=== PATIENT | female | born 1965 | race Caucasian/White ===

== ENCOUNTER 2020-01-18 05:47 | Day surgery (SDC) | payer OTHER ==
[~2020-01-18 05:47] MED LIST: DIPRIVAN 200 MG/20 ML IV ONE; Ketamine HCl 50 MG/ML ONE
[2020-01-18] MEDS ORDERED: Lactated Ringers 1,000 ML IV SCH (06:30)
[2020-01-18 08:49] VITALS: O2SAT 100
[2020-01-18 08:55] VITALS: BP 143/93; PULSE 84
--- NOTE | 2020-01-18 15:32 | OP ---
SURGERY DATE/TIME: 01/18/2020 0732 PREOPERATIVE DIAGNOSIS: Screening exam. POSTOPERATIVE DIAGNOSES: 1) Normal colon although inadequate prep in the right hemicolon. 2) Sigmoid diverticulosis. PROCEDURE: Colonoscopy. SURGEON: Dr. Tarango. ANESTHESIA: MAC. Medications given by anesthesia department. HISTORY: The patient is a 54 year old white female presenting now for screening colonoscopy. She reports her father had colon cancer. The patient was appraised of the risks of the procedure including the risk of perforation, phlebitis, untoward reaction to medication, bleeding and missed lesions. The patient verbalized her understanding and desired to have the procedure performed. DESCRIPTION OF PROCEDURE: The patient was given the medications by the anesthesia department. She had continuous pulse oximetry, ECG monitoring, intermittent blood pressure monitoring and tidal CO2 monitoring during the examination. She was placed in the left lateral decubitus position. A digital rectal examination was performed and revealed normal anal sphincter tone and no masses. The flexible Olympus pediatric colonoscope was used to intubate the rectum. A view of the colon was developed sequentially to the cecum. Initially the colon appeared to be fairly well prepped until we got to the proximal transverse colon where there was noted to be solid stool. By the time I reached the cecum the stool was completely occluding our view of the cecum although the ascending colon appeared to be without any lesions. Upon insertion and withdrawal, including a retroflex view in the rectum was noted a few scattered sigmoid diverticula. Otherwise no mucosal lesions were encountered. The scope was removed from the patient who tolerated the procedure well and was sent back to OP recovery in good condition. The prep was noted to be inadequate in the right side of the colon although fairly good in the left side of the colon and through most of the transverse colon.
== END 2020-01-18 08:45 | disposition home or self-care (01) ==
LOC: SDC 05:47
PROVIDERS: ATTEND Family Medicine
DX: Z12.11 Encounter for screening for malignant neoplasm of colon (principal); Z80.0 Family history of malignant neoplasm of digestive organs; K57.30 Diverticulosis of large intestine without perforation or abscess without bleeding
CPT/HCPCS: J2704

== ENCOUNTER 2020-03-23 12:04 | Emergency (ER) | payer OTHER ==
--- NOTE | 2020-03-23 12:06 | ERPHSYRPT ---
- History of Present Illness Time Seen by Provider: 03/23/20 12:06 Historian: patient Exam Limitations: clinical condition Physician History: This patient is a 54-year-old white female who is a poor historian and was brought into the emergency department by family members. She was having complaints of chest pain and confusion. She is somewhat confused. Patient states that she has not been eating or drinking well for a week. She has been having vomiting. Patient has a history of chronic angina and takes nitroglycerin on a as needed basis. Patient has history of hypertension anxiety and gastroesophageal reflux disease. Timing/Duration: today Activities at Onset: none Location: substernal, central Chest Pain Radiation: no radiation Severity of Pain-Max: mild Severity of Pain-Current: mild Associated Symptoms: nausea, vomiting, weakness Prior Chest Pain/Cardiac Workup: no prior chest pain, stress test Nitro Today/Relief: 0.4 mg x 1, provided at home Aspirin Treatment Today: no aspirin today Allergies/Adverse Reactions: tramadol Adverse Reaction (Verified 01/18/20 06:31) Vomiting Home Medications: Gabapentin 300 mg PO HS 01/08/20 [History] Ibuprofen 600 mg PO TID 01/08/20 [History] Lisinopril 20 mg [Zestril 20 MG] 20 mg PO BID 01/08/20 [History] Nitroglycerin 0.4 mg Tablet [Nitrostat 0.4 MG Tablet] 0.4 mg SL UD 01/08/20 [History] Omeprazole 20 mg PO DAILY 01/08/20 [History] Quetiapine Fumarate 50 mg PO BID 01/08/20 [History] Quetiapine Fumarate 400 mg PO HS 01/08/20 [History] Travel Risk - International Travel Have you traveled outside of the country in past 3 weeks: No - Coronavirus Screening Are you exhibiting any of the following symptoms?: No Close contact with a COVID-19 positive Pt in past 14-21 Days: No - Review of Systems Constitutional: Weakness Eyes: No Symptoms Ears, Nose, & Throat: No Symptoms Respiratory: No Symptoms Cardiac: Chest Pain Abdominal/Gastrointestinal: Nausea, Vomiting, No Abdominal Pain Genitourinary Symptoms: No Symptoms Musculoskeletal: Arthralgias, Myalgias Skin: No Symptoms Neurological: Lethargy, Other (Confusion) Psychological: Anxiety Endocrine: No Symptoms Hematologic/Lymphatic: No Symptoms Immunological/Allergic: No Symptoms All Other Systems: Reviewed and Negative - Past Medical History Pertinent Past Medical History: Yes Neurological History: No Pertinent History ENT History: No Pertinent History Cardiac History: High Cholesterol, Other Respiratory History: No Pertinent History Endocrine Medical History: No Pertinent History Musculoskeletal History: No Pertinent History GI Medical History: GERD History: No Pertinent History Psycho-Social History: Anxiety Female Reproductive Disorders: No Pertinent History Other Medical History: C/O CHEST PAINS STATES THAT SHE USES NITROGYLERCIN X 1 THAT WAS HELPFUL. PT HAS HAD STRESS TEST IN NOVEMBER - Past Surgical History Past Surgical History: Yes Neuro Surgical History: No Pertinent History Cardiac: No Pertinent History Respiratory: No Pertinent History Gastrointestinal: No Pertinent History Genitourinary: No Pertinent History Musculoskeletal: Other Female Surgical History: Tubal Ligation Other Surgical History: HEEL SPUR - Social History Smoking Status: Never smoker Exposure to second hand smoke: Yes Drug Use: none - Nursing Vital Signs Nursing Vital Signs: Initial Vital Signs Temperature 99.0 F 03/23/20 12:22 Pulse Rate 120 H 03/23/20 12:22 Respiratory Rate 27 H 03/23/20 12:22 Blood Pressure 68/40 03/23/20 12:22 O2 Sat by Pulse Oximetry 92 L 03/23/20 12:22 Pain Scale Pain Intensity 2 - Physical Exam General Appearance: lethargy, obese Eye Exam: PERRL/EOMI, eyes nml inspection Ears, Nose, Throat Exam: normal ENT inspection, moist mucous membranes Neck Exam: normal inspection, non-tender, supple, full range of motion Respiratory Exam: normal breath sounds, lungs clear, airway intact, No chest tenderness, No respiratory distress Cardiovascular Exam: tachycardia Gastrointestinal/Abdomen Exam: soft, normal bowel sounds, No tenderness Pelvic Exam: not done Rectal Exam: not done Back Exam: normal inspection, normal range of motion, No CVA tenderness, No vertebral tenderness Extremity Exam: normal inspection, normal range of motion, pelvis stable Neurologic Exam: disoriented, confusion, intoxicated appearance Skin Exam: normal color, warm, dry Lymphatic Exam: No adenopathy SpO2 Interpretation: normal O2 Delivery: Room Air - Course Nursing assessment & vital signs reviewed: Yes EKG Interpreted by Me: RATE ([id number]), Sinus Tach, NORMAL AXIS, NORMAL INTERVALS, NORMAL QRS, Other (No acute ischemic changes. No comparison EKG.) Ordered Tests: Active Orders 24 hr Category Date Time Status Crinkling Machine Operator STAT Care 03/23/20 12:24 Active Clean Catch Urine Specimen STAT Care 03/23/20 12:23 Active EKG-ER Only STAT Care 03/23/20 12:23 Active IV Insertion STAT Care 03/23/20 12:23 Active Pulse Oximetry (ED) STAT Care 03/23/20 12:23 Active CHEST 1 VIEW (PORTABLE) Stat Exams 03/23/20 16:09 Completed HEAD WITHOUT CONTRAST [CT] Stat Exams 03/23/20 12:25 Completed ACETAMINOPHEN Stat Lab 03/23/20 12:30 Completed CBC W DIFF Stat Lab 03/23/20 12:30 Completed CMP Stat Lab 03/23/20 12:30 Completed D-DIMER QUANTITATIVE Stat Lab 03/23/20 12:30 Completed ETHYL ALCOHOL Stat Lab 03/23/20 12:30 Completed Manual Differential NC Stat Lab 03/23/20 12:30 Completed NT PRO BNP Stat Lab 03/23/20 12:30 Completed SALICYLATE Stat Lab 03/23/20 12:30 Completed TROPONIN Q3H Lab 03/23/20 12:30 Completed TROPONIN Q3H Lab 03/23/20 16:00 Completed TROPONIN Q3H Lab 03/23/20 18:30 Ordered TROPONIN Q3H Lab 03/23/20 21:30 Ordered TROPONIN Q3H Lab 03/24/20 00:30 Ordered UA W/RFX UR CULTURE Stat Lab 03/23/20 16:40 Ordered Urine Triage Profile Stat Lab 03/23/20 16:40 Ordered Medication Summary Discontinued Medications Generic Name Dose Route Start Last Admin Trade Name Freq PRN Reason Stop Dose Admin Sodium Chloride Confirm 03/23/20 12:18 Sodium Chloride 0.9% 1000 Ml Administered 03/23/20 12:19 Dose 1,000 mls @ ud .ROUTE .STK-MED ONE Sodium Chloride 1,000 mls @ 999 mls/hr 03/23/20 12:23 03/23/20 13:55 Sodium Chloride 0.9% 1000 Ml IV 03/23/20 13:23 Infused .Q1H1M STA Infusion Sodium Chloride 1,000 mls @ 999 mls/hr 03/23/20 14:10 03/23/20 16:11 Sodium Chloride 0.9% 1000 Ml IV 03/23/20 15:10 Infused .Q1H1M STA Infusion Sodium Chloride Confirm 03/23/20 14:11 Sodium Chloride 0.9% 1000 Ml Administered 03/23/20 14:12 Dose 1,000 mls @ ud .ROUTE .STK-MED ONE Sodium Chloride 1,000 mls @ 999 mls/hr 03/23/20 15:27 03/23/20 16:42 Sodium Chloride 0.9% 1000 Ml IV 03/23/20 16:27 Infused .Q1H1M STA Infusion Sodium Chloride Confirm 03/23/20 15:30 Sodium Chloride 0.9% 1000 Ml Administered 03/23/20 15:31 Dose 1,000 mls @ ud .ROUTE .STK-MED ONE Lab/Rad Data: Laboratory Result Diagrams 03/23/20 12:30 03/23/20 12:30 Laboratory Results 03/23/20 03/23/20 03/23/20 Range/Units 16:00 12:30 12:30 WBC (4.0-10.5) K/mm3 RBC (4.1-5.4) M/mm3 Hgb (12.0-16.0) gm/dl Hct (35-47) % MCV (78-100) fl MCH (26-32) pg MCHC (32-36) g/dl RDW (11.5-14.0) % Plt Count (150-450) K/mm3 MPV (7.5-11.0) fl Segmented Neutrophils (36.0-66.0) % Band Neutrophils (0.0-2.0) % Lymphocytes (Manual) (24-44) % Monocytes (Manual) (0.0-12.0) % Platelet Estimate (NORMAL) RBC Morphology D-Dimer 2876 H* (215-500) ng/mL Sodium (137-145) mmol/L Potassium (3.5-5.1) mmol/L Chloride (98-107) mmol/L Carbon Dioxide (22-30) mmol/L Anion Gap (5-15) MEQ/L BUN (7-17) mg/dL Creatinine (0.52-1.04) mg/dL Estimated GFR ML/MIN Glucose (74-106) mg/dL Calcium (8.4-10.2) mg/dL Total Bilirubin (0.2-1.3) mg/dL AST (14-36) U/L ALT (0-35) U/L Alkaline Phosphatase (38-126) U/L Troponin I < 0.012 < 0.012 (0.000-0.034) ng/mL NT-Pro-B Natriuret Pep (0-900) pg/mL Serum Total Protein (6.3-8.2) g/dL Albumin (3.5-5.0) g/dL Salicylates (2-20) mg/dL Acetaminophen (10-30) ug/ml Ethyl Alcohol (0-10) mg/dL 03/23/20 03/23/20 Range/Units 12:30 12:30 WBC 6.5 (4.0-10.5) K/mm3 RBC 7.68 H* (4.1-5.4) M/mm3 Hgb 21.1 H (12.0-16.0) gm/dl Hct 61.7 H (35-47) % MCV 80.3 (78-100) fl MCH 27.5 (26-32) pg MCHC 34.2 (32-36) g/dl RDW 18.4 H (11.5-14.0) % Plt Count 215 (150-450) K/mm3 MPV 9.3 (7.5-11.0) fl Segmented Neutrophils 82 H (36.0-66.0) % Band Neutrophils 10 H (0.0-2.0) % Lymphocytes (Manual) 5 L (24-44) % Monocytes (Manual) 3 (0.0-12.0) % Platelet Estimate NORMAL (NORMAL) RBC Morphology NORMAL D-Dimer (215-500) ng/mL Sodium 132 L (137-145) mmol/L Potassium 3.2 L (3.5-5.1) mmol/L Chloride 96 L (98-107) mmol/L Carbon Dioxide 16 L* (22-30) mmol/L Anion Gap 22.9 H (5-15) MEQ/L BUN 89 H (7-17) mg/dL Creatinine 6.85 H (0.52-1.04) mg/dL Estimated GFR 6.7 ML/MIN Glucose 232 H (74-106) mg/dL Calcium 8.1 L (8.4-10.2) mg/dL Total Bilirubin 0.50 (0.2-1.3) mg/dL AST 20 (14-36) U/L ALT 20 (0-35) U/L Alkaline Phosphatase 161 H (38-126) U/L Troponin I (0.000-0.034) ng/mL NT-Pro-B Natriuret Pep 1020 H (0-900) pg/mL Serum Total Protein 7.7 (6.3-8.2) g/dL Albumin 3.4 L (3.5-5.0) g/dL Salicylates < 1.0 L (2-20) mg/dL Acetaminophen < 10 L (10-30) ug/ml Ethyl Alcohol < 10 (0-10) mg/dL - Progress Progress: improved, re-examined Air Movement: good Progress Note: 03/23/20 14:06 Patient is now up walking on her own more conversant and less confused. 03/23/20 15:[address] Carrington at [facility] emergency department. I reviewed the patient history, condition, EKG findings, x-ray results and laboratory results. They do not have intensive care unit beds at this time. They are going to double check that. I think we are going to go ahead and continue hydrating this patient and repeat vital signs and possible repeat labs. If the patient's mean arterial blood pressure improves he feels that we can transfer the patient to a monitored non-ICU bed. Blood Culture(s) Obtained: Yes - Departure Departure Disposition: Transfer Clinical Impression: Acute renal failure, Hypotension, Chest pain, Shortness of breath, Elevated troponin, Elevated d-dimer Condition: Fair Critical Care Time: Yes Critical Care Time(excluding separately billable procedures): Critical 30-74 mins Referrals: GERONIMO MARTINEZ [Primary Care Provider] -
[2020-03-23] MEDS ORDERED: Sodium Chloride 0.9% 1000 ML 1,000 ML ONE ×3 (12:18→15:30)
[2020-03-23] MEDS ORDERED: Sodium Chloride 0.9% 1000 ML 1,000 ML IV STA ×3 (12:23→15:27)
[2020-03-23 13:17] LABS: ALBUMIN 3.4 g/dL (3.5-5.0); ALKALINE PHOSPHATASE 161 U/L (38-126); ANION GAP 22.9 MEQ/L (5-15); BLOOD UREA NITROGEN 89 mg/dL (7-17); CHLORIDE 96 mmol/L (98-107); Calcium 8.1 mg/dL (8.4-10.2); Creatinine 1 6.85 mg/dL (0.52-1.04); EST GLOMERULAR FILTRATION RATE 6.7 ML/MIN; Glucose 232 mg/dL (74-106); NT PRO BNP 1020 pg/mL (0-900); Potassium 3.2 mmol/L (3.5-5.1); SGOT/AST 20 U/L (14-36); SGPT/ALT 20 U/L (0-35); SODIUM 132 mmol/L (137-145); Total Protein 7.7 g/dL (6.3-8.2)
[2020-03-23 13:18] LABS: Hematocrit 61.7 % (35-47); Hemoglobin 21.1 gm/dl (12.0-16.0); Mean Cell Volume 80.3 fl (78-100); Mean Corpuscular Hemoglobin 27.5 pg (26-32); Mean Corpuscular Hgb Concent. 34.2 g/dl (32-36); Mean Platelet Volume 9.3 fl (7.5-11.0); Platelet Count 215 K/mm3 (150-450); Red Cell Distribution Width 18.4 % (11.5-14.0); White Blood Count 6.5 K/mm3 (4.0-10.5)
[2020-03-23 13:27] LABS: Red Blood Count 7.68 M/mm3 (4.1-5.4)
[2020-03-23 13:29] LABS: ACETAMINOPHEN < 10 ug/ml (10-30); Carbon Dioxide 16 mmol/L (22-30); ETHYL ALCOHOL < 10 mg/dL (0-10); SALICYLATE < 1.0 mg/dL (2-20)
--- NOTE | 2020-03-23 13:40 | XRAY ---
Indication: Confusion. Multiple contiguous axial images obtained through the head without contrast. Comparison: None Normal appearing brain parenchyma, ventricles, and bony calvarium. Visualized paranasal sinuses and mastoid air cells are clear. Impression: Normal CT head without contrast exam.
[2020-03-23 14:21] VITALS: PULSE 122
[2020-03-23 15:31] LABS: BAND 10 % (0.0-2.0); Lymphocytes 5 % (24-44); Monocyte 3 % (0.0-12.0); Neutrophils 82 % (36.0-66.0); Total Cells Counted 100
[2020-03-23 15:32] LABS: Platelet Estimate NORMAL (NORMAL)
--- NOTE | 2020-03-23 17:04 | XRAY ---
Indication: Chest pain, cough, short of breath. Comparison: None Portable chest demonstrates diffuse left lung airspace disease without large effusion. Remaining heart and right lung unremarkable. Bony thorax intact with mild levoscoliosis centered at T3.
[2020-03-23 17:07] VITALS: BP 85/58; O2SAT 94
[2020-03-23 18:44] LABS: Appearance CLOUDY (CLEAR); Bacteria RARE /HPF (NEGATIVE); Bilirubin SMALL (NEGATIVE); Blood LARGE Ery/ul (0-5); Epithelial Cells RARE /HPF (FEW); Glucose NEGATIVE (NEGATIVE); Ketones NEGATIVE (NEGATIVE); Leukocyte Esterase TRACE (NEGATIVE); Mucus SLIGHT /HPF (NEGATIVE); Nitrite NEGATIVE (NEGATIVE); Protein,Urine Dip 100 (Negative); RBC 26-50 /HPF (0-2); Urobilinogen 4 mg/dL (0-1)
[2020-03-23 19:13] LABS: Amphetamine,Urine NEGATIVE (NEGATIVE); Barbiturate,Urine NEGATIVE (NEGATIVE); Benzodiazepine,Urine NEGATIVE (NEGATIVE); Cocaine,Urine NEGATIVE (NEGATIVE)
[2020-03-23 19:14] LABS: Methadone,Urine NEGATIVE (NEGATIVE); Opiate,Urine NEGATIVE (NEGATIVE); PCP,Urine NEGATIVE (NEGATIVE); THC,Urine NEGATIVE (NEGATIVE)
== END 2020-03-23 18:38 | disposition short-term general hospital (02) ==
LOC: ED 12:04
DX: N17.9 Acute kidney failure, unspecified (principal); I95.9 Hypotension, unspecified; R07.9 Chest pain, unspecified; R06.02 Shortness of breath; R74.8 Abnormal levels of other serum enzymes; R79.89 Other specified abnormal findings of blood chemistry
CPT/HCPCS: 36000; 36415; 51702; 70450; 71045; 80053; 80307; 81001; 83880; 84484; 85025; 85379; 87086; 93005; 93041; 94760; 96360; 96361; 99285; 99291; G0480

== ENCOUNTER 2020-07-07 19:04 | Emergency (ER) | payer OTHER ==
[2020-07-07] MEDS ORDERED: TORAdol 30 mg Injection ONE (19:22)
[2020-07-07] MEDS: TORAdol 30 mg Injection IV ONE (19:23)
[2020-07-07 19:30] VITALS: O2SAT 97
--- NOTE | 2020-07-07 20:02 | ERPHSYRPT ---
- History of Present Illness Time Seen by Provider: 07/07/20 19:20 Source: patient Exam Limitations: no limitations Patient Subjective Stated Complaint: pt states "I rolled my ankle at work today." Triage Nursing Assessment: pt ambulated into the er; pt is axo x3; c/o ankle/ foot injury; states 10/10 pain left ankle; left foot swollen; left mule tender to the touch; positive pulses to left pedal; good cap refill to LLE; hypertensive; tachycardic Physician History: Patient is a 54-year-old female presents to our ED with complaints of pain to her left lateral ankle and foot. Patient states she was at work earlier today. She inverted her left ankle. Patient has been ambulating on her involved ankle however the pain is significant. Patient rates pain 10 out of 10 especially upon weightbearing. No other injuries reported. Pain described as an ache that is localized. No radiation. Patient denies knee hip back pain. No associated numbness tingling or weakness. Patient voices no other complaints or concerns at this time. Method of Injury: twisted Occurred: this afternoon Quality: constant Severity of Pain-Max: moderate Severity of Pain-Current: mild Lower Extremities Pain: foot: left, ankle: left Modifying Factors: Improves With: other (Modifying factors include pain with weightbearing) Associated Symptoms: none Allergies/Adverse Reactions: tramadol Adverse Reaction (Verified 07/07/20 19:13) Vomiting Home Medications: Gabapentin 300 mg PO HS 01/08/20 [History] Ibuprofen 600 mg PO TID 01/08/20 [History] Lisinopril 20 mg [Zestril 20 MG] 20 mg PO BID 01/08/20 [History] Nitroglycerin 0.4 mg Tablet [Nitrostat 0.4 MG Tablet] 0.4 mg SL UD 01/08/20 [History] Omeprazole 20 mg PO DAILY 01/08/20 [History] Quetiapine Fumarate 50 mg PO BID 01/08/20 [History] Quetiapine Fumarate 400 mg PO HS 01/08/20 [History] Hx Tetanus, Diphtheria Vaccination/Date Given: Yes Hx Influenza Vaccination/Date Given: Yes Hx Pneumococcal Vaccination/Date Given: No Travel Risk - International Travel Have you traveled outside of the country in past 3 weeks: No - Coronavirus Screening Are you exhibiting any of the following symptoms?: No Close contact with a COVID-19 positive Pt in past 14-21 Days: No - Review of Systems Constitutional: No Symptoms, No Fever, No Chills Eyes: No Symptoms Ears, Nose, & Throat: No Symptoms Respiratory: No Symptoms, No Cough, No Dyspnea Cardiac: No Symptoms, No Chest Pain, No Edema, No Syncope Abdominal/Gastrointestinal: No Symptoms, No Abdominal Pain, No Nausea, No Vomiting, No Diarrhea Genitourinary Symptoms: No Symptoms, No Dysuria Musculoskeletal: No Symptoms, No Back Pain, No Neck Pain Skin: No Symptoms, No Rash Neurological: No Symptoms, No Dizziness, No Focal Weakness, No Sensory Changes Psychological: No Symptoms Endocrine: No Symptoms Hematologic/Lymphatic: No Symptoms Immunological/Allergic: No Symptoms All Other Systems: Reviewed and Negative - Past Medical History Pertinent Past Medical History: Yes Neurological History: No Pertinent History ENT History: No Pertinent History Cardiac History: High Cholesterol, Other Respiratory History: COPD Endocrine Medical History: No Pertinent History Musculoskeletal History: No Pertinent History GI Medical History: GERD History: No Pertinent History Psycho-Social History: Anxiety, Depression Female Reproductive Disorders: No Pertinent History Other Medical History: C/O CHEST PAINS STATES THAT SHE USES NITROGYLERCIN X 1 THAT WAS HELPFUL. PT HAS HAD STRESS TEST IN NOVEMBER - Past Surgical History Past Surgical History: Yes Neuro Surgical History: No Pertinent History Cardiac: No Pertinent History Respiratory: No Pertinent History Gastrointestinal: No Pertinent History Genitourinary: No Pertinent History Musculoskeletal: Other Female Surgical History: Tubal Ligation Other Surgical History: HEEL SPUR - Social History Smoking Status: Never smoker Exposure to second hand smoke: Yes Drug Use: none Patient Lives Alone: Yes - Female History Hx Now: No - Nursing Vital Signs Nursing Vital Signs: Initial Vital Signs Temperature 98.3 F 07/07/20 19:13 Pulse Rate 103 H 07/07/20 19:13 Respiratory Rate 24 07/07/20 19:13 Blood Pressure 156/104 07/07/20 19:13 O2 Sat by Pulse Oximetry 97 07/07/20 19:13 Pain Scale Pain Intensity 4 - Physical Exam General Appearance: no apparent distress, alert, other (Patient sitting up in bed. She is conversant well-appearing and in no acute distress.) Eyes, Ears, Nose, Throat Exam: moist mucous membranes Neck Exam: non-tender, supple Cardiovascular/Respiratory Exam: chest non-tender, normal breath sounds, regular rate/rhythm, no respiratory distress Gastrointestinal/Abdominal Exam: non-tender, guarding Back Exam: normal inspection, No vertebral tenderness Hips Exam: bilateral: non-tender, normal inspection, normal range of motion, no evidence of injury Legs Exam: bilateral leg: non-tender, normal inspection, normal range of motion, no evidence of injury Knees Exam: bilateral knee: non-tender, normal inspection, normal range of motion, no evidence of injury Ankle Exam: right ankle: non-tender, normal inspection, normal range of motion, no evidence of injury, other (Guarded dorsiflexion plantarflexion left ankle. Overlying soft tissue intact.), left ankle: pain, soft tissue tenderness, swelling Foot Exam: right foot: non-tender, normal inspection, normal range of motion, no evidence of injury, left foot: pain, soft tissue tenderness, swelling, other (Tenderness to palpation at lateral aspect of left foot. Most of the tenderness is located just over the cuboid bone.) Neuro/Tendon Exam: normal sensation, normal motor functions Mental Status Exam: alert, oriented x 3, cooperative Skin Exam: normal color, warm, dry, No laceration SpO2 Interpretation: normal SpO2: 97 O2 Delivery: Room Air - Course Nursing assessment & vital signs reviewed: Yes - Radiology Exams Foot X-ray Interpretation: Teleradiologist Report (Paracentesis. Tiny lateral ankle foreign bodies and small heel spur. Otherwise negative.) Ankle X-ray Interpretation: Teleradiologist Report (No comps tiny lateral ankle foreign bodies and small heel spur otherwise negative.) Ordered Tests: Active Orders 24 hr Category Date Time Status ANKLE (3 VIEWS) Stat Exams 07/07/20 19:39 Taken FOOT (MINIMUM 3 VIEWS) Stat Exams 07/07/20 19:39 Taken Medication Summary Discontinued Medications Generic Name Dose Route Start Last Admin Trade Name Freq PRN Reason Stop Dose Admin Ketorolac Tromethamine 30 mg 07/07/20 19:13 07/07/20 19:23 Toradol 30 Mg Injection IV 07/07/20 19:14 30 mg STAT ONE Administration Ketorolac Tromethamine Confirm 07/07/20 19:22 Toradol 30 Mg Injection Administered 07/07/20 19:23 Dose 30 mg .ROUTE .[employer]-MED ONE - Progress Progress: improved Progress Note: No x-ray negative for fracture dislocation. Small foreign bodies observed. Heel spur observed. No fracture. Patient given bilateral axillary crutches. Patient agrees to follow-up with her primary care doctor within 48 hours for re evaluation. 07/07/20 20:43 Counseled pt/family regarding: diagnosis, need for follow-up, rad results - Departure Departure Disposition: Home Clinical Impression: Ankle sprain, Foreign body in foot, Heel spur Condition: Stable Critical Care Time: No Referrals: GERONIMO MARTINEZ [Primary Care Provider] - Additional Instructions: Discharge/Care Plan [email or web address] was seen on 07/07/20 in the Emergency Room. The patient was counseled regarding Diagnosis,Lab results, Imaging studies, need for follow up and when to return to the Emergency Room. Prescriptions given: Discharge Note I have spoken with the patient and/or caregivers. I have explained the patient's condition, diagnosis and treatment plan based on the information available to me at this time. I have answered the patient's and/or caregiver's questions and addressed any concerns. The patient and/or caregivers have as good understanding of the patient's diagnosis, condition and treatment plan as can be expected at this point. The vital signs have been stable. The patient's condition is stable and appropriate for discharge from the emergency department. The patient will pursue further outpatient evaluation with the primary care physician or other designated or consulting physician as outlined in the discharge instructions. The patient and/or caregivers are agreeable to this plan of care and follow-up instructions have been explained in detail. The patient and/or caregivers have received these instruction. The patient/and or caregivers are aware that any significant change in condition or worsening of symptoms should prompt an immediate return to this or the closest emergency department or call 911.
[2020-07-07 20:52] VITALS: BP 149/99; PULSE 92
--- NOTE | 2020-07-08 08:38 | XRAY ---
Indication: Pain following tripping injury. Comparison: None 3 nonweightbearing views left foot demonstrates multiple tiny lateral ankle soft tissue foreign bodies and small plantar heel spur. No other bony, articular, or soft tissue abnormalities.
--- NOTE | 2020-07-08 08:43 | XRAY ---
Indication: Pain following tripping injury. Comparison: None 3 view left ankle demonstrates multiple tiny lateral soft tissue foreign bodies and small plantar heel spur. No other bony, articular, or soft tissue abnormalities.
== END 2020-07-07 20:57 | disposition home or self-care (01) ==
LOC: ED 19:04
DX: S93.402A Sprain of unspecified ligament of left ankle, initial encounter (principal); X50.9XXA Other and unspecified overexertion or strenuous movements or postures, initial encounter; Y93.89 Activity, other specified; Y92.89 Other specified places as the place of occurrence of the external cause; Y99.0 Civilian activity done for income or pay; M25.572 Pain in left ankle and joints of left foot
CPT/HCPCS: 73610; 73630; 96374; 99284; J1885

== ENCOUNTER 2022-01-24 12:07 | Day surgery (SDC) | payer OTHER ==
[2022-01-24] MEDS ORDERED: Lactated Ringers 1,000 ML IV ONE (12:08)
[2022-01-24] MEDS ORDERED: LIDOCAINE HCL 2% 100 MG/5 ML IJ ONE (12:08)
[2022-01-24] MEDS ORDERED: DIPRIVAN 200 MG/20 ML IV ONE (14:25)
--- NOTE | 2022-01-24 16:59 | XRAY ---
Indication: Bilateral L4-S1 MBB. Intraoperative fluoroscopy provided for 22 seconds. 2 digital spot images submitted for interpretation demonstrates posterior needle tips projecting over the expected left and right L4-S1 nerve roots. Correlate with intraoperative findings/report.
--- NOTE | 2022-01-24 17:04 | XRAY ---
22 seconds of fluoroscopy was used in surgery for a bilateral L4-S1 MBB.
== END 2022-01-24 14:52 | disposition home or self-care (01) ==
LOC: SDC-PAIN 12:07
PROVIDERS: ATTEND Psychiatry & Neurology Pain Medicine
DX: M47.816 Spondylosis without myelopathy or radiculopathy, lumbar region (principal); Z79.899 Other long term (current) drug therapy
CPT/HCPCS: 64493; 64494; 72020; 77002; J2704

== ENCOUNTER 2022-02-21 11:42 | Day surgery (SDC) | payer OTHER ==
[2022-02-21] MEDS ORDERED: BUPIVACAINE 0.5% VIAL IJ ONE (11:43)
[2022-02-21] MEDS ORDERED: DIPRIVAN 200 MG/20 ML IV ONE (14:03)
--- NOTE | 2022-02-21 16:31 | XRAY ---
Indication: Bilateral L4-S1 MBB. Intraoperative fluoroscopy provided for 14 seconds. Single digital spot image submitted for interpretation demonstrates posterior needle tips projecting over the expected left and right L4-S1 nerve roots. Correlate with intraoperative findings/report.
[2022-02-21] MEDS ORDERED: Lactated Ringers 1,000 ML IV ONE (16:37)
--- NOTE | 2022-02-21 16:43 | XRAY ---
14 seconds of fluoroscopy was used in surgery for a bilateral L4-S1 MBB.
== END 2022-02-21 14:31 | disposition home or self-care (01) ==
LOC: SDC-PAIN 11:42
PROVIDERS: ATTEND Psychiatry & Neurology Pain Medicine
DX: M47.816 Spondylosis without myelopathy or radiculopathy, lumbar region (principal); Z79.899 Other long term (current) drug therapy
CPT/HCPCS: 64493; 64494; 72020; 77002; J2704

== ENCOUNTER 2022-03-29 13:35 | Day surgery (SDC) | payer OTHER ==
[2022-03-29] MEDS ORDERED: LIDOCAINE HCL 1% 50 MG/5 ML VL PF IJ ONE (13:36)
[2022-03-29] MEDS ORDERED: Depo-Medrol 40 MG/ML IM ONE (13:36)
[2022-03-29] MEDS ORDERED: BUPIVACAINE 0.5% VIAL IJ ONE (13:36)
[2022-03-29] MEDS ORDERED: Pepcid 20 MG VIAL IV ONE (14:04)
[2022-03-29] MEDS ORDERED: Reglan 10 MG/2 ML ONE (14:05)
[2022-03-29] MEDS ORDERED: Versed 2 MG/2 ML Injection ONE (14:05)
[2022-03-29] MEDS ORDERED: DIPRIVAN 200 MG/20 ML IV ONE ×2 (15:43→15:53)
--- NOTE | 2022-03-29 16:33 | XRAY ---
Indication: Right L4-S1 RFA. Intraoperative fluoroscopy provided for 40 seconds. 5 digital spot image submitted for interpretation demonstrates posterior needle tips projecting over the expected right L4-S1 nerve roots. Correlate with intraoperative findings/report.
--- NOTE | 2022-03-29 20:36 | XRAY ---
40 seconds fluoroscopy time in surgery for right L4-S1 RFA.
== END 2022-03-29 16:25 | disposition home or self-care (01) ==
LOC: SDC-PAIN 13:35
PROVIDERS: ATTEND Psychiatry & Neurology Pain Medicine
DX: M47.816 Spondylosis without myelopathy or radiculopathy, lumbar region (principal); Z79.899 Other long term (current) drug therapy
CPT/HCPCS: 64635; 64636; 72100; 77002; J1030; J2001; J2250; J2704

== ENCOUNTER 2022-04-25 12:35 | Day surgery (SDC) | payer OTHER ==
[2022-04-25] MEDS ORDERED: Depo-Medrol 40 MG/ML IM ONE (12:36)
[2022-04-25] MEDS ORDERED: BUPIVACAINE 0.5% VIAL IJ ONE (12:36)
[2022-04-25] MEDS ORDERED: LIDOCAINE HCL 1% 50 MG/5 ML VL PF IJ ONE (12:36)
[2022-04-25] MEDS ORDERED: DIPRIVAN 200 MG/20 ML IV ONE ×2 (15:55→16:09)
[2022-04-25] MEDS ORDERED: Lactated Ringers 1,000 ML IV ONE (17:32)
--- NOTE | 2022-04-25 19:24 | XRAY ---
Indication: Left L4-S1 RFA. Intraoperative fluoroscopy provided for 34 seconds. 3 digital spot image submitted for interpretation demonstrates posterior needle tips projecting over the expected left L4-S1 nerve roots. Correlate with intraoperative findings/report.
--- NOTE | 2022-04-26 08:32 | XRAY ---
34 seconds of fluoroscopy was used in surgery for a left L4-S1 RFA.
== END 2022-04-25 16:40 | disposition home or self-care (01) ==
LOC: SDC-PAIN 12:35
PROVIDERS: ATTEND Psychiatry & Neurology Pain Medicine
DX: M47.816 Spondylosis without myelopathy or radiculopathy, lumbar region (principal)
CPT/HCPCS: 64635; 64636; 72100; 77002; J1030; J2001; J2704

== ENCOUNTER 2022-09-28 17:27 | Emergency (ER) | payer OTHER ==
--- NOTE | 2022-09-28 17:41 | ERPHSYRPT ---
- History of Present Illness Time Seen by Provider: 09/28/22 17:41 Historian: patient Exam Limitations: no limitations Patient Subjective Stated Complaint: pt here for epigastric pain for 3 days now with nausea and vomiting after eating, Triage Nursing Assessment: pt alert, resp easy, skin w/d/p, no edema noted, moves all ext well Physician History: This is an obese, 56-year-old white female patient of Dr. Martinez who presents with 3-day history of epigastric and lower substernal central nonradiating chest pain. She states she cannot describe the type of pain and is it just "hurts like hell" intermittently. It has recurred in the last 3 days intermittently after eating. There is associated nausea and vomiting after eating as well. Patient has a depressed affect losing her 4 years ago and her mother w feleciain the last several months. Patient has a history gastroesophageal reflux disease, hyperlipidemia, hypertension, COPD and anxiety/depression. Patient has had a mild cough. She is not particularly short of breath per her report. She has not had diarrhea Timing/Duration: day(s) (3) Activities at Onset: none Quality: other (Unable to describe) Location: substernal (Low), epigastric Chest Pain Radiation: no radiation Severity of Pain-Max: mild Severity of Pain-Current: mild Modifying Factors: Improves With: eating (Worsens and brings on the discomfort) Associated Symptoms: nausea, vomiting, abdominal pain (Epigastric), cough, No shortness of breath Prior Chest Pain/Cardiac Workup: no prior chest pain, no prior cardiac workup Nitro Today/Relief: no nitro taken today Aspirin Treatment Today: 81 mg x 4, provided by ED Allergies/Adverse Reactions: tramadol Adverse Reaction (Verified 09/28/22 17:29) Vomiting Home Medications: Ibuprofen 600 mg PO TID 01/08/20 [History] Nitroglycerin 0.4 mg Tablet [Nitrostat 0.4 MG Tablet] 0.4 mg SL UD 01/08/20 [History] Omeprazole 20 mg PO DAILY 01/08/20 [History] Albuterol Sulfate [Albuterol Sulfate Hfa] 18 gm IH QID 09/28/22 [History] Alendronate Sodium 10 mg PO DAILY 09/28/22 [History] Calcium/D3/Mag Oxide/C/K2/Min [Boneup 3 Per Day Capsule] 1 each PO DAILY 09/28/22 [History] Famotidine 40 mg PO DAILY 09/28/22 [History] Fluticasone/Umeclidin/Vilanter [Trelegy Ellipta 200-62.5-25] 1 puff DAILY 09/28/22 [History] Lisinopril/Hydrochlorothiazide [Lisinopril-Hctz 20-25 mg Tab] 1 ea DAILY 09/28/22 [History] Metoprolol Succinate 50 mg [Toprol Xl 50 MG] 50 mg PO BID 09/28/22 [H istory] Simvastatin 10 mg [Zocor 10MG] 10 mg PO DAILY 09/28/22 [History] Hx Tetanus, Diphtheria Vaccination/Date Given: No Hx Influenza Vaccination/Date Given: No Hx Pneumococcal Vaccination/Date Given: No Immunizations Up to Date: Yes Travel Risk - International Travel Have you traveled outside of the country in past 3 weeks: No - Coronavirus Screening Are you exhibiting any of the following symptoms?: No Close contact with a COVID-19 positive Pt in past 14-21 Days: No - Vaccine Status Have you recieved a Covid-19 vaccination: Yes 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 - Review of Systems Constitutional: No Symptoms Eyes: No Symptoms Ears, Nose, & Throat: No Symptoms Respiratory: No Symptoms Cardiac: Chest Pain (Lower substernal central) Abdominal/Gastrointestinal: Abdominal Pain (Epigastric), Nausea, Vomiting, Appetite Changes, No Diarrhea, No Constipation Genitourinary Symptoms: No Symptoms Musculoskeletal: No Symptoms Skin: No Symptoms Neurological: No Symptoms Psychological: No Symptoms Endocrine: No Symptoms Hematologic/Lymphatic: No Symptoms Immunological/Allergic: No Symptoms All Other Systems: Reviewed and Negative - Past Medical History Pertinent Past Medical History: Yes Neurological History: No Pertinent History ENT History: No Pertinent History Cardiac History: High Cholesterol, Other Respiratory History: COPD Endocrine Medical History: No Pertinent History Musculoskeletal History: No Pertinent History GI Medical History: GERD History: No Pertinent History Psycho-Social History: Anxiety, Depression Female Reproductive Disorders: No Pertinent History Other Medical History: C/O CHEST PAINS STATES THAT SHE USES NITROGYLERCIN X 1 THAT WAS HELPFUL. PT HAS HAD STRESS TEST IN NOVEMBER - Past Surgical History Past Surgical History: Yes Neuro Surgical History: No Pertinent History Cardiac: No Pertinent History Respiratory: No Pertinent History Gastrointestinal: No Pertinent History Genitourinary: No Pertinent History Musculoskeletal: Other Female Surgical History: Tubal Ligation Other Surgical History: HEEL SPUR - Social History Smoking Status: Never smoker Exposure to second hand smoke: No Drug Use: none Patient Lives Alone: No - Nursing Vital Signs Nursing Vital Signs: Initial Vital Signs Pulse Rate 87 09/28/22 17:29 Respiratory Rate 13 09/28/22 17:29 Blood Pressure 159/93 09/28/22 17:29 O2 Sat by Pulse Oximetry 95 09/28/22 17:29 Pain Scale Pain Intensity 10 - Physical Exam General Appearance: no apparent distress, alert, anxiety, obese Eye Exam: PERRL/EOMI, eyes nml inspection Ears, Nose, Throat Exam: normal ENT inspection, moist mucous membranes (edentulous) Neck Exam: normal inspection, non-tender, supple, full range of motion Respiratory Exam: normal breath sounds, lungs clear, airway intact, No chest tenderness, No respiratory distress Cardiovascular Exam: regular rate/rhythm, normal heart sounds, normal peripheral pulses Gastrointestinal/Abdomen Exam: soft, normal bowel sounds, tenderness (Mild epigastric tenderness to palpation), No guarding, No rebound Pelvic Exam: not done Rectal Exam: not done Back Exam: normal inspection, normal range of motion, No CVA tenderness, No vertebral tenderness Extremity Exam: normal inspection, normal range of motion, pelvis stable Neurologic Exam: alert, oriented x 3, cooperative, floorperson II-XII nml as tested, normal mood/affect, nml cerebellar function, nml station & gait, sensation nml Skin Exam: normal color, warm, dry Lymphatic Exam: No adenopathy SpO2 Interpretation: normal O2 Delivery: Room Air - Course Nursing assessment & vital signs reviewed: Yes EKG Interpreted by Me: RATE (95), Sinus Rhythm, NORMAL AXIS, NORMAL INTERVALS, NORMAL QRS, NORMAL ST-T, Other (No acute ischemic changes on today's twelve-lead EKG.) Ordered Tests: Active Orders 24 hr Category Date Time Status Cop Breaker STAT Care 09/28/22 17:44 Active EKG-ER Only STAT Care 09/28/22 17:42 Active IV Insertion STAT Care 09/28/22 17:42 Active Pulse Oximetry (ED) STAT Care 09/28/22 17:42 Active CHEST 1 VIEW (PORTABLE) Stat Exams 09/28/22 17:43 Taken AMYLASE Stat Lab 09/28/22 17:50 Completed CBC W DIFF Stat Lab 09/28/22 18:30 Completed CMP Stat Lab 09/28/22 17:50 Completed LIPASE Stat Lab 09/28/22 17:50 Completed TROPONIN Q4H Lab 09/28/22 17:50 Completed TROPONIN Q4H Lab 09/28/22 21:45 Ordered TROPONIN Q4H Lab 09/29/22 01:45 Ordered Medication Summary Discontinued Medications Generic Name Dose Route Start Last Admin Trade Name Freq PRN Reason Stop Dose Admin Al Hydrox/Mg Hydrox/Simethicone Confirm 09/28/22 19:33 Mag Hydrox/Al Hydrox/Simeth 30 Ml Udcup Administered 09/28/22 19:34 Dose 30 ml .ROUTE .STK-MED ONE Aspirin 324 mg 09/28/22 17:42 09/28/22 17:51 Aspirin 81 Mg Tab.Chew PO 09/28/22 17:43 324 mg STAT ONE Administration Aspirin Confirm 09/28/22 17:49 Aspirin 81 Mg Tab.Chew Administered 09/28/22 17:50 Dose 324 mg .ROUTE .STK-MED ONE Sodium Chloride 1,000 mls @ 999 mls/hr 09/28/22 17:42 09/28/22 18:56 Sodium Chloride 0.9% 1000 Ml IV 09/28/22 18:42 Infused .Q1H1M STA Infusion Sodium Chloride Confirm 09/28/22 17:49 Sodium Chloride 0.9% 1000 Ml Administered 09/28/22 17:50 Dose 1,000 mls @ ud .ROUTE .STK-MED ONE Lidocaine HCl Confirm 09/28/22 19:33 Lidocaine Hcl 2% Viscous 15 Ml Udcup Administered 09/28/22 19:34 Dose 15 ml .ROUTE .STK-MED ONE Magnesium Hydroxide 45 ml 09/28/22 19:28 09/28/22 19:34 Mag Hydrx/Alum Hyd/Simeth/Lido 45 Ml Bottle PO 09/28/22 19:29 45 ml STAT ONE Administration Ondansetron HCl 4 mg 09/28/22 17:42 09/28/22 17:51 Ondansetron Hcl 4 Mg/2 Ml Vial IV 09/28/22 17:43 4 mg STAT ONE Administration Ondansetron HCl Confirm 09/28/22 17:49 Ondansetron Hcl 4 Mg/2 Ml Vial Administered 09/28/22 17:50 Dose 4 mg .ROUTE .[facility] ONE Lab/Rad Data: Laboratory Result Diagrams 09/28/22 18:30 09/28/22 17:50 Laboratory Results 09/28/22 09/28/22 09/28/22 Range/Units 18:30 17:50 17:50 WBC 5.4 (4.0-10.5) x10^3/uL RBC 3.67 L (4.1-5.4) x10^6/uL Hgb 10.6 L (12.0-16.0) g/dL Hct 34.4 L (35-47) % MCV 93.7 (78-100) fL MCH 28.9 (26-32) pg MCHC 30.8 L (32-36) g/dL RDW 14.3 H (11.5-14.0) % Plt Count 280 (150-450) x10^3/uL MPV 10.5 (7.5-11.0) fL Gran % 63.6 (36.0-66.0) % Immature Gran % (Auto) 0.4 (0.00-0.4) % Nucleat RBC Rel Count 0.0 (0.00-0.1) % Eos # (Auto) 0.07 (0-0.5) x10^3/uL Immature Gran # (Auto) 0.02 (0.00-0.03) x10^3u/L Absolute Lymphs (auto) 1.46 (1.0-4.6) x10^3/uL Absolute Monos (auto) 0.36 (0.0-1.3) x10^3/uL Absolute Nucleated RBC 0.00 (0.00-0.01) x10^3u/L Lymphocytes % 27.1 (24.0-44.0) % Monocytes % 6.7 (0.0-12.0) % Eosinophils % 1.3 (0.00-5.0) % Basophils % 0.9 (0.0-0.4) % Absolute Granulocytes 3.43 (1.4-6.9) x10^3/uL Basophils # 0.05 (0-0.4) x10^3/uL Sodium (137-145) mmol/L Potassium (3.5-5.1) mmol/L Chloride (98-107) mmol/L Carbon Dioxide (22-30) mmol/L Anion Gap (5-15) MEQ/L BUN (7-17) mg/dL Creatinine (0.52-1.04) mg/dL Estimated GFR ML/MIN Glucose (74-106) mg/dL Calcium (8.4-10.2) mg/dL Total Bilirubin (0.2-1.3) mg/dL AST (14-36) U/L ALT (0-35) U/L Alkaline Phosphatase (38-126) U/L Troponin I < 0.012 (0.000-0.034) ng/mL Serum Total Protein (6.3-8.2) g/dL Albumin (3.5-5.0) g/dL Amylase 53 (30-110) U/L Lipase 89 (23-300) U/L 09/28/22 Range/Units 17:50 WBC (4.0-10.5) x10^3/uL RBC (4.1-5.4) x10^6/uL Hgb (12.0-16.0) g/dL Hct (35-47) % MCV (78-100) fL MCH (26-32) pg MCHC (32-36) g/dL RDW (11.5-14.0) % Plt Count (150-450) x10^3/uL MPV (7.5-11.0) fL Gran % (36.0-66.0) % Immature Gran % (Auto) (0.00-0.4) % Nucleat RBC Rel Count (0.00-0.1) % Eos # (Auto) (0-0.5) x10^3/uL Immature Gran # (Auto) (0.00-0.03) x10^3u/L Absolute Lymphs (auto) (1.0-4.6) x10^3/uL Absolute Monos (auto) (0.0-1.3) x10^3/uL Absolute Nucleated RBC (0.00-0.01) x10^3u/L Lymphocytes % (24.0-44.0) % Monocytes % (0.0-12.0) % Eosinophils % (0.00-5.0) % Basophils % (0.0-0.4) % Absolute Granulocytes (1.4-6.9) x10^3/uL Basophils # (0-0.4) x10^3/uL Sodium 142 (137-145) mmol/L Potassium 4.1 (3.5-5.1) mmol/L Chloride 108 H (98-107) mmol/L Carbon Dioxide 26 (22-30) mmol/L Anion Gap 12.7 (5-15) MEQ/L BUN 20 H (7-17) mg/dL Creatinine 0.98 (0.52-1.04) mg/dL Estimated GFR > 60.0 ML/MIN Glucose 120 H (74-106) mg/dL Calcium 9.0 (8.4-10.2) mg/dL Total Bilirubin 0.20 (0.2-1.3) mg/dL AST 30 (14-36) U/L ALT 20 (0-35) U/L Alkaline Phosphatase 122 (38-126) U/L Troponin I (0.000-0.034) ng/mL Serum Total Protein 7.0 (6.3-8.2) g/dL Albumin 4.0 (3.5-5.0) g/dL Amylase (30-110) U/L Lipase (23-300) U/L - Progress Progress: re-examined Air Movement: good Progress Note: 09/28/22 19:30 Chest x-ray was interpreted by me. ? Left lower lung lobe infiltrate versus technique. I do not appreciate fluid being present. This patient's medical issue is 1 of moderate complexity. The level of complexity and the work-up performed is based on review of the patient's past medical history, review of the patient's medication list, [facility], history of present illness and findings on physical examination. I reviewed the results of this patient's work-up including CBC, CMP, EKG, chest x-ray, amylase and lipase and urinalysis. Patient history suggests possibly a gallbladder issue. She does not appear to have an acute myocardial infarction. Patient has a history of a cough. There are possible findings of a left lower lung infiltrate. We will provide her Rocephin 1 g intravenously in the emergency department followed by [facility] as an outpatient. Patient is to avoid fatty greasy spicy foods. She is to follow-up with her primary care provider for further evaluation and management. Blood Culture(s) Obtained: No Antibiotics given: Yes Counseled pt/family regarding: lab results, diagnosis, need for follow-up, rad results Medical Desision Making - Diagnostic Testing Diagnostic test were ordered, analyzed, and reviewed by me: Yes Radiological Interpretation: Interpreted by me - Risk of complications The pt has a mod risk of morbidity or mortality based on: Need for prescription drug management - Departure Departure Disposition: Home Clinical Impression: Left pulmonary infiltrate on CXR, Vomiting Condition: Stable Critical Care Time: No Referrals: GERONIMO MARTINEZ MD [Primary Care Provider] - Follow up/PCP as directed Additional Instructions: Avoid fatty greasy spicy foods. Start drinking clear liquids such as soup, Gat orade, Jell-O. Advance your diet slowly. Follow-up with your prescribing provider on 10/01/2022 to be evaluated in the next 1 to 3 days. Take your medication as prescribed. Prescriptions: Ondansetron ODT 4 MG [Zofran Odt 4 mg] 4 mg PO Q6H PRN PRN #10 tablet PRN Reason: Vomiting Cefdinir 300 mg PO BID #14 cap
[2022-09-28] MEDS ORDERED: Sodium Chloride 0.9% 1000 ML 1,000 ML IV STA (17:42)
[2022-09-28] MEDS ORDERED: BABY ASPIRIN 81 MG CHEW PO ONE (17:42)
[2022-09-28] MEDS ORDERED: Zofran 4 MG/2 ML VIAL IV ONE (17:42)
[2022-09-28] MEDS ORDERED: Sodium Chloride 0.9% 1000 ML 1,000 ML ONE (17:49)
[2022-09-28] MEDS ORDERED: BABY ASPIRIN 81 MG CHEW ONE (17:49)
[2022-09-28] MEDS ORDERED: Zofran 4 MG/2 ML VIAL ONE (17:49)
[2022-09-28 18:12] LABS: AMYLASE 53 U/L (30-110); LIPASE 89 U/L (23-300)
[2022-09-28 18:24] LABS: ALKALINE PHOSPHATASE 122 U/L (38-126); ANION GAP 12.7 MEQ/L (5-15); BLOOD UREA NITROGEN 20 mg/dL (7-17); CHLORIDE 108 mmol/L (98-107); Carbon Dioxide 26 mmol/L (22-30); Creatinine 1 0.98 mg/dL (0.52-1.04); EST GLOMERULAR FILTRATION RATE > 60.0 ML/MIN; Glucose 120 mg/dL (74-106); Potassium 4.1 mmol/L (3.5-5.1); SGOT/AST 30 U/L (14-36); SGPT/ALT 20 U/L (0-35); SODIUM 142 mmol/L (137-145)
[2022-09-28 19:11] VITALS: O2SAT 96
[2022-09-28] MEDS ORDERED: GI COCKTAIL 45 ML (Maalox/Lidocaine) PO ONE (19:28)
[2022-09-28] MEDS ORDERED: XYLOCAINE VISCOUS 2% 15 ML CUP ONE (19:33)
[2022-09-28] MEDS ORDERED: MAALOX ES 30 ML UNIT DOSE ONE (19:33)
[2022-09-28 19:34] LABS: Absolute Neutrophil Ct (ANC) 3.43 x10^3/uL (1.4-6.9); BASOPHIL % 0.9 % (0.0-0.4); Basophil (Absolute #) 0.05 x10^3/uL (0-0.4); Eosinophil % 1.3 % (0.00-5.0); Eosinophil (Absolute #) 0.07 x10^3/uL (0-0.5); Hematocrit 34.4 % (35-47); Hemoglobin 10.6 g/dL (12.0-16.0); IMMATURE GRAN # 0.02 x10^3u/L (0.00-0.03); IMMATURE GRAN % 0.4 % (0.00-0.4); Lymphocyte (Absolute #) 1.46 x10^3/uL (1.0-4.6); Lymphocytes % 27.1 % (24.0-44.0); Mean Cell Volume 93.7 fL (78-100); Mean Corpuscular Hemoglobin 28.9 pg (26-32); Mean Corpuscular Hgb Concent. 30.8 g/dL (32-36); Mean Platelet Volume 10.5 fL (7.5-11.0); Monocyte (Absolute #) 0.36 x10^3/uL (0.0-1.3); Monocytes % 6.7 % (0.0-12.0); Neutrophil % 63.6 % (36.0-66.0); Platelet Count 280 x10^3/uL (150-450); Red Blood Count 3.67 x10^6/uL (4.1-5.4); Red Cell Distribution Width 14.3 % (11.5-14.0); White Blood Count 5.4 x10^3/uL (4.0-10.5)
[2022-09-28 20:27] VITALS: BP 163/93; PULSE 72
--- NOTE | 2022-09-28 22:44 | XRAY ---
Indication: Chest pain and short of breath. Comparison: June 02, 2020 Portable apical lordotic chest demonstrates clearing left lung airspace disease with now scattered subsegmental atelectasis/scarring. No focal infiltrate, consolidation, or large effusion. Heart not enlarged. Bony thorax intact again with osteopenia, mild degenerative changes, and scoliosis. Impression: Nonacute chest with chronic features.
== END 2022-09-28 20:27 | disposition home or self-care (01) ==
LOC: ED 17:27
DX: R91.8 Other nonspecific abnormal finding of lung field (principal); R11.2 Nausea with vomiting, unspecified; R07.9 Chest pain, unspecified; R10.13 Epigastric pain; E78.5 Hyperlipidemia, unspecified; I10 Essential (primary) hypertension; Z79.899 Other long term (current) drug therapy
CPT/HCPCS: 36415; 71045; 80053; 82150; 83690; 84484; 85025; 93005; 93041; 94760; 96360; 96374; 99284; J2405; A9270-GY

== ENCOUNTER 2022-10-03 11:50 | Day surgery (SDC) | payer OTHER ==
[2022-10-03] MEDS ORDERED: Depo-Medrol 40 MG/ML IM ONE (11:51)
[2022-10-03] MEDS ORDERED: BUPIVACAINE 0.5% VIAL IJ ONE (11:51)
[2022-10-03] MEDS ORDERED: DIPRIVAN 200 MG/20 ML IV ONE (14:01)
[2022-10-03] MEDS ORDERED: Lactated Ringers 1,000 ML IV ONE (14:45)
--- NOTE | 2022-10-03 16:41 | XRAY ---
Indication: Right shoulder injection. Intraoperative fluoroscopy provided for 11 seconds. Single digital spot image submitted for interpretation demonstrates needle tip projecting over the right glenohumeral joint superiorly. Small amount of contrast injected for needle tip placement. Correlate with intraoperative findings/report.
--- NOTE | 2022-10-04 09:02 | XRAY ---
11 seconds of fluoroscopy was used in surgery for a right intra-articular shoulder injection.
== END 2022-10-03 14:35 | disposition home or self-care (01) ==
LOC: SDC-PAIN 11:50
PROVIDERS: ATTEND Psychiatry & Neurology Pain Medicine
DX: M19.011 Primary osteoarthritis, right shoulder (principal); Z79.899 Other long term (current) drug therapy
CPT/HCPCS: 20610; 73030; 77002; J1030; J2704; Q9966

== ENCOUNTER 2022-12-05 15:13 | Emergency (ER) | payer OTHER ==
[2022-12-05 15:29] VITALS: RESP 18; TEMP 97.2
[2022-12-05] MEDS ORDERED: BABY ASPIRIN 81 MG CHEW PO ONE (15:43)
[2022-12-05] MEDS ORDERED: BABY ASPIRIN 81 MG CHEW ONE (15:48)
[2022-12-05 16:05] LABS: Absolute Neutrophil Ct (ANC) 2.78 x10^3/uL (1.4-6.9); BASOPHIL % 0.8 % (0.0-0.4); Basophil (Absolute #) 0.04 x10^3/uL (0-0.4); Eosinophil % 1.8 % (0.00-5.0); Eosinophil (Absolute #) 0.09 x10^3/uL (0-0.5); Hematocrit 35.8 % (35-47); IMMATURE GRAN # 0.02 x10^3u/L (0.00-0.03); IMMATURE GRAN % 0.4 % (0.00-0.4); Lymphocyte (Absolute #) 1.63 x10^3/uL (1.0-4.6); Lymphocytes % 33.3 % (24.0-44.0); Mean Cell Volume 94.5 fL (78-100); Mean Corpuscular Hgb Concent. 30.7 g/dL (32-36); Mean Platelet Volume 9.8 fL (7.5-11.0); Monocyte (Absolute #) 0.34 x10^3/uL (0.0-1.3); Monocytes % 6.9 % (0.0-12.0); Neutrophil % 56.8 % (36.0-66.0); Platelet Count 284 x10^3/uL (150-450); Red Blood Count 3.79 x10^6/uL (4.1-5.4); White Blood Count 4.9 x10^3/uL (4.0-10.5)
--- NOTE | 2022-12-05 16:21 | XRAY ---
Indication: Pneumonia. Comparison: September 28, 2022 Portable chest demonstrates stable lingula infiltrate versus atelectasis. Remaining heart and right lung unremarkable. Bony thorax intact again with osteopenia, degenerative changes, scoliosis, and old right 4 rib fracture.
[2022-12-05 16:23] LABS: BILIRUBIN,TOTAL 0.3 mg/dL (0.2-1.3); Creatinine 1 1.74 mg/dL (0.52-1.04); EST GLOMERULAR FILTRATION RATE 32.1 ML/MIN; Potassium 4.2 mmol/L (3.5-5.1); Total Protein 6.9 g/dL (6.3-8.2)
--- NOTE | 2022-12-05 16:41 | ERPHSYRPT ---
- History of Present Illness Time Seen by Provider: 12/05/22 15:23 Source: patient Exam Limitations: no limitations Patient Subjective Stated Complaint: pt here for pain from shoulder to hip off and on since starting new meds, she also states she is having tremors at times in right arm.sees liang mckinnon and had injection a month ago in right shoulder Triage Nursing Assessment: pt alert, walked in, resp easy, skin w/d/p. abd soft, has equal social insurance adviser,no arm drift or leg drift Physician History: Patient is here with right shoulder pain to her right hip. No falls no trauma. Patient states that it feels like she has some pain radiating into her right arm. Patient recently had shots in her right shoulder in September. Patient had a head CT last week for similar symptoms by her PCP. No other falls or recent traumas. Patient states that she has no fever, chills, chest pain. No other active headache, neurological symptoms.. Allergies/Adverse Reactions: tramadol Adverse Reaction (Verified 12/05/22 15:23) Vomiting Home Medications: Ibuprofen 600 mg PO TID 01/08/20 [History] Nitroglycerin 0.4 mg Tablet [Nitrostat 0.4 MG Tablet] 0.4 mg SL UD 01/08/20 [History] Omeprazole 20 mg PO DAILY 01/08/20 [History] Albuterol Sulfate [Albuterol Sulfate Hfa] 18 gm IH QID 09/28/22 [History] Alendronate Sodium 10 mg PO DAILY 09/28/22 [History] Calcium/D3/Mag Oxide/C/K2/Min [Boneup 3 Per Day Capsule] 1 each PO DAILY 09/28/22 [History] Famotidine 40 mg PO DAILY 09/28/22 [History] Fluticasone/Umeclidin/Vilanter [Trelegy Ellipta 200-62.5-25] 1 puff DAILY 09/28/22 [History] Lisinopril/Hydrochlorothiazide [Lisinopril-Hctz 20-25 mg Tab] 1 ea DAILY 09/28/22 [History] Metoprolol Succinate 50 mg [Toprol Xl 50 MG] 50 mg PO BID 09/28/22 [History] Simvastatin 10 mg [Zocor 10MG] 10 mg PO DAILY 09/28/22 [History] Quetiapine Fumarate 100 mg [Seroquel 100 MG] 100 mg PO DAILY 12/05/22 [History] Hx Tetanus, Diphtheria Vaccination/Date Given: No Hx Influenza Vaccination/Date Given: No Hx Pneumococcal Vaccination/Date Given: No Immunizations Up to Date: Yes Travel Risk - International Travel Have you traveled outside of the country in past 3 weeks: No - Coronavirus Screening Are you exhibiting any of the following symptoms?: No Close contact with a COVID-19 positive Pt in past 14-21 Days: No - Vaccine Status Have you recieved a Covid-19 vaccination: Yes Ear Mold Laboratory Technician: Unknown - Vaccination Dates Date of 2cond Vaccination (if applicable): 2020 Dates if Unknown: ? - Review of Systems Constitutional: No Fever, No Chills Eyes: No Symptoms Ears, Nose, & Throat: No Symptoms Respiratory: No Cough, No Dyspnea Cardiac: No Chest Pain, No Edema, No Syncope Abdominal/Gastrointestinal: No Abdominal Pain, No Nausea, No Vomiting, No Diarrhea Genitourinary Symptoms: No Dysuria Musculoskeletal: Other (Right shoulder pain), No Back Pain, No Neck Pain Skin: No Rash Neurological: No Dizziness, No Focal Weakness, No Sensory Changes Psychological: No Symptoms Endocrine: No Symptoms All Other Systems: Reviewed and Negative - Past Medical History Pertinent Past Medical History: Yes Neurological History: No Pertinent History ENT History: No Pertinent History Cardiac History: High Cholesterol, Other Respiratory History: COPD Endocrine Medical History: No Pertinent History Musculoskeletal History: No Pertinent History GI Medical History: GERD History: No Pertinent History Psycho-Social History: Anxiety, Depression Female Reproductive Disorders: No Pertinent History Other Medical History: C/O CHEST PAINS STATES THAT SHE USES NITROGYLERCIN X 1 AT WAS HELPFUL. PT HAS HAD STRESS TEST IN NOVEMBER - Past Surgical History Past Surgical History: Yes Neuro Surgical History: No Pertinent History Cardiac: No Pertinent History Respiratory: No Pertinent History Gastrointestinal: No Pertinent History Genitourinary: No Pertinent History Musculoskeletal: Other Female Surgical History: Tubal Ligation Other Surgical History: HEEL SPUR - Social History Smoking Status: Never smoker Exposure to second hand smoke: Yes Drug Use: none Patient Lives Alone: No - Nursing Vital Signs Nursing Vital Signs: Initial Vital Signs Blood Pressure 108/83 12/05/22 15:23 O2 Sat by Pulse Oximetry 95 12/05/22 15:23 Pain Scale Pain Intensity [Right 7 Generalized] Pain Intensity 5 - Physical Exam SpO2: 94 Comments: 12/05/22 16:45 Physical Exam Vitals signs and nursing note reviewed. Constitutional: Appearance: Patient is well-developed. HENT: Head: Normocephalic and atraumatic. Eyes: Conjunctiva/sclera: Conjunctivae normal. Neck: Trachea: No tracheal deviation. Cardiovascular: Rate and Rhythm: Normal rate. Pulmonary: Effort: Pulmonary effort is normal. No respiratory distress. Abdominal: Palpations: Abdomen is soft. Musculoskeletal: General: No right shoulder tenderness on exam. no obvious deformity, sensation intact, 2+ capillary refill, 2 point tactile discrimination intact. 5 out of 5 strength. Full range of motion without pain. Compartments are soft, nontender. Overlying skin shows no tenting, bruising, ecchymosis. Skin: General: Skin is warm and dry. Neurological: Mental Status: Patient is alert and oriented to person, place, and time, behavior normal. Motor: There is no pronator drift of out-stretched arms. Muscle bulk and tone are normal. Strength is full bilaterally. Reflexes: Reflexes are 2+ and symmetric at the biceps, triceps, knees, and ankles. Plantar responses are flexor. Sensory: Light touch sense are intact in bilateral upper and lower extremities. There is no sign of neglect. Coordination: Rapid alternating movements are intact. There is no dysmetria on [id number] and [id number]. There are no abnormal or extraneous movements. Romberg is absent. Gait/Stance: Posture is normal. Gait is steady with normal steps, base, arm swing, and turning. Heel and toe walking are normal. Tandem gait is normal. - Course Nursing assessment & vital signs reviewed: Yes EKG Interpreted by Me: Sinus Rhythm (EKG shows sinus rhythm no ST changes no inverted T waves no other signs of ischemia) Ordered Tests: Active Orders 24 hr Category Date Time Status EKG-ER Only STAT Care 12/05/22 15:43 Active IV Insertion STAT Care 12/05/22 15:43 Active CHEST 1 VIEW (PORTABLE) Stat Exams 12/05/22 15:43 Completed CBC W DIFF Stat Lab 12/05/22 16:04 Completed CK-Creatinine Phosphokinase Stat Lab 12/05/22 16:04 Completed CMP Stat Lab 12/05/22 16:04 Completed TROPONIN Q4H Lab 12/05/22 16:04 Completed TROPONIN Q4H Lab 12/05/22 19:45 Ordered TROPONIN Q4H Lab 12/05/22 23:45 Ordered Medication Summary Discontinued Medications Generic Name Dose Route Start Last Admin Trade Name Freq PRN Reason Stop Dose Admin Aspirin 324 mg 12/05/22 15:43 12/05/22 15:48 Aspirin 81 Mg Tab.Chew PO 12/05/22 15:44 324 mg STAT ONE Administration Aspirin Confirm 12/05/22 15:48 Aspirin 81 Mg Tab.Chew Administered 12/05/22 15:49 Dose 324 mg .ROUTE .[employer]-MED ONE Lab/Rad Data: Laboratory Result Diagrams 12/05/22 16:04 12/05/22 16:04 Laboratory Results 12/05/22 12/05/22 12/05/22 Range/Units 16:04 16:04 16:04 WBC 4.9 (4.0-10.5) x10^3/uL RBC 3.79 L (4.1-5.4) x10^6/uL Hgb 11.0 L (12.0-16.0) g/dL Hct 35.8 (35-47) % MCV 94.5 (78-100) fL MCH 29.0 (26-32) pg MCHC 30.7 L (32-36) g/dL RDW 13.0 (11.5-14.0) % Plt Count 284 (150-450) x10^3/uL MPV 9.8 (7.5-11.0) fL Gran % 56.8 (36.0-66.0) % Immature Gran % (Auto) 0.4 (0.00-0.4) % Nucleat RBC Rel Count 0.0 (0.00-0.1) % Eos # (Auto) 0.09 (0-0.5) x10^3/uL Immature Gran # (Auto) 0.02 (0.00-0.03) x10^3u/L Absolute Lymphs (auto) 1.63 (1.0-4.6) x10^3/uL Absolute Monos (auto) 0.34 (0.0-1.3) x10^3/uL Absolute Nucleated RBC 0.00 (0.00-0.01) x10^3u/L Lymphocytes % 33.3 (24.0-44.0) % Monocytes % 6.9 (0.0-12.0) % Eosinophils % 1.8 (0.00-5.0) % Basophils % 0.8 (0.0-0.4) % Absolute Granulocytes 2.78 (1.4-6.9) x10^3/uL Basophils # 0.04 (0-0.4) x10^3/uL Sodium 140 (137-145) mmol/L Potassium 4.2 (3.5-5.1) mmol/L Chloride 104 (98-107) mmol/L Carbon Dioxide 28 (22-30) mmol/L Anion Gap 12.0 (5-15) MEQ/L BUN 30 H (7-17) mg/dL Creatinine 1.74 H (0.52-1.04) mg/dL Estimated GFR 32.1 ML/MIN Glucose 93 (74-106) mg/dL Calcium 9.0 (8.4-10.2) mg/dL Total Bilirubin 0.30 (0.2-1.3) mg/dL AST 34 (14-36) U/L ALT 18 (0-35) U/L Alkaline Phosphatase 68 (38-126) U/L Creatine Kinase 651 H (30-135) U/L Troponin I < 0.012 (0.000-0.034) ng/mL Serum Total Protein 6.9 (6.3-8.2) g/dL Albumin 4.0 (3.5-5.0) g/dL - Progress Progress: improved Progress Note: 12/05/22 16:40 Differential diagnosis includes: PNA, STEMI, NSTEMI, other infection, musculoskeletal pain, pneumothorax - We'll obtain basic labs, fluids, EKG, troponin, chest x-ray - EKG shows no ST changes - my read - O2 saturations consistently greater than 95%. - CXR shows no pneumonia, pneumothorax - my read Reevaluation: Patient does have an JUAN. Her CK is also elevated. I do suspect patient is slightly dehydrated. Certainly could be causing some of her symptoms. Her shoulder pain appears to be more chronic, possible radiculopathy. This is why she received previous injections. Full normal neurological exam. My recommendation is patient stay for continued IV fluids, check a UA on her make sure she has no other signs of infection. Patient states that she currently is borrowing somebody's car and needs to go home. Therefore, she does not want to stay for this continued work-up. I will not sign patient out AGAINST MEDICAL ADVICE. I did explain to her I would highly recommend she get fluids, have repeat creatinine, continued close monitoring. She states that she will follow- up with her PCP and return here sooner for any new or changing symptoms. You need to have your kidney function rechecked in the next 24 to 48 hours. You may do that here at the emergency department or with your PCP. Until that time he should continue to aggressively drink fluids. It would also be beneficial to check your urine for infection. You may return here at any point time for the rest of this work-up. Otherwise, follow-up with your regular PCP. Call 911 at any point time for new or changing symptoms, to return here should you not have a ride. Counseled pt/family regarding: lab results, diagnosis, need for follow-up, rad results - Departure Departure Disposition: Home Clinical Impression: JAUN (acute kidney injury), Dehydration, Right shoulder pain Condition: Stable Critical Care Time: No Referrals: GERONIMO MARTINEZ MD [Primary Care Provider] - Follow up/PCP as directed Instructions: Chronic Pain (DC) Additional Instructions: You need to have your kidney function rechecked in the next 24 to 48 hours. You may do that here at the emergency department or with your PCP. Until that time he should continue to aggressively drink fluids. It would also be beneficial to check your urine for infection. You may return here at any point time for the rest of this work-up. Otherwise, follow-up with your regular PCP. Call 911 at any point time for new or changing symptoms, to return here should you not have a ride.
[2022-12-05 16:51] VITALS: BP 115/77; PULSE 90
[2022-12-05 16:55] VITALS: O2SAT 94
== END 2022-12-05 16:57 | disposition home or self-care (01) ==
LOC: ED 15:13
DX: M25.511 Pain in right shoulder (principal); N17.9 Acute kidney failure, unspecified; E86.0 Dehydration; M25.551 Pain in right hip; E78.5 Hyperlipidemia, unspecified; Z79.899 Other long term (current) drug therapy
CPT/HCPCS: 36415; 71045; 80053; 82550; 84484; 85025; 93005; 99283; A9270-GY

== ENCOUNTER 2023-01-28 14:49 | Emergency (ER) | payer OTHER ==
[2023-01-28 15:15] VITALS: PULSE 73; RESP 16; TEMP 96.9
[2023-01-28] MEDS ORDERED: TORAdol 30 mg Injection IM ONE (15:19)
--- NOTE | 2023-01-28 15:51 | ERPHSYRPT ---
- History of Present Illness Time Seen by Provider: 01/28/23 15:01 Source: patient Exam Limitations: no limitations Patient Subjective Stated Complaint: C/O pain in her right shoulder. Patient states she fell approx 3 weeks ago and injured her neck and shoulder. She had an MRI of her neck done at that time but did not have any imaging of her shoulder completed. She states the pain in her shoulder continues to increase since that time. Triage Nursing Assessment: Patient ambulated back to ER. She is alert and oriented. No SOB. Skin tone normal. Radial pulse present to right wrist. Patient c/o pain shooting into right upper arm when bending at her right elbow. Did not have patient range her right shoulder for fear of exacerbating an injury. Physician History: 57-year-old female presented to the ER with chief complaint of right shoulder pain for the last 3 to 4 weeks after she fell and hit the side table while getting off of her couch. Patient reports taking [id number] pain medication with no significant relief, reports moderate to severe sharp pain making it difficult to have any movements of the shoulder. No numbness or tingling in the right upper extremity. She did have MRI of the neck done and was negative. Denies any chest pain palpitations or shortness of breath. On exam patient has limited range of motion at right shoulder in all direction. Distal neurovascular intact. Believe patient has adhesive capsulitis versus rotator cuff injury. Given Toradol for symptomatic relief. X-rays are obtained which are negative for acute fracture dislocation. Placed in sling and recommended outpatient orthopedic follow-up. Allergies/Adverse Reactions: paroxetine [From Paxil] Adverse Reaction (Verified 01/28/23 15:03) tramadol Adverse Reaction (Verified 01/28/23 15:03) Vomiting Home Medications: Ibuprofen 600 mg PO TID 01/08/20 [History] Nitroglycerin 0.4 mg Tablet [Nitrostat 0.4 MG Tablet] 0.4 mg SL UD 01/08/20 [History] Omeprazole 20 mg PO DAILY 01/08/20 [History] Albuterol Sulfate [Albuterol Sulfate Hfa] 18 gm IH QID 09/28/22 [History] Alendronate Sodium 10 mg PO DAILY 09/28/22 [History] Calcium/D3/Mag Oxide/C/K2/Min [Boneup 3 Per Day Capsule] 1 each PO DAILY 09/28/22 [History] Famotidine 40 mg PO DAILY 09/28/22 [History] Fluticasone/Umeclidin/Vilanter [Trelegy Ellipta 200-62.5-25] 1 puff DAILY 09/28/22 [History] Lisinopril/Hydrochlorothiazide [Lisinopril-Hctz 20-25 mg Tab] 1 ea DAILY 09/28/22 [History] Metoprolol Succinate 50 mg [Toprol Xl 50 MG] 50 mg PO BID 09/28/22 [History] Simvastatin 10 mg [Zocor 10MG] 10 mg PO DAILY 09/28/22 [History] Quetiapine Fumarate 100 mg [Seroquel 100 MG] 100 mg PO DAILY 12/05/22 [History] Hx Tetanus, Diphtheria Vaccination/Date Given: Yes Hx Influenza Vaccination/Date Given: No Hx Pneumococcal Vaccination/Date Given: No Immunizations Up to Date: Yes Travel Risk - International Travel Have you traveled outside of the country in past 3 weeks: No - Coronavirus Screening Are you exhibiting any of the following symptoms?: No Close contact with a COVID-19 positive Pt in past 14-21 Days: No - Vaccine Status Have you recieved a Covid-19 vaccination: Yes Thread Winder: Unknown - Vaccination Dates Date of 2cond Vaccination (if applicable): 2020 Dates if Unknown: ? - Review of Systems Constitutional: No Symptoms Ears, Nose, & Throat: No Symptoms Respiratory: No Symptoms Cardiac: No Symptoms Abdominal/Gastrointestinal: No Symptoms Musculoskeletal: Joint Pain Skin: No Symptoms Neurological: No Symptoms Endocrine: No Symptoms Hematologic/Lymphatic: No Symptoms - Past Medical History Pertinent Past Medical History: Yes Neurological History: Other ENT History: No Pertinent History Cardiac History: High Cholesterol, Hypertension Respiratory History: COPD Endocrine Medical History: No Pertinent History Musculoskeletal History: Fractures, Osteoarthritis GI Medical History: GERD History: No Pertinent History Psycho-Social History: Anxiety, Depression Female Reproductive Disorders: No Pertinent History Other Medical History: RADIATING PAIN INTO THE RIGHT WRIST. - Past Surgical History Past Surgical History: Yes Neuro Surgical History: No Pertinent History Cardiac: No Pertinent History Respiratory: No Pertinent History Gastrointestinal: No Pertinent History Genitourinary: No Pertinent History Musculoskeletal: Other Female Surgical History: Tubal Ligation Other Surgical History: HEEL SPUR, back ablasion - Social History Smoking Status: Never smoker Exposure to second hand smoke: Yes Drug Use: none Patient Lives Alone: No - Nursing Vital Signs Nursing Vital Signs: Initial Vital Signs Temperature 96.9 F 01/28/23 14:49 Pulse Rate 73 01/28/23 14:49 Respiratory Rate 16 01/28/23 14:49 Blood Pressure 98/75 01/28/23 14:49 O2 Sat by Pulse Oximetry 100 01/28/23 14:49 Pain Scale Pain Intensity 8 - Physical Exam General Appearance: no apparent distress, alert Eyes, Ears, Nose, Throat Exam: normal ENT inspection Neck Exam: normal inspection, non-tender, supple, full range of motion Cardiovascular/Respiratory Exam: chest non-tender, normal breath sounds, regular rate/rhythm Abdominal Exam: non-tender, soft Shoulder Exam: normal inspection, bone tenderness, limited ROM, pain, soft tissue tenderness (Right shoulder) Elbow/Forearm Exam: normal inspection, non-tender, no evidence of injury, normal ROM Neuro/Tendon Exam: normal sensation Mental Status Exam: alert, oriented x 3 Skin Exam: normal color SpO2 Interpretation: normal SpO2: 100 O2 Delivery: Room Air Ordered Tests: Active Orders 24 hr Category Date Time Status SHOULDER Stat Exams 01/28/23 15:15 Completed Medication Summary Discontinued Medications Generic Name Dose Route Start Last Admin Trade Name Los PRN Reason Stop Dose Admin Ketorolac Tromethamine 30 mg 01/28/23 15:19 01/28/23 15:58 Ketorolac Tromethamine 30 Mg/Ml Inj IM 01/28/23 15:20 30 mg STAT ONE Administration Ketorolac Tromethamine Confirm 01/28/23 15:53 Ketorolac Tromethamine 30 Mg/Ml Inj Administered 01/28/23 15:54 Dose 30 mg .ROUTE .STK-MED ONE - Progress Progress: improved, pain not gone completely, re-examined Progress Note: 01/28/23 17:28 57-year-old female presented to the ER with chief complaint of right shoulder pain for the last 3 to 4 weeks after she fell and hit the side table while getting off of her couch. Patient reports taking qhsv-wyz-[id number] pain medication with no significant relief, reports moderate to severe sharp pain making it difficult to have any movements of the shoulder. No numbness or tingling in the right upper extremity. She did have MRI of the neck done and was negative. Denies any chest pain palpitations or shortness of breath. On exam patient has limited range of motion at right shoulder in all direction. Distal neurovascular intact. Believe patient has adhesive capsulitis versus rotator cuff injury. Given Toradol for symptomatic relief. X-rays are obtained which are negative for acute fracture dislocation. Placed in sling and recommended outpatient orthopedic follow-up. Counseled pt/family regarding: diagnosis, need for follow-up, rad results Medical Desision Making - Diagnostic Testing Diagnostic test were ordered, analyzed, and reviewed by me: Yes Radiological Interpretation: Reviewed by me - Departure Departure Disposition: Home Clinical Impression: Acute shoulder pain due to trauma Condition: Stable Critical Care Time: No Referrals: GERONIMO MARTINEZ MD [Primary Care Provider] - Follow up with PCP 1 day ORTHO - LAM CYR NP [NON-STAFF PHY W/O PRIVILEGES] - Follow up/PCP as directed (Tomorrow for reevaluation) Instructions: Shoulder Sprain (DC) Additional Instructions: Take Tylenol/ibuprofen as needed for pain. Follow-up with primary care/orthoped ics for reevaluation. Avoid exertional activities. Return to ER for any worsening.
[2023-01-28] MEDS ORDERED: TORAdol 30 mg Injection ONE (15:53)
--- NOTE | 2023-01-28 16:52 | XRAY ---
Indication: Pain following fall 3 weeks ago. Comparison: September 03, 2022 3 view right shoulder unchanged again demonstrating osteopenia, mild AC degenerative changes, mild multilevel thoracic degenerative spondylosis, scoliosis, and old right 4 rib fracture. No new/acute findings.
[2023-01-28 17:09] VITALS: BP 117/80
[2023-01-28 17:27] VITALS: O2SAT 100
== END 2023-01-28 17:42 | disposition home or self-care (01) ==
LOC: ED 14:49
DX: S49.91XA Unspecified injury of right shoulder and upper arm, initial encounter (principal); W08.XXXA Fall from other furniture, initial encounter; E78.5 Hyperlipidemia, unspecified; I10 Essential (primary) hypertension; Z79.899 Other long term (current) drug therapy
CPT/HCPCS: 73030; 96372; 99283; J1885

== ENCOUNTER 2023-02-06 15:01 | Day surgery (SDC) | payer OTHER ==
[2023-02-06] MEDS ORDERED: LIDOCAINE HCL 1% 50 MG/5 ML VL PF IJ ONE (15:02)
[2023-02-06] MEDS ORDERED: Decadron 4 MG INJ IV ONE (15:02)
[2023-02-06] MEDS ORDERED: Sodium Chloride 0.9(Preservative Free) 10 ML IJ ONE (15:02)
[2023-02-06] MEDS ORDERED: Lactated Ringers 1,000 ML IV ONE (18:09)
--- NOTE | 2023-02-07 08:38 | XRAY ---
Indication: Cervical JUAN CARLOS. Intraoperative fluoroscopy provided for 24 seconds. 2 digital spot image submitted for interpretation demonstrates posterior needle tip projecting posterior to cervical thoracic junction. Small amount of contrast injected for needle tip placement. Correlate with intraoperative findings/report.
--- NOTE | 2023-02-07 11:31 | XRAY ---
24 seconds of fluoroscopy was used in surgery for a cervical JUAN CARLOS.
== END 2023-02-06 18:30 | disposition home or self-care (01) ==
LOC: SDC-PAIN 15:01
PROVIDERS: ATTEND Psychiatry & Neurology Pain Medicine
DX: M54.12 Radiculopathy, cervical region (principal)
CPT/HCPCS: 62321; 72040; 77003; J1100; J2001; Q9966

== ENCOUNTER 2023-04-17 10:18 | Day surgery (SDC) | payer MEDICAID, OTHER ==
[2023-04-17] MEDS ORDERED: LIDOCAINE HCL 2% 100 MG/5 ML IJ ONE (10:19)
[2023-04-17] MEDS ORDERED: DIPRIVAN 200 MG/20 ML IV ONE (13:17)
[2023-04-17] MEDS ORDERED: Lactated Ringers 1,000 ML IV SCH (13:30)
--- NOTE | 2023-04-17 15:06 | XRAY ---
Indication: Right C3-C5 MBB. Intraoperative fluoroscopy provided for 29 seconds. 2 digital spot images submitted for interpretation demonstrates posterior needle tips projecting over the expected right C3-C5 nerve roots. Correlate with intraoperative findings/report.
[2023-04-17] MEDS ORDERED: Lactated Ringers 2,000 ML IV ONE (16:49)
--- NOTE | 2023-04-17 16:57 | XRAY ---
29 seconds of fluoroscopy was used in surgery for a C3-C5 MBB.
== END 2023-04-17 13:45 | disposition home or self-care (01) ==
LOC: SDC-PAIN 10:18
PROVIDERS: ATTEND Psychiatry & Neurology Pain Medicine
DX: M47.812 Spondylosis without myelopathy or radiculopathy, cervical region (principal)
CPT/HCPCS: 64490; 64491; 72040; 77002; J2704

== ENCOUNTER 2023-05-08 13:27 | Day surgery (SDC) | payer OTHER ==
[2023-05-08] MEDS ORDERED: BUPIVACAINE 0.5% VIAL IJ ONE (13:28)
[2023-05-08] MEDS ORDERED: DIPRIVAN 200 MG/20 ML IV ONE (16:52)
[2023-05-08] MEDS ORDERED: Lactated Ringers 1,000 ML IV ONE (17:07)
--- NOTE | 2023-05-08 20:18 | XRAY ---
Indication: Right C3-C5 MBB Intraoperative fluoroscopy provided for 36 seconds. 4 digital spot image submitted for interpretation demonstrates posterior needle tips projecting over the expected right C3-C5 nerve roots. Correlate with intraoperative findings/report.
--- NOTE | 2023-05-09 09:37 | XRAY ---
36 seconds of fluoroscopy was used in surgery for a right C3-C5 MBB.
== END 2023-05-08 17:25 | disposition home or self-care (01) ==
LOC: SDC-PAIN 13:27
PROVIDERS: ATTEND Psychiatry & Neurology Pain Medicine
DX: M47.812 Spondylosis without myelopathy or radiculopathy, cervical region (principal)
CPT/HCPCS: 64490; 64491; 72040; 77002; J2704

== ENCOUNTER 2023-05-09 09:45 | Observation (INO) | payer OTHER ==
[2023-05-09] MEDS ORDERED: Sodium Chloride 0.9% 1000 ML 1,000 ML ONE (09:56)
[2023-05-09] MEDS ORDERED: Sodium Chloride 0.9% 1000 ML 1,000 ML IV STA (10:02)
--- NOTE | 2023-05-09 10:02 | ERPHSYRPT ---
- History of Present Illness Time Seen by Provider: 05/09/23 09:54 Source: patient Exam Limitations: no limitations Physician History: The patient has had multiple ER visits. The patient is a 57-year-old who presents to the emergency room with complaints of hypotension from the doctor's office. She had a syncopal episode last night. This was not witnessed. The pa kelly denies any pain. She has chronic neck pain. She did get a injection yesterday at the pain clinic. This was done at the hospital. The patient denies any nausea vomiting or diarrhea. Denies any chest pain or abdominal pain. The patient was in the doctor's office. They found her to be hypo tensive. She does states she gets lightheaded Witnessed: unwitnessed Charcter of event(s): collapsed, felt faint Allergies/Adverse Reactions: paroxetine [From Paxil] Adverse Reaction (Verified 05/09/23 09:50) tramadol Adverse Reaction (Verified 05/09/23 09:50) Vomiting Home Medications: Nitroglycerin 0.4 mg Tablet [Nitrostat 0.4 MG Tablet] 0.4 mg SL UD 01/08/20 [History] Omeprazole 20 mg PO DAILY 01/08/20 [History] Albuterol Sulfate [Albuterol Sulfate Hfa] 18 gm IH QID 09/28/22 [History] Alendronate Sodium 10 mg PO DAILY 09/28/22 [History] Calcium/D3/Mag Oxide/C/K2/Min [Boneup 3 Per Day Capsule] 1 each PO DAILY 09/28/22 [History] Famotidine 40 mg PO DAILY 09/28/22 [History] Fluticasone/Umeclidin/Vilanter [Trelegy Ellipta 200-62.5-25] 1 puff DAILY 09/28/22 [History] Lisinopril/Hydrochlorothiazide [Lisinopril-Hctz 20-25 mg Tab] 1 ea DAILY 09/28/22 [History] Metoprolol Succinate 50 mg [Toprol Xl 50 MG] 50 mg PO BID 09/28/22 [History] Simvastatin 10 mg [Zocor 10MG] 10 mg PO DAILY 09/28/22 [History] Quetiapine Fumarate 100 mg [Seroquel 100 MG] 100 mg PO DAILY 12/05/22 [History] Hx Tetanus, Diphtheria Vaccination/Date Given: Yes Hx Influenza Vaccination/Date Given: No Hx Pneumococcal Vaccination/Date Given: No Travel Risk - Vaccine Status Have you recieved a Covid-19 vaccination: Yes Finish Filer: Unknown - Vaccination Dates Date of 2cond Vaccination (if applicable): 2020 Dates if Unknown: ? - Past Medical History Pertinent Past Medical History: Yes Neurological History: Other ENT History: No Pertinent History Cardiac History: High Cholesterol, Hypertension Respiratory History: COPD Endocrine Medical History: No Pertinent History Musculoskeletal History: Fractures, Osteoarthritis GI Medical History: GERD History: No Pertinent History Psycho-Social History: Anxiety, Depression Female Reproductive Disorders: No Pertinent History Other Medical History: RADIATING PAIN INTO THE RIGHT WRIST. - Past Surgical History Past Surgical History: Yes Neuro Surgical History: No Pertinent History Cardiac: No Pertinent History Respiratory: No Pertinent History Gastrointestinal: No Pertinent History Genitourinary: No Pertinent History Musculoskeletal: Other Female Surgical History: Tubal Ligation Other Surgical History: HEEL SPUR, back ablasion - Social History Smoking Status: Never smoker Exposure to second hand smoke: Yes Drug Use: none Patient Lives Alone: No - Review of Systems Constitutional: No Fever, No Chills Eyes: No Symptoms Ears, Nose, & Throat: No Symptoms Respiratory: No Cough, No Dyspnea Cardiac: No Chest Pain, No Edema, No Syncope Abdominal/Gastrointestinal: No Abdominal Pain, No Nausea, No Vomiting, No Diarrhea Genitourinary Symptoms: No Dysuria Musculoskeletal: No Back Pain, No Neck Pain Skin: No Rash Neurological: No Dizziness, No Focal Weakness, No Sensory Changes Psychological: No Symptoms Endocrine: No Symptoms All Other Systems: Reviewed and Negative Physical Exam - Nursing Vital Signs Nursing Vital Signs: Initial Vital Signs Temperature 97.3 F 05/09/23 09:54 Pulse Rate 118 H 05/09/23 09:54 Respiratory Rate 18 05/09/23 09:54 Blood Pressure 79/57 05/09/23 09:54 O2 Sat by Pulse Oximetry 98 05/09/23 09:54 Pain Scale Pain Intensity 3 - Anson Coma Scale Best Eye Response (Boni): (4) open spontaneously Best Verbal Response (Boni): (5) oriented Best Motor Response (Boni): (6) obeys commands Boni Total: 15 - Physical Exam General Appearance: no apparent distress, alert Eye Exam: bilateral eye: PERRL, EOMI Ears, Nose, Throat Exam: normal ENT inspection, pharynx normal, moist mucous membranes Neck Exam: normal inspection, non-tender, supple, full range of motion Respiratory: normal breath sounds, lungs clear, No chest tenderness, No respirat ory distress Cardiovascular: regular rate/rhythm, capillary refill <2 sec, No murmur, No pulse deficit Gastrointestinal: soft, No tenderness, No distention, No mass Back Exam: normal inspection, normal range of motion, No CVA tenderness, No vertebral tenderness Extremity Exam: normal inspection, normal range of motion, pelvis stable, No tenderness Mental Status: alert, oriented x 3, 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 Exam: normal speech, PERRL, No facial droop Coordination/Gait: normal finger to nose Motor/Sensory: no motor deficit, no sensory deficit, no pronator drift Skin Exam: normal color, warm, dry, No rash - Course Nursing assessment & vital signs reviewed: Yes EKG Interpreted by Me: Sinus Tach Ordered Tests: Active Orders 24 hr Category Date Time Status Prefabricator STAT Care 05/09/23 10:03 Active EKG-ER Only STAT Care 05/09/23 10:02 Active IV Insertion STAT Care 05/09/23 10:02 Active CERVICAL SPINE WO CONTRAST [CT] Stat Exams 05/09/23 10:08 Completed CHEST 1 VIEW (PORTABLE) Stat Exams 05/09/23 10:03 Completed HEAD WITHOUT CONTRAST [CT] Stat Exams 05/09/23 10:08 Completed CBC W DIFF Stat Lab 05/09/23 10:02 Completed CMP Stat Lab 05/09/23 10:00 Completed TROPONIN Q4H Lab 05/09/23 10:00 Completed TROPONIN Q4H Lab 05/09/23 14:15 Ordered TROPONIN Q4H Lab 05/09/23 18:15 Ordered Transfer Order Routine Transfer 05/09/23 Ordered Medication Summary Generic Name Dose Route Start Last Admin Trade Name Freq PRN Reason Stop Dose Admin Sodium Chloride 1,000 mls @ 999 mls/hr 05/09/23 11:30 05/09/23 11:30 Sodium Chloride 0.9% 1000 Ml IV 06/08/23 11:29 999 mls/hr .Q1H1M JANEEN Administration Discontinued Medications Generic Name Dose Route Start Last Admin Trade Name Freq PRN Reason Stop Dose Admin Sodium Chloride Confirm 05/09/23 09:56 Sodium Chloride 0.9% 1000 Ml Administered 05/09/23 09:57 Dose 1,000 mls @ ud .ROUTE .STK-MED ONE Sodium Chloride 1,000 mls @ 999 mls/hr 05/09/23 10:02 05/09/23 11:27 Sodium Chloride 0.9% 1000 Ml IV 05/09/23 11:02 Infused .Q1H1M STA Infusion Lab/Rad Data: Laboratory Result Diagrams 05/09/23 10:02 05/09/23 10:00 Laboratory Results 05/09/23 05/09/23 05/09/23 Range/Units 10:02 10:00 10:00 WBC 10.1 (4.0-10.5) x10^3/uL RBC 3.50 L (4.1-5.4) x10^6/uL Hgb 10.0 L (12.0-16.0) g/dL Hct 32.3 L (35-47) % MCV 92.3 (78-100) fL MCH 28.6 (26-32) pg MCHC 31.0 L (32-36) g/dL RDW 13.2 (11.5-14.0) % Plt Count 334 (150-450) x10^3/uL MPV 9.8 (7.5-11.0) fL Gran % 84.1 H (36.0-66.0) % Immature Gran % (Auto) 0.3 (0.00-0.4) % Nucleat RBC Rel Count 0.0 (0.00-0.1) % Eos # (Auto) 0.01 (0-0.5) x10^3/uL Immature Gran # (Auto) 0.03 (0.00-0.03) x10^3u/L Absolute Lymphs (auto) 0.88 L (1.0-4.6) x10^3/uL Absolute Monos (auto) 0.66 (0.0-1.3) x10^3/uL Absolute Nucleated RBC 0.00 (0.00-0.01) x10^3u/L Lymphocytes % 8.7 L (24.0-44.0) % Monocytes % 6.5 (0.0-12.0) % Eosinophils % 0.1 (0.00-5.0) % Basophils % 0.3 (0.0-0.4) % Absolute Granulocytes 8.52 H (1.4-6.9) x10^3/uL Basophils # 0.03 (0-0.4) x10^3/uL Sodium 136 L (137-145) mmol/L Potassium 4.0 (3.5-5.1) mmol/L Chloride 107 (98-107) mmol/L Carbon Dioxide 20 L (22-30) mmol/L Anion Gap 13.3 (5-15) MEQ/L BUN 48 H (7-17) mg/dL Creatinine 3.28 H (0.52-1.04) mg/dL Estimated GFR 15.8 ML/MIN Glucose 152 H (74-106) mg/dL Calcium 9.1 (8.4-10.2) mg/dL Total Bilirubin 0.40 (0.2-1.3) mg/dL AST 21 (14-36) U/L ALT 15 (0-35) U/L Alkaline Phosphatase 113 (38-126) U/L Troponin I < 0.012 (0.000-0.034) ng/mL Serum Total Protein 6.8 (6.3-8.2) g/dL Albumin 3.9 (3.5-5.0) g/dL Procedures: [id number] CT/HEAD WITHOUT CONTRAST Indication: Pain following fall one day earlier. Multiple contiguous axial images obtained through the head without contrast. Comparison: November 27, 2022 Normal appearing brain parenchyma, ventricles, and bony calvarium. Visualized paranasal sinuses and mastoid air cells are clear. Impression: Continued normal CT head without contrast exam. Reported by: FRACISCO ALANIS DO Signed by: FRACISCO ALANIS DO Procedures: [id number] CT/CERVICAL SPINE WO CONTRAST Indication: Pain following fall one day earlier. Multiple contiguous axial images obtained through the cervical spine. Sagittal and coronal reformatted images obtained. Comparison: June 20, 2022 Axial images again negative for acute fracture, suspicious bony lesions, or spinal canal stenosis.. There remains mild/moderate C4-C7 degenerative endplate spurring, moderate atlantoaxial degenerative arthropathy, and moderate multilevel bilateral degenerative facet hypertrophy. Sagittal and coronal reformatted images again demonstrate lordotic reversal, positional versus paraspinal spasm. Stable 2 mm C4 anterolisthesis on C5. Stable C5-C7 disc space narrowing. No new compression fracture, subluxation, or jumped facet. Normal appearing craniocervical junction. Stable moderate right TMJ degenerative changes. Visualized noncontrasted soft tissues again demonstrates left apical pleural parenchymal fibrosis/scarring. Impression: 1. Continued negative acute fracture. 2. Again chronic findings including cervical lordotic reversal, multilevel degenerative spondylosis, grade 1 C4 listhesis, right TMJ degenerative changes, and left lung pleural parenchymal fibrosis/scarring. Reported by: FRACISCO ALANIS DO Signed by: FRACISCO ALANIS DO Signed date/time: 05/09/23 1039 Signed date/time: 05/09/23 1035 Copies to: GERONIMO MARTINEZ CHAD Procedures: [id number] RAD/CHEST 1 VIEW (PORTABLE) Indication: Pain following fall. Comparison: December 05, 2022 Portable chest again demonstrates left lung base infiltrate versus atelectasis and left upper lung fibrosis/scarring. Remaining heart and right lung unremarkable. Bony thorax intact again with osteopenia, degenerative changes, scoliosis, and old right 4 rib fracture. Reported by: FRACISCO ALANIS DO Signed by: FRACISCO ALANIS DO Signed date/time: 05/09/23 1041 Copies to: GERONIMO MARTINEZ CHAD - Progress Progress: improved Progress Note: 05/09/23 10:01 The patient presents with syncope. The patient is hypotensive. The patient denies any obvious signs of volume loss or bleeding. No history of GI bleeding. No history of diarrhea or vomiting. The patient denies any chest pain. The patient had a syncopal episode with a fall last night. The patient will be scanned head and C-spine. The patient will get basic blood work and EKG EKG was obtained showed Sinus tachycardia rate of 119 otherwise normal rhythm [place] no acute ST wave changes 05/09/23 12:28 The patient was found to have acute renal injury/failure. Creatinine at 3.28. She has had worse creatinines before but she is also had normal creatinines most recently. The patient at this point will be admitted. Her blood pressure after a second liter of fluid is for systolics greater than 100. The patient was convinced to be admitted observation. Once again she had syncope. Her CTs were unremarkable of her head and C-spine. No evidence of acute coronary syndrome. She her tachycardia is resolving. Her troponin is normal. Medical Desision Making - External Record(s) Reviewed Records reviewed as a part of evaluation & management: Inpatient - Discussion of managment Care discussed with:: hospitalist Reviewed:: Test results, Need for additional workup Agreed on:: Treatment plan, place in obs Will see patient: in hospital - Departure Departure Disposition: Observation Clinical Impression: Acute renal failure, JUAN (acute kidney injury), Dehydration, Hypotension Condition: Fair Critical Care Time: No Referrals: GERONIMO MARTINEZ MD [Primary Care Provider] - Follow up/PCP as directed
[2023-05-09 10:22] LABS: Absolute Neutrophil Ct (ANC) 8.52 x10^3/uL (1.4-6.9); BASOPHIL % 0.3 % (0.0-0.4); Basophil (Absolute #) 0.03 x10^3/uL (0-0.4); Eosinophil % 0.1 % (0.00-5.0); Eosinophil (Absolute #) 0.01 x10^3/uL (0-0.5); Hematocrit 32.3 % (35-47); IMMATURE GRAN # 0.03 x10^3u/L (0.00-0.03); IMMATURE GRAN % 0.3 % (0.00-0.4); Lymphocyte (Absolute #) 0.88 x10^3/uL (1.0-4.6); Lymphocytes % 8.7 % (24.0-44.0); Mean Cell Volume 92.3 fL (78-100); Mean Corpuscular Hemoglobin 28.6 pg (26-32); Mean Platelet Volume 9.8 fL (7.5-11.0); Monocyte (Absolute #) 0.66 x10^3/uL (0.0-1.3); Monocytes % 6.5 % (0.0-12.0); Neutrophil % 84.1 % (36.0-66.0); Platelet Count 334 x10^3/uL (150-450); Red Cell Distribution Width 13.2 % (11.5-14.0); White Blood Count 10.1 x10^3/uL (4.0-10.5)
[2023-05-09 10:35] LABS: ALBUMIN 3.9 g/dL (3.5-5.0); ANION GAP 13.3 MEQ/L (5-15); BILIRUBIN,TOTAL 0.4 mg/dL (0.2-1.3); Calcium 9.1 mg/dL (8.4-10.2); Creatinine 1 3.28 mg/dL (0.52-1.04); EST GLOMERULAR FILTRATION RATE 15.8 ML/MIN; Total Protein 6.8 g/dL (6.3-8.2)
--- NOTE | 2023-05-09 10:35 | XRAY ---
Indication: Pain following fall one day earlier. Multiple contiguous axial images obtained through the head without contrast. Comparison: November 27, 2022 Normal appearing brain parenchyma, ventricles, and bony calvarium. Visualized paranasal sinuses and mastoid air cells are clear. Impression: Continued normal CT head without contrast exam.
--- NOTE | 2023-05-09 10:39 | XRAY ---
Indication: Pain following fall one day earlier. Multiple contiguous axial images obtained through the cervical spine. Sagittal and coronal reformatted images obtained. Comparison: June 20, 2022 Axial images again negative for acute fracture, suspicious bony lesions, or spinal canal stenosis.. There remains mild/moderate C4-C7 degenerative endplate spurring, moderate atlantoaxial degenerative arthropathy, and moderate multilevel bilateral degenerative facet hypertrophy. Sagittal and coronal reformatted images again demonstrate lordotic reversal, positional versus paraspinal spasm. Stable 2 mm C4 anterolisthesis on C5. Stable C5-C7 disc space narrowing. No new compression fracture, subluxation, or jumped facet. Normal appearing craniocervical junction. Stable moderate right TMJ degenerative changes. Visualized noncontrasted soft tissues again demonstrates left apical pleural parenchymal fibrosis/scarring. Impression: 1. Continued negative acute fracture. 2. Again chronic findings including cervical lordotic reversal, multilevel degenerative spondylosis, grade 1 C4 listhesis, right TMJ degenerative changes, and left lung pleural parenchymal fibrosis/scarring.
--- NOTE | 2023-05-09 10:41 | XRAY ---
Indication: Pain following fall. Comparison: December 05, 2022 Portable chest again demonstrates left lung base infiltrate versus atelectasis and left upper lung fibrosis/scarring. Remaining heart and right lung unremarkable. Bony thorax intact again with osteopenia, degenerative changes, scoliosis, and old right 4 rib fracture.
[2023-05-09] MEDS: Sodium Chloride 0.9% 1000 ML 1,000 ML IV SCH ×4 (11:30→14:10)
[2023-05-09] MEDS ORDERED: Zofran 4 MG/2 ML VIAL IV PRN (12:37)
[2023-05-09] MEDS ORDERED: TYLENOL 325 MG PO PRN (12:37)
--- NOTE | 2023-05-09 12:37 | PCM.HP ---
History of Present Illness - Chief Complaint Chief Complaint: acute renal injury, syncope, dehydration Date: 05/09/23 History of Present Illness: Saturday is a 57 year old female with a pmhx of HLD, HTN, GERD, anxiety, chronic neck pain (OP pain managment/injection yesterday)and OA who presented to ED 05/09/23 under the advisement of her PCP for hypotension. Patient states she had a syncopal episode last evening (unwitnessed). States she was going to the bathroom and felt dizzy and passed out, recovered within five minutes. She reports having multiple episodes similar to this. In ED patient was afebrile, tachycardic, and hypotensive with BP at 79/57. CT head with no acute findings. CT spine with no acute findings. CXR demonstrates left lung base infiltrate versus atelectasis and left upper lung fibrosis/scarring. EKG with ST HR [address] elevations/deviatons. Lab findings remarkable for hgb at 10, mild hyponatremia at 136, JUAN with creat at 3.28 (baseline around 1.1-1.7), BUN 48. Patient given 1L fluid bolus. - Review of Systems Constitutional: No Symptoms Eyes: No Symptoms Ears, Nose, & Throat: No Symptoms Respiratory: No Symptoms Cardiac: No Symptoms Abdominal/Gastrointestinal: No Symptoms Genitourinary Symptoms: No Symptoms Musculoskeletal: No Symptoms Skin: No Symptoms Neurological: Dizziness Psychological: No Symptoms Endocrine: No Symptoms Hematologic/Lymphatic: No Symptoms Immunological/Allergic: No Symptoms Medications & Allergies Home Medications: Home Medication List Omeprazole 20 mg PO DAILY 01/08/20 [History Confirmed 05/09/23] Albuterol Sulfate [Albuterol Sulfate Hfa] 18 gm IH QID 09/28/22 [History Confirmed 05/09/23] Alendronate Sodium 10 mg PO WEEKLY 09/28/22 [History Confirmed 05/09/23] Calcium/D3/Mag Oxide/C/K2/Min [Boneup 3 Per Day Capsule] 1 each PO DAILY 09/28/22 [History Confirmed 05/09/23] Famotidine 40 mg PO DAILY 09/28/22 [History Confirmed 05/09/23] Fluticasone/Umeclidin/Vilanter [Trelegy Ellipta 200-62.5-25] 1 puff IH DAILY 09/28/22 [History Confirmed 05/09/23] Lisinopril/Hydrochlorothiazide [Lisinopril-Hctz 20-25 mg Tab] 1 ea DAILY 09/28/22 [History Confirmed 05/09/23] Simvastatin 10 mg [Zocor 10MG] 10 mg PO DAILY 09/28/22 [History Confirmed 05/09/23] Quetiapine Fumarate 100 mg [Seroquel 100 MG] 100 mg PO DAILY 12/05/22 [History Confirmed 05/09/23] Metoprolol Tartrate 50 mg [Lopressor 50 MG] 50 mg PO BID 05/09/23 [History Confirmed 05/09/23] Quetiapine Fumarate [Seroquel] 400 mg PO HS 05/09/23 [History Confirmed 05/09/23] Vilazodone HCl 20 mg PO HS 05/09/23 [History Confirmed 05/09/23] Allergies/Adverse Reactions: Allergies Allergy/AdvReac Type Severity Reaction Status Date / Time paroxetine [From Paxil] AdvReac Verified 05/09/23 09:50 tramadol AdvReac Vomiting Verified 05/09/23 09:50 - Past Medical History Past Medical History: Yes Neurological History: Other ENT History: No Pertinent History Cardiac History: High Cholesterol, Hypertension Respiratory History: COPD Endocrine Medical History: No Pertinent History Musculoskelatal History: Fractures, Osteoarthritis GI Medical History: GERD History: No Pertinent History Pyscho-Social History: Anxiety, Depression Reproductive Disorders: No Pertinent History Comment: RADIATING PAIN INTO THE RIGHT WRIST. - Past Surgical History Past Surgical History: Yes Neuro Surgical History: No Pertinent History Cardiac History: No Pertinent History Respiratory Surgery: No Pertinent History GI Surgical History: No Pertinent History Genitourinary Surgical Hx: No Pertinent History Musculskeletal Surgical Hx: Other Female Surgical History: Tubal Ligation Other Surgical History: HEEL SPUR, back ablasion - Social History Smoking Status: Never smoker Exposure to second hand smoke: Yes Alcohol: None Drug Use: none - Physical Exam Vital Signs: Vital Signs - 24 hr Temp Pulse Resp BP BP Pulse Ox 05/09/23 12:25 107/76 05/09/23 12:20 93 H 21 99/64 99 05/09/23 12:15 96 H 17 106/55 99 05/09/23 12:10 93 H 21 112/57 99 05/09/23 12:05 87 17 102/74 99 05/09/23 12:00 87 14 90/65 98 05/09/23 11:55 87 17 103/63 98 05/09/23 11:50 86 16 100/60 98 05/09/23 11:46 92 H 21 97/53 97 05/09/23 11:40 100 H 21 89/66 98 05/09/23 11:35 90 20 88/60 100 05/09/23 11:30 92 H 12 107/57 99 05/09/23 11:25 94 H 15 85/58 98 05/09/23 11:21 96 H 16 86/67 99 05/09/23 11:15 97 H 24 100/59 98 05/09/23 11:10 95 H 21 89/63 97 05/09/23 11:05 93 H 13 88/63 98 05/09/23 11:00 98 H 20 95/46 97 05/09/23 10:56 99 H 18 88/64 96 05/09/23 10:50 107 H 21 88/59 98 05/09/23 10:45 100 H 17 90/52 99 05/09/23 10:44 107 H 15 83/61 99 05/09/23 10:10 105 H 20 83/59 99 05/09/23 09:54 97.3 F 118 H 18 79/57 98 General Appearance: no apparent distress Neurologic Exam: alert, oriented x 3, cooperative, advocacy director II-XII nml as tested, normal mood/affect Eye Exam: PERRL/EOMI Ears, Nose, Throat Exam: normal ENT inspection Neck Exam: normal inspection Respiratory Exam: normal breath sounds, lungs clear Cardiovascular Exam: regular rate/rhythm, normal heart sounds Gastrointestinal/Abdomen Exam: soft, normal bowel sounds Pelvic Exam: not done Rectal Exam: deferred Back Exam: normal inspection Extremity Exam: normal inspection Skin Exam: normal color Results - Labs Lab/Micro Results: Lab Results-Last 24 Hours 05/09/23 05/09/23 05/09/23 Range/Units 10:00 10:00 10:02 WBC 10.1 (4.0-10.5) x10^3/uL RBC 3.50 L (4.1-5.4) x10^6/uL Hgb 10.0 L (12.0-16.0) g/dL Hct 32.3 L (35-47) % MCV 92.3 (78-100) fL MCH 28.6 (26-32) pg MCHC 31.0 L (32-36) g/dL RDW 13.2 (11.5-14.0) % Plt Count 334 (150-450) x10^3/uL MPV 9.8 (7.5-11.0) fL Gran % 84.1 H (36.0-66.0) % Immature Gran % (Auto) 0.3 (0.00-0.4) % Nucleat RBC Rel Count 0.0 (0.00-0.1) % Eos # (Auto) 0.01 (0-0.5) x10^3/uL Immature Gran # (Auto) 0.03 (0.00-0.03) x10^3u/L Absolute Lymphs (auto) 0.88 L (1.0-4.6) x10^3/uL Absolute Monos (auto) 0.66 (0.0-1.3) x10^3/uL Absolute Nucleated RBC 0.00 (0.00-0.01) x10^3u/L Lymphocytes % 8.7 L (24.0-44.0) % Monocytes % 6.5 (0.0-12.0) % Eosinophils % 0.1 (0.00-5.0) % Basophils % 0.3 (0.0-0.4) % Absolute Granulocytes 8.52 H (1.4-6.9) x10^3/uL Basophils # 0.03 (0-0.4) x10^3/uL Sodium 136 L (137-145) mmol/L Potassium 4.0 (3.5-5.1) mmol/L Chloride 107 (98-107) mmol/L Carbon Dioxide 20 L (22-30) mmol/L Anion Gap 13.3 (5-15) MEQ/L BUN 48 H (7-17) mg/dL Creatinine 3.28 H (0.52-1.04) mg/dL Estimated GFR 15.8 ML/MIN Glucose 152 H (74-106) mg/dL Calcium 9.1 (8.4-10.2) mg/dL Total Bilirubin 0.40 (0.2-1.3) mg/dL AST 21 (14-36) U/L ALT 15 (0-35) U/L Alkaline Phosphatase 113 (38-126) U/L Troponin I < 0.012 (0.000-0.034) ng/mL Serum Total Protein 6.8 (6.3-8.2) g/dL Albumin 3.9 (3.5-5.0) g/dL - Radiology Impressions Radiology Exams & Impressions: Radiology Procedures Category Date Time Status CERVICAL SPINE WO CONTRAST [CT] Stat Exams 05/09/23 10:08 Completed CHEST 1 VIEW (PORTABLE) Stat Exams 05/09/23 10:03 Completed HEAD WITHOUT CONTRAST [CT] Stat Exams 05/09/23 10:08 Completed Assessment/Plan (1) JUAN (acute kidney injury) Current Visit: Yes Status: Acute Assessment & Plan: -Hold lisinopril/HCTZ/BB -Urine sodium/creat -Strict I&O -baseline at 1.1-1.7 -IVF, monitor for fluid overload -renal US -Monitor renal/lytes daily -Avoid nephrotoxic agents, renal dose medications Code(s): N17.9 - ACUTE KIDNEY FAILURE, UNSPECIFIED (2) Anemia Current Visit: Yes Status: Acute Assessment & Plan: -Hgb at 10, which is near baseline, will add iron studies, b12/fol, ferritin Code(s): D64.9 - ANEMIA, UNSPECIFIED (3) Left pulmonary infiltrate on CXR Current Visit: Yes Status: Acute Assessment & Plan: -CXR showing left lung base infiltrate versus atelectasis and left upper lung fibrosis/scarring -No recent sick contacts -No shortness of breath/cough -RA -IS Code(s): R91.8 - OTHER NONSPECIFIC ABNORMAL FINDING OF LUNG FIELD (4) Episode of syncope Current Visit: Yes Status: Acute Assessment & Plan: Syncopal episode -Unwitnessed -CT head with negative findings -Most likely seconday to hypotension -EKG with ST, unremarkable otherwise, repeat in a.m., trops negative so far -Echo -Med review for offending agents- hold BB -Check orthostatic vitals -PT/OT -UDS -Tele -Urinalysis Code(s): R55 - SYNCOPE AND COLLAPSE (5) Hypotension Current Visit: Yes Status: Acute Assessment & Plan: -May be secondary to BB/HCTZ, hold -orthostatic vitals Code(s): I95.9 - HYPOTENSION, UNSPECIFIED (6) COPD (chronic obstructive pulmonary disease) Current Visit: Yes Status: Acute Assessment & Plan: - Does not appear to be in exacerbation -On RA which is her baseline -Supplemental oxygen with spo2 goal > 92% -RT consult -Nebs/INH prn
[2023-05-09] MEDS ORDERED: Rocephin 1000 MG INJ** 1,000 MG in Sodium Chloride 100ML MINI-BAG PLUS 100 ML IV SCH (13:00)
[2023-05-09] MEDS ORDERED: VENTOLIN COMMON CANISTER IH PRN (14:02)
--- NOTE | 2023-05-09 14:09 | XRAY ---
Indication: Acute kidney injury. Two-dimensional renal sonogram performed. Comparison: None Both kidneys are normal in reniform shape with normal color perfusion. Right kidney measures 9.6 x 6.1 x 5.6 cm and left measures 9.3 x 6.4 x 7.0 cm. No focal solid/cystic renal mass or hydronephrosis. Cortical medullary differentiation preserved. Mildly distended urinary bladder grossly unremarkable. Ureteral jets not seen within the allotted exam time. Prevoid volume is 337 cc. Postvoid is 9 cc. Impression: Urinary bladder tiny postvoid residual. Remainder renal sonogram is negative.
[2023-05-09 14:12] LABS: RETICULOCYTE HEMOGLOBIN 30.5 pg (28-38)
[2023-05-09] MEDS: NORCO 5/325 MG PO PRN ×2 (14:13→23:19)
[2023-05-09] MEDS ORDERED: MEDICATION INTERVENTION MC SCH ×2 (14:30)
[2023-05-09 15:48] LABS: Folate (Folic Acid) 10.7 ng/mL (2.76 - >20)
[2023-05-09 16:35] LABS: Iron 30 ug/dL (37-170); Iron Saturation 14 % (20-39); TIBC 211 ug/dL (265-462)
[2023-05-09] MEDS ORDERED: Zocor 10MG PO SCH ×2 (17:00→22:00)
[2023-05-09 18:48] LABS: Appearance Clear (Clear); Bacteria None Seen /HPF (None Seen); Bilirubin Negative (Negative); Blood Negative (Negative); Epithelial Cells None Seen /HPF (None Seen); Glucose, Urine Negative (Negative); Hyaline Casts NONE SEEN /LPF (0-2); Ketones Negative (Negative); Leukocyte Esterase Trace (Negative); Nitrite Negative (Negative); Ph 5.5 (4.6-8.0); Protein,Urine Dip Negative (Negative); RBC 0-2 /HPF (0-5); Urobilinogen 0.2 mg/dL (0.2); WBC 0-2 /HPF (0-5)
[2023-05-09 18:51] LABS: ADD URINE CULTURE? NO (NO)
[2023-05-09 20:32] LABS: Amphetamine,Urine POSITIVE (NEGATIVE); Barbiturate,Urine NEGATIVE (NEGATIVE); Benzodiazepine,Urine NEGATIVE (NEGATIVE); CREATININE,URINE RANDOM 57.7 MG/DL; Cocaine,Urine NEGATIVE (NEGATIVE); Methadone,Urine NEGATIVE (NEGATIVE); Opiate,Urine POSITIVE (NEGATIVE); PCP,Urine NEGATIVE (NEGATIVE); Sodium, Urine 70 mmol/L (30-90); THC,Urine NEGATIVE (NEGATIVE)
[2023-05-09] MEDS ORDERED: ATARAX 25 MG PO PRN (20:44)
[2023-05-09] MEDS ORDERED: NON-FORMULARY ITEM (Vilazodone Hcl [Vilazodone Hcl] 20 MG Tablet) PO SCH (22:00)
[2023-05-09] MEDS ORDERED: REQUIP 2MG TAB PO SCH (22:00)
[2023-05-10] MEDS: Sodium Chloride 0.9% 1000 ML 1,000 ML IV SCH ×2 (00:31→09:26)
[2023-05-10 04:47] LABS: BASOPHIL % 0.4 % (0.0-0.4); Basophil (Absolute #) 0.02 x10^3/uL (0-0.4); Eosinophil % 1.6 % (0.00-5.0); Eosinophil (Absolute #) 0.08 x10^3/uL (0-0.5); Hematocrit 26.5 % (35-47); Hemoglobin 8.2 g/dL (12.0-16.0); IMMATURE GRAN # 0.01 x10^3u/L (0.00-0.03); IMMATURE GRAN % 0.2 % (0.00-0.4); Lymphocyte (Absolute #) 1.53 x10^3/uL (1.0-4.6); Lymphocytes % 29.7 % (24.0-44.0); Mean Corpuscular Hemoglobin 28.5 pg (26-32); Mean Corpuscular Hgb Concent. 30.9 g/dL (32-36); Monocyte (Absolute #) 0.32 x10^3/uL (0.0-1.3); Monocytes % 6.2 % (0.0-12.0); Neutrophil % 61.9 % (36.0-66.0); Platelet Count 254 x10^3/uL (150-450); Red Blood Count 2.88 x10^6/uL (4.1-5.4); Red Cell Distribution Width 13.3 % (11.5-14.0); White Blood Count 5.2 x10^3/uL (4.0-10.5)
[2023-05-10 05:00] LABS: ALBUMIN 3.1 g/dL (3.5-5.0); ANION GAP 9.2 MEQ/L (5-15); BILIRUBIN,TOTAL 0.3 mg/dL (0.2-1.3); Calcium 8.3 mg/dL (8.4-10.2); Creatinine 1 1.95 mg/dL (0.52-1.04); EST GLOMERULAR FILTRATION RATE 29.5 ML/MIN; Potassium 3.6 mmol/L (3.5-5.1); Total Protein 5.8 g/dL (6.3-8.2)
--- NOTE | 2023-05-10 05:09 | PCM.NOTE ---
Date and Time: 05/10/23 0506 Subjective Assessment: Saturday is a 57 year old female with a pmhx of HLD, HTN, GERD, anxiety, chronic neck pain (OP pain managment/injection yesterday)and OA who presented to ED 05/09/23 under the advisement of her PCP for hypotension. Patient states she had a syncopal episode last evening (unwitnessed). States she was going to the bathroom and felt dizzy and passed out, recovered within five minutes. She reports having multiple episodes similar to this. In ED patient was afebrile, tachycardic, and hypotensive with BP at 79/57. CT head with no acute findings. CT spine with no acute findings. CXR demonstrates left lung base infiltrate versus atelectasis and left upper lung fibrosis/scarring. EKG with ST HR [address] elevations/deviatons. Lab findings remarkable for hgb at 10, mild hyponatremia at 136, JUAN with creat at 3.28 (baseline around 1.1-1.7), BUN 48. Patient given 1L fluid bolus. Patient admitted with syncopal episode and JUAN. 05/10/23: Met with patient bedside. No further episodes of dizziness. Orthostatic vitals negative. Blood pressure stabilized. Kidney function is improving. Of note UDS positive for amphetamines. Patient denies illicit drug use. Denies fever,cough, sob, cp, abdominal pain, COBOS, dizziness, N/V/D. Plan for continued hydration, possible dc tomorrow. - Review of Systems Constitutional: No Symptoms Eyes: No Symptoms Ears, Nose, & Throat: No Symptoms Respiratory: No Symptoms Cardiac: No Symptoms Abdominal/Gastrointestinal: No Symptoms Genitourinary Symptoms: No Symptoms Musculoskeletal: No Symptoms Skin: No Symptoms Neurological: No Symptoms Psychological: No Symptoms Endocrine: No Symptoms Hematologic/Lymphatic: No Symptoms Immunological/Allergic: No Symptoms Objective Exam General Appearance: no apparent distress Neurologic Exam: alert, oriented x 3, cooperative Skin Exam: normal color Eye Exam: PERRL Ears, Nose, Throat Exam: normal ENT inspection Neck Exam: normal inspection Respiratory Exam: normal breath sounds, lungs clear Cardiovascular Exam: regular rate/rhythm, normal heart sounds Gastrointestinal/Abdomen Exam: soft, normal bowel sounds Extremity Exam: normal inspection Back Exam: normal inspection Pelvic Exam: deferred Rectal Exam: deferred OBJECTIVE DATA Vital Signs: Vital Signs - 24 hr Temp Pulse Resp BP BP Pulse Ox 05/10/23 04:00 81 05/10/23 00:00 104 H 18 132/62 98 05/09/23 20:00 97.8 F 106 H 18 105/68 96 05/09/23 19:05 102 H 16 93 L 05/09/23 16:00 97.1 F 94 H 18 121/75 98 05/09/23 14:28 98 H 18 93 L 05/09/23 12:44 97.5 F 95 H 22 108/59 98 05/09/23 12:25 107/76 05/09/23 12:20 93 H 21 99/64 99 05/09/23 12:15 96 H 17 106/55 99 05/09/23 12:10 93 H 21 112/57 99 05/09/23 12:05 87 17 102/74 99 05/09/23 12:00 87 14 90/65 98 05/09/23 11:55 87 17 103/63 98 05/09/23 11:50 86 16 100/60 98 05/09/23 11:46 92 H 21 97/53 97 05/09/23 11:40 100 H 21 89/66 98 05/09/23 11:35 90 20 88/60 100 05/09/23 11:30 92 H 12 107/57 99 05/09/23 11:25 94 H 15 85/58 98 05/09/23 11:21 96 H 16 86/67 99 05/09/23 11:15 97 H 24 100/59 98 05/09/23 11:10 95 H 21 89/63 97 05/09/23 11:05 93 H 13 88/63 98 05/09/23 11:00 98 H 20 95/46 97 05/09/23 10:56 99 H 18 88/64 96 05/09/23 10:50 107 H 21 88/59 98 05/09/23 10:45 100 H 17 90/52 99 05/09/23 10:44 107 H 15 83/61 99 05/09/23 10:10 105 H 20 83/59 99 05/09/23 09:54 97.3 F 118 H 18 79/57 98 Pain Assessment - Last Documented Pain Intensity 4 Pain Scale Used FLACC Intake and Output: Intake & Output 05/07/23 05/08/23 05/09/23 05/10/23 11:59 11:59 11:59 11:59 Intake Total 855 Output Total 1800 Balance -945 Weight 93.894 kg 96.2 kg Lab Results: Lab Results-Last 24 Hours 05/09/23 05/09/23 05/09/23 Range/Units 10:00 10:00 10:02 WBC 10.1 (4.0-10.5) x10^3/uL RBC 3.50 L (4.1-5.4) x10^6/uL Hgb 10.0 L (12.0-16.0) g/dL Hct 32.3 L (35-47) % MCV 92.3 (78-100) fL MCH 28.6 (26-32) pg MCHC 31.0 L (32-36) g/dL RDW 13.2 (11.5-14.0) % Plt Count 334 (150-450) x10^3/uL MPV 9.8 (7.5-11.0) fL Gran % 84.1 H (36.0-66.0) % Immature Gran % (Auto) 0.3 (0.00-0.4) % Reticulocyte % (Auto) (0.6-2.6) % Nucleat RBC Rel Count 0.0 (0.00-0.1) % Eos # (Auto) 0.01 (0-0.5) x10^3/uL Immature Gran # (Auto) 0.03 (0.00-0.03) x10^3u/L Absolute Lymphs (auto) 0.88 L (1.0-4.6) x10^3/uL Absolute Monos (auto) 0.66 (0.0-1.3) x10^3/uL Absolute Nucleated RBC 0.00 (0.00-0.01) x10^3u/L Lymphocytes % 8.7 L (24.0-44.0) % Monocytes % 6.5 (0.0-12.0) % Eosinophils % 0.1 (0.00-5.0) % Basophils % 0.3 (0.0-0.4) % Absolute Granulocytes 8.52 H (1.4-6.9) x10^3/uL Basophils # 0.03 (0-0.4) x10^3/uL Retic Hgb Content (28-38) pg Sodium 136 L (137-145) mmol/L Potassium 4.0 (3.5-5.1) mmol/L Chloride 107 (98-107) mmol/L Carbon Dioxide 20 L (22-30) mmol/L Anion Gap 13.3 (5-15) MEQ/L BUN 48 H (7-17) mg/dL Creatinine 3.28 H (0.52-1.04) mg/dL Estimated GFR 15.8 ML/MIN Glucose 152 H (74-106) mg/dL Calcium 9.1 (8.4-10.2) mg/dL Iron (37-170) ug/dL TIBC (265-462) ug/dL Iron Saturation (20-39) % Ferritin (11.1-264) ng/mL Total Bilirubin 0.40 (0.2-1.3) mg/dL AST 21 (14-36) U/L ALT 15 (0-35) U/L Alkaline Phosphatase 113 (38-126) U/L Troponin I < 0.012 (0.000-0.034) ng/mL Serum Total Protein 6.8 (6.3-8.2) g/dL Albumin 3.9 (3.5-5.0) g/dL Vitamin B12 (239-931) pg/mL Folic Acid (2.76 - >20) ng/mL Urine Color (Yellow) Urine Appearance (Clear) Urine pH (4.6-8.0) Ur Specific [place] (1.005-1.030) Urine Protein (Negative) Urine Glucose (UA) (Negative) mg/dL Urine Ketones (Negative) Urine Blood (Negative) Urine Nitrite (Negative) Urine Bilirubin (Negative) Urine Urobilinogen (0.2) mg/dL Ur Leukocyte Esterase (Negative) U Hyaline Cast (Auto) (0-2) /LPF Urine Microscopic RBC (0-5) /HPF Urine Microscopic WBC (0-5) /HPF Ur Epithelial Cells (None Seen) /HPF Urine Bacteria (None Seen) /HPF Urine Culture Reflexed (NO) Ur Random Creatinine MG/DL Urine Sodium (30-90) mmol/L Urine Opiates Level (NEGATIVE) Ur Methadone (NEGATIVE) Urine Barbiturates (NEGATIVE) Ur Phencyclidine (PCP) (NEGATIVE) Urine Amphetamine (NEGATIVE) U Benzodiazepine Level (NEGATIVE) Urine Cocaine (NEGATIVE) Urine Marijuana (THC) (NEGATIVE) 05/09/23 05/09/23 05/09/23 Range/Units 13:55 14:15 14:50 WBC (4.0-10.5) x10^3/uL RBC (4.1-5.4) x10^6/uL Hgb (12.0-16.0) g/dL Hct (35-47) % MCV (78-100) fL MCH (26-32) pg MCHC (32-36) g/dL RDW (11.5-14.0) % Plt Count (150-450) x10^3/uL MPV (7.5-11.0) fL Gran % (36.0-66.0) % Immature Gran % (Auto) (0.00-0.4) % Reticulocyte % (Auto) 1.0 (0.6-2.6) % Nucleat RBC Rel Count (0.00-0.1) % Eos # (Auto) (0-0.5) x10^3/uL Immature Gran # (Auto) (0.00-0.03) x10^3u/L Absolute Lymphs (auto) (1.0-4.6) x10^3/uL Absolute Monos (auto) (0.0-1.3) x10^3/uL Absolute Nucleated RBC (0.00-0.01) x10^3u/L Lymphocytes % (24.0-44.0) % Monocytes % (0.0-12.0) % Eosinophils % (0.00-5.0) % Basophils % (0.0-0.4) % Absolute Granulocytes (1.4-6.9) x10^3/uL Basophils # (0-0.4) x10^3/uL Retic Hgb Content 30.5 (28-38) pg Sodium (137-145) mmol/L Potassium (3.5-5.1) mmol/L Chloride (98-107) mmol/L Carbon Dioxide (22-30) mmol/L Anion Gap (5-15) MEQ/L BUN (7-17) mg/dL Creatinine (0.52-1.04) mg/dL Estimated GFR ML/MIN Glucose (74-106) mg/dL Calcium (8.4-10.2) mg/dL Iron (37-170) ug/dL TIBC (265-462) ug/dL Iron Saturation (20-39) % Ferritin 106 (11.1-264) ng/mL Total Bilirubin (0.2-1.3) mg/dL AST (14-36) U/L ALT (0-35) U/L Alkaline Phosphatase (38-126) U/L Troponin I < 0.012 (0.000-0.034) ng/mL Serum Total Protein (6.3-8.2) g/dL Albumin (3.5-5.0) g/dL Vitamin B12 474 (239-931) pg/mL Folic Acid 10.7 (2.76 - >20) ng/mL Urine Color (Yellow) Urine Appearance (Clear) Urine pH (4.6-8.0) Ur Specific [place] (1.005-1.030) Urine Protein (Negative) Urine Glucose (UA) (Negative) mg/dL Urine Ketones (Negative) Urine Blood (Negative) Urine Nitrite (Negative) Urine Bilirubin (Negative) Urine Urobilinogen (0.2) mg/dL Ur Leukocyte Esterase (Negative) U Hyaline Cast (Auto) (0-2) /LPF Urine Microscopic RBC (0-5) /HPF Urine Microscopic WBC (0-5) /HPF Ur Epithelial Cells (None Seen) /HPF Urine Bacteria (None Seen) /HPF Urine Culture Reflexed (NO) Ur Random Creatinine MG/DL Urine Sodium (30-90) mmol/L Urine Opiates Level (NEGATIVE) Ur Methadone (NEGATIVE) Urine Barbiturates (NEGATIVE) Ur Phencyclidine (PCP) (NEGATIVE) Urine Amphetamine (NEGATIVE) U Benzodiazepine Level (NEGATIVE) Urine Cocaine (NEGATIVE) Urine Marijuana (THC) (NEGATIVE) 05/09/23 05/09/23 05/09/23 Range/Units 14:50 18:33 18:37 WBC (4.0-10.5) x10^3/uL RBC (4.1-5.4) x10^6/uL Hgb (12.0-16.0) g/dL Hct (35-47) % MCV (78-100) fL MCH (26-32) pg MCHC (32-36) g/dL RDW (11.5-14.0) % Plt Count (150-450) x10^3/uL MPV (7.5-11.0) fL Gran % (36.0-66.0) % Immature Gran % (Auto) (0.00-0.4) % Reticulocyte % (Auto) (0.6-2.6) % Nucleat RBC Rel Count (0.00-0.1) % Eos # (Auto) (0-0.5) x10^3/uL Immature Gran # (Auto) (0.00-0.03) x10^3u/L Absolute Lymphs (auto) (1.0-4.6) x10^3/uL Absolute Monos (auto) (0.0-1.3) x10^3/uL Absolute Nucleated RBC (0.00-0.01) x10^3u/L Lymphocytes % (24.0-44.0) % Monocytes % (0.0-12.0) % Eosinophils % (0.00-5.0) % Basophils % (0.0-0.4) % Absolute Granulocytes (1.4-6.9) x10^3/uL Basophils # (0-0.4) x10^3/uL Retic Hgb Content (28-38) pg Sodium (137-145) mmol/L Potassium (3.5-5.1) mmol/L Chloride (98-107) mmol/L Carbon Dioxide (22-30) mmol/L Anion Gap (5-15) MEQ/L BUN (7-17) mg/dL Creatinine (0.52-1.04) mg/dL Estimated GFR ML/MIN Glucose (74-106) mg/dL Calcium (8.4-10.2) mg/dL Iron 30 L (37-170) ug/dL TIBC 211 L (265-462) ug/dL Iron Saturation 14 L (20-39) % Ferritin (11.1-264) ng/mL Total Bilirubin (0.2-1.3) mg/dL AST (14-36) U/L ALT (0-35) U/L Alkaline Phosphatase (38-126) U/L Troponin I < 0.012 (0.000-0.034) ng/mL Serum Total Protein (6.3-8.2) g/dL Albumin (3.5-5.0) g/dL Vitamin B12 (239-931) pg/mL Folic Acid (2.76 - >20) ng/mL Urine Color Yellow (Yellow) Urine Appearance Clear (Clear) Urine pH 5.5 (4.6-8.0) Ur Specific [place] 1.010 (1.005-1.030) Urine Protein Negative (Negative) Urine Glucose (UA) Negative (Negative) mg/dL Urine Ketones Negative (Negative) Urine Blood Negative (Negative) Urine Nitrite Negative (Negative) Urine Bilirubin Negative (Negative) Urine Urobilinogen 0.2 (0.2) mg/dL Ur Leukocyte Esterase Trace A (Negative) U Hyaline Cast (Auto) NONE SEEN (0-2) /LPF Urine Microscopic RBC 0-2 (0-5) /HPF Urine Microscopic WBC 0-2 (0-5) /HPF Ur Epithelial Cells None Seen (None Seen) /HPF Urine Bacteria None Seen (None Seen) /HPF Urine Culture Reflexed NO (NO) Ur Random Creatinine MG/DL Urine Sodium (30-90) mmol/L Urine Opiates Level (NEGATIVE) Ur Methadone (NEGATIVE) Urine Barbiturates (NEGATIVE) Ur Phencyclidine (PCP) (NEGATIVE) Urine Amphetamine (NEGATIVE) U Benzodiazepine Level (NEGATIVE) Urine Cocaine (NEGATIVE) Urine Marijuana (THC) (NEGATIVE) 05/09/23 05/10/23 Range/Units 18:37 04:20 WBC 5.2 (4.0-10.5) x10^3/uL RBC 2.88 L (4.1-5.4) x10^6/uL Hgb 8.2 L (12.0-16.0) g/dL Hct 26.5 L (35-47) % MCV 92.0 (78-100) fL MCH 28.5 (26-32) pg MCHC 30.9 L (32-36) g/dL RDW 13.3 (11.5-14.0) % Plt Count 254 (150-450) x10^3/uL MPV 10.0 (7.5-11.0) fL Gran % 61.9 (36.0-66.0) % Immature Gran % (Auto) 0.2 (0.00-0.4) % Reticulocyte % (Auto) (0.6-2.6) % Nucleat RBC Rel Count 0.0 (0.00-0.1) % Eos # (Auto) 0.08 (0-0.5) x10^3/uL Immature Gran # (Auto) 0.01 (0.00-0.03) x10^3u/L Absolute Lymphs (auto) 1.53 (1.0-4.6) x10^3/uL Absolute Monos (auto) 0.32 (0.0-1.3) x10^3/uL Absolute Nucleated RBC 0.00 (0.00-0.01) x10^3u/L Lymphocytes % 29.7 (24.0-44.0) % Monocytes % 6.2 (0.0-12.0) % Eosinophils % 1.6 (0.00-5.0) % Basophils % 0.4 (0.0-0.4) % Absolute Granulocytes 3.20 (1.4-6.9) x10^3/uL Basophils # 0.02 (0-0.4) x10^3/uL Retic Hgb Content (28-38) pg Sodium (137-145) mmol/L Potassium (3.5-5.1) mmol/L Chloride (98-107) mmol/L Carbon Dioxide (22-30) mmol/L Anion Gap (5-15) MEQ/L BUN (7-17) mg/dL Creatinine (0.52-1.04) mg/dL Estimated GFR ML/MIN Glucose (74-106) mg/dL Calcium (8.4-10.2) mg/dL Iron (37-170) ug/dL TIBC (265-462) ug/dL Iron Saturation (20-39) % Ferritin (11.1-264) ng/mL Total Bilirubin (0.2-1.3) mg/dL AST (14-36) U/L ALT (0-35) U/L Alkaline Phosphatase (38-126) U/L Troponin I (0.000-0.034) ng/mL Serum Total Protein (6.3-8.2) g/dL Albumin (3.5-5.0) g/dL Vitamin B12 (239-931) pg/mL Folic Acid (2.76 - >20) ng/mL Urine Color (Yellow) Urine Appearance (Clear) Urine pH (4.6-8.0) Ur Specific [place] (1.005-1.030) Urine Protein (Negative) Urine Glucose (UA) (Negative) mg/dL Urine Ketones (Negative) Urine Blood (Negative) Urine Nitrite (Negative) Urine Bilirubin (Negative) Urine Urobilinogen (0.2) mg/dL Ur Leukocyte Esterase (Negative) U Hyaline Cast (Auto) (0-2) /LPF Urine Microscopic RBC (0-5) /HPF Urine Microscopic WBC (0-5) /HPF Ur Epithelial Cells (None Seen) /HPF Urine Bacteria (None Seen) /HPF Urine Culture Reflexed (NO) Ur Random Creatinine 57.7 MG/DL Urine Sodium 70 (30-90) mmol/L Urine Opiates Level POSITIVE A (NEGATIVE) Ur Methadone NEGATIVE (NEGATIVE) Urine Barbiturates NEGATIVE (NEGATIVE) Ur Phencyclidine (PCP) NEGATIVE (NEGATIVE) Urine Amphetamine POSITIVE A (NEGATIVE) U Benzodiazepine Level NEGATIVE (NEGATIVE) Urine Cocaine NEGATIVE (NEGATIVE) Urine Marijuana (THC) NEGATIVE (NEGATIVE) Radiology Exams: Radiology Procedures Category Date Time Status CERVICAL SPINE WO CONTRAST [CT] Stat Exams 05/09/23 10:08 Completed CHEST 1 VIEW (PORTABLE) Stat Exams 05/09/23 10:03 Completed ECHO W/2D AND DOPPLER [US] Routine Exams 05/09/23 12:39 Taken HEAD WITHOUT CONTRAST [CT] Stat Exams 05/09/23 10:08 Completed KIDNEY [US] Routine Exams 05/09/23 12:41 Completed Multi-Disciplinary Progress Notes: Multi-Disciplinary Progress Notes 05/09/23 15:36 Physical Therapy Note by Chadd([id number])Diamante P.T. WILL EVAL TOMORROW 05/10. Initialized on 05/09/23 15:36 - END OF NOTE 05/09/23 13:07 Occupational Therapy Note by Monica Temple OT received evaluation order on patient and chart reviewed. OT will hold evaluation at this time, as patient recently transferred from ER to floor for further assessment and treatment. OT will hold until blood pressure is more appropriate for out of bed activity and ADLs. OT will follow up as appropriate. Initialized on 05/09/23 13:07 - END OF NOTE Assessment/Plan (1) JUAN (acute kidney injury) Current Visit: Yes Status: Acute Assessment & Plan: -Hold lisinopril/HCTZ/BB -Urine sodium/creat -Strict I&O -baseline at 1.1-1.7 -IVF, monitor for fluid overload -renal US -Monitor renal/lytes daily -Avoid nephrotoxic agents, renal dose medications 05/10: -Creat improving, now at 1.95 -UDS +for opiates/amphetamine -most likely secondary to dehydration -Continue IVF -renal US unremarkable Code(s): N17.9 - ACUTE KIDNEY FAILURE, UNSPECIFIED (2) Anemia Current Visit: Yes Status: Acute Assessment & Plan: -Hgb at 10, which is near baseline, will add iron studies, b12/fol, ferritin 05/10: -iron sat at 14%, Hgb with notable drop, may be secondary to dilution, will continue to monitor Code(s): D64.9 - ANEMIA, UNSPECIFIED (3) Left pulmonary infiltrate on CXR Current Visit: Yes Status: Acute Assessment & Plan: -CXR showing left lung base infiltrate versus atelectasis and left upper lung fibrosis/scarring -No recent sick contacts -No shortness of breath/cough -RA -IS Code(s): R91.8 - OTHER NONSPECIFIC ABNORMAL FINDING OF LUNG FIELD (4) Episode of syncope Current Visit: Yes Status: Acute Assessment & Plan: Syncopal episode -Unwitnessed -CT head with negative findings -Most likely seconday to hypotension -EKG with ST, unremarkable otherwise, repeat in a.m., trops negative so far -Echo -Med review for offending agents- hold BB -Check orthostatic vitals -PT/OT -UDS -Tele -Urinalysis 05/10: -Most likely secondary to hypovolemia -UDS + Opiates/amphetamines -Ortho vitals negative Code(s): R55 - SYNCOPE AND COLLAPSE (5) Hypotension Current Visit: Yes Status: Acute Assessment & Plan: -May be secondary to BB/HCTZ, hold -orthostatic vitals 05/10: -BP stable, will continue to monitor, continue to hold hctz, can resume BB Code(s): I95.9 - HYPOTENSION, UNSPECIFIED (6) COPD (chronic obstructive pulmonary disease) Current Visit: Yes Status: Acute Assessment & Plan: - Does not appear to be in exacerbation -On RA which is her baseline -Supplemental oxygen with spo2 goal > 92% -RT consult -Nebs/INH prn Code(s): N17.9 - ACUTE KIDNEY FAILURE, UNSPECIFIED (2) Anemia Current Visit: Yes Status: Acute Code(s): D64.9 - ANEMIA, UNSPECIFIED (3) Left pulmonary infiltrate on CXR Current Visit: Yes Status: Acute Code(s): R91.8 - OTHER NONSPECIFIC ABNORMAL FINDING OF LUNG FIELD (4) Episode of syncope Current Visit: Yes Status: Acute Code(s): R55 - SYNCOPE AND COLLAPSE (5) Hypotension Current Visit: Yes Status: Acute Code(s): I95.9 - HYPOTENSION, UNSPECIFIED (6) COPD (chronic obstructive pulmonary disease) Current Visit: Yes Status: Acute
[2023-05-10 08:37] VITALS: RESP 16
[2023-05-10] MEDS ORDERED: NON-FORMULARY ITEM IH SCH (09:00)
--- NOTE | 2023-05-10 09:32 | PCM.DS ---
Discharge Summary Date of Admission: 05/09/23 12:30 Date of Discharge: 05/10/23 Admitting Physician: ALISON BENSON MD Primary Care Provider: GERONIMO MARTINEZ Allergies Allergies paroxetine [From Paxil] Adverse Reaction (Verified 05/09/23 09:50) tramadol Adverse Reaction (Verified 05/09/23 09:50) Vomiting Hospital Summary - Hospital Course Hospital Course: Ned is a 57 year old female with a pmhx of HLD, HTN, GERD, anxiety, chronic neck pain (OP pain managment/injection yesterday)and OA who presented to ED 05/09/23 under the advisement of her PCP for hypotension. Patient states she had a syncopal episode last evening (unwitnessed). States she was going to the bathroom and felt dizzy and passed out, recovered within five minutes. She repo rts having multiple episodes similar to this. In ED patient was afebrile, tachycardic, and hypotensive with BP at 79/57. CT head with no acute findings. CT spine with no acute findings. CXR demonstrates left lung base infiltrate versus atelectasis and left upper lung fibrosis/scarring. EKG with ST HR [address] elevations/deviatons. Lab findings remarkable for hgb at 10, mild hyponatremia at 136, JUAN with creat at 3.28 (baseline around 1.1-1.7), BUN 48. Patient given 1L fluid bolus. Patient admitted with syncopal episode and JUAN. No overnight events. Orthostatic vitals negative, BP stabilized. Kidney function with noted improvement. Of note UDS positive for amphetamines. Patient denies illicit drug use. Patient requesting discharge. Advised her to hold lisinopril/hctz until follow up with PCP and increase fluid intake. She will need follow up on Saturday to recheck labs. Patient agreeable to plan. Discharge Note New Diagnosis:JUAN New Medications: Hold lisinopril/hctz Follow Up: PCP Saturday with labs Latest Assessment & Plan (1) JUAN (acute kidney injury) Current Visit: Yes Status: Acute Assessment & Plan: -Hold lisinopril/HCTZ/BB -Urine sodium/creat -Strict I&O -baseline at 1.1-1.7 -IVF, monitor for fluid overload -renal US -Monitor renal/lytes daily -Avoid nephrotoxic agents, renal dose medications 05/10: -Creat improving, now at 1.95 -UDS +for opiates/amphetamine -most likely secondary to dehydration -Continue IVF -renal US unremarkable Code(s): N17.9 - ACUTE KIDNEY FAILURE, UNSPECIFIED (2) Anemia Current Visit: Yes Status: Acute Assessment & Plan: -Hgb at 10, which is near baseline, will add iron studies, b12/fol, ferritin 05/10: -iron sat at 14%, Hgb with notable drop, may be secondary to dilution, will continue to monitor Code(s): D64.9 - ANEMIA, UNSPECIFIED (3) Left pulmonary infiltrate on CXR Current Visit: Yes Status: Acute Assessment & Plan: -CXR showing left lung base infiltrate versus atelectasis and left upper lung fibrosis/scarring -No recent sick contacts -No shortness of breath/cough -RA -IS Code(s): R91.8 - OTHER NONSPECIFIC ABNORMAL FINDING OF LUNG FIELD (4) Episode of syncope Current Visit: Yes Status: Acute Assessment & Plan: Syncopal episode -Unwitnessed -CT head with negative findings -Most likely seconday to hypotension -EKG with ST, unremarkable otherwise, repeat in a.m., trops negative so far -Echo -Med review for offending agents- hold BB -Check orthostatic vitals -PT/OT -UDS -Tele -Urinalysis 05/10: -Most likely secondary to hypovolemia -UDS + Opiates/amphetamines -Ortho vitals negative Code(s): R55 - SYNCOPE AND COLLAPSE (5) Hypotension Current Visit: Yes Status: Acute Assessment & Plan: -May be secondary to BB/HCTZ, hold -orthostatic vitals 05/10: -BP stable, will continue to monitor, continue to hold hctz, can resume BB Code(s): I95.9 - HYPOTENSION, UNSPECIFIED (6) COPD (chronic obstructive pulmonary disease) Current Visit: Yes Status: Acute Assessment & Plan: - Does not appear to be in exacerbation -On RA which is her baseline -Supplemental oxygen with spo2 goal > 92% -RT consult -Nebs/INH prn I spent 35 minutes [id number] with the patient on the day of discharge performing discharge exam, discussing hospital stay and discharge instructions with patient and caregivers, preparation of discharge records, prescriptions & referral forms and addressing any questions/concerns the patient had as documented above. - Vitals & Intake/Output Vital Signs: Vital Signs Temperature 97.8 F 05/10/23 07:56 Pulse Rate 87 05/10/23 08:35 Respiratory Rate 16 05/10/23 08:35 Blood Pressure 132/62 05/10/23 07:56 O2 Sat by Pulse Oximetry 95 05/10/23 08:35 Intake & Output: Intake & Output 05/07/23 05/08/23 05/09/23 05/10/23 11:59 11:59 11:59 11:59 Intake Total 1335 Output Total 1800 Balance -465 Weight 93.894 kg 96.2 kg - Lab Result Diagrams: 05/10/23 04:20 05/10/23 04:20 Lab Results-Last 24 Hrs: Lab Results-Last 24 Hours 05/09/23 05/09/23 05/09/23 Range/Units 10:00 10:00 10:02 WBC 10.1 (4.0-10.5) x10^3/uL RBC 3.50 L (4.1-5.4) x10^6/uL Hgb 10.0 L (12.0-16.0) g/dL Hct 32.3 L (35-47) % MCV 92.3 (78-100) fL MCH 28.6 (26-32) pg MCHC 31.0 L (32-36) g/dL RDW 13.2 (11.5-14.0) % Plt Count 334 (150-450) x10^3/uL MPV 9.8 (7.5-11.0) fL Gran % 84.1 H (36.0-66.0) % Immature Gran % (Auto) 0.3 (0.00-0.4) % Reticulocyte % (Auto) (0.6-2.6) % Nucleat RBC Rel Count 0.0 (0.00-0.1) % Eos # (Auto) 0.01 (0-0.5) x10^3/uL Immature Gran # (Auto) 0.03 (0.00-0.03) x10^3u/L Absolute Lymphs (auto) 0.88 L (1.0-4.6) x10^3/uL Absolute Monos (auto) 0.66 (0.0-1.3) x10^3/uL Absolute Nucleated RBC 0.00 (0.00-0.01) x10^3u/L Lymphocytes % 8.7 L (24.0-44.0) % Monocytes % 6.5 (0.0-12.0) % Eosinophils % 0.1 (0.00-5.0) % Basophils % 0.3 (0.0-0.4) % Absolute Granulocytes 8.52 H (1.4-6.9) x10^3/uL Basophils # 0.03 (0-0.4) x10^3/uL Retic Hgb Content (28-38) pg Sodium 136 L (137-145) mmol/L Potassium 4.0 (3.5-5.1) mmol/L Chloride 107 (98-107) mmol/L Carbon Dioxide 20 L (22-30) mmol/L Anion Gap 13.3 (5-15) MEQ/L BUN 48 H (7-17) mg/dL Creatinine 3.28 H (0.52-1.04) mg/dL Estimated GFR 15.8 ML/MIN Glucose 152 H (74-106) mg/dL Calcium 9.1 (8.4-10.2) mg/dL Iron (37-170) ug/dL TIBC (265-462) ug/dL Iron Saturation (20-39) % Ferritin (11.1-264) ng/mL Total Bilirubin 0.40 (0.2-1.3) mg/dL AST 21 (14-36) U/L ALT 15 (0-35) U/L Alkaline Phosphatase 113 (38-126) U/L Troponin I < 0.012 (0.000-0.034) ng/mL Serum Total Protein 6.8 (6.3-8.2) g/dL Albumin 3.9 (3.5-5.0) g/dL Vitamin B12 (239-931) pg/mL Folic Acid (2.76 - >20) ng/mL Urine Color (Yellow) Urine Appearance (Clear) Urine pH (4.6-8.0) Ur Specific [place] (1.005-1.030) Urine Protein (Negative) Urine Glucose (UA) (Negative) mg/dL Urine Ketones (Negative) Urine Blood (Negative) Urine Nitrite (Negative) Urine Bilirubin (Negative) Urine Urobilinogen (0.2) mg/dL Ur Leukocyte Esterase (Negative) U Hyaline Cast (Auto) (0-2) /LPF Urine Microscopic RBC (0-5) /HPF Urine Microscopic WBC (0-5) /HPF Ur Epithelial Cells (None Seen) /HPF Urine Bacteria (None Seen) /HPF Urine Culture Reflexed (NO) Ur Random Creatinine MG/DL Urine Sodium (30-90) mmol/L Urine Opiates Level (NEGATIVE) Ur Methadone (NEGATIVE) Urine Barbiturates (NEGATIVE) Ur Phencyclidine (PCP) (NEGATIVE) Urine Amphetamine (NEGATIVE) U Benzodiazepine Level (NEGATIVE) Urine Cocaine (NEGATIVE) Urine Marijuana (THC) (NEGATIVE) 05/09/23 05/09/23 05/09/23 Range/Units 13:55 14:15 14:50 WBC (4.0-10.5) x10^3/uL RBC (4.1-5.4) x10^6/uL Hgb (12.0-16.0) g/dL Hct (35-47) % MCV (78-100) fL MCH (26-32) pg MCHC (32-36) g/dL RDW (11.5-14.0) % Plt Count (150-450) x10^3/uL MPV (7.5-11.0) fL Gran % (36.0-66.0) % Immature Gran % (Auto) (0.00-0.4) % Reticulocyte % (Auto) 1.0 (0.6-2.6) % Nucleat RBC Rel Count (0.00-0.1) % Eos # (Auto) (0-0.5) x10^3/uL Immature Gran # (Auto) (0.00-0.03) x10^3u/L Absolute Lymphs (auto) (1.0-4.6) x10^3/uL Absolute Monos (auto) (0.0-1.3) x10^3/uL Absolute Nucleated RBC (0.00-0.01) x10^3u/L Lymphocytes % (24.0-44.0) % Monocytes % (0.0-12.0) % Eosinophils % (0.00-5.0) % Basophils % (0.0-0.4) % Absolute Granulocytes (1.4-6.9) x10^3/uL Basophils # (0-0.4) x10^3/uL Retic Hgb Content 30.5 (28-38) pg Sodium (137-145) mmol/L Potassium (3.5-5.1) mmol/L Chloride (98-107) mmol/L Carbon Dioxide (22-30) mmol/L Anion Gap (5-15) MEQ/L BUN (7-17) mg/dL Creatinine (0.52-1.04) mg/dL Estimated GFR ML/MIN Glucose (74-106) mg/dL Calcium (8.4-10.2) mg/dL Iron (37-170) ug/dL TIBC (265-462) ug/dL Iron Saturation (20-39) % Ferritin 106 (11.1-264) ng/mL Total Bilirubin (0.2-1.3) mg/dL AST (14-36) U/L ALT (0-35) U/L Alkaline Phosphatase (38-126) U/L Troponin I < 0.012 (0.000-0.034) ng/mL Serum Total Protein (6.3-8.2) g/dL Albumin (3.5-5.0) g/dL Vitamin B12 474 (239-931) pg/mL Folic Acid 10.7 (2.76 - >20) ng/mL Urine Color (Yellow) Urine Appearance (Clear) Urine pH (4.6-8.0) Ur Specific [place] (1.005-1.030) Urine Protein (Negative) Urine Glucose (UA) (Negative) mg/dL Urine Ketones (Negative) Urine Blood (Negative) Urine Nitrite (Negative) Urine Bilirubin (Negative) Urine Urobilinogen (0.2) mg/dL Ur Leukocyte Esterase (Negative) U Hyaline Cast (Auto) (0-2) /LPF Urine Microscopic RBC (0-5) /HPF Urine Microscopic WBC (0-5) /HPF Ur Epithelial Cells (None Seen) /HPF Urine Bacteria (None Seen) /HPF Urine Culture Reflexed (NO) Ur Random Creatinine MG/DL Urine Sodium (30-90) mmol/L Urine Opiates Level (NEGATIVE) Ur Methadone (NEGATIVE) Urine Barbiturates (NEGATIVE) Ur Phencyclidine (PCP) (NEGATIVE) Urine Amphetamine (NEGATIVE) U Benzodiazepine Level (NEGATIVE) Urine Cocaine (NEGATIVE) Urine Marijuana (THC) (NEGATIVE) 05/09/23 05/09/23 05/09/23 Range/Units 14:50 18:33 18:37 WBC (4.0-10.5) x10^3/uL RBC (4.1-5.4) x10^6/uL Hgb (12.0-16.0) g/dL Hct (35-47) % MCV (78-100) fL MCH (26-32) pg MCHC (32-36) g/dL RDW (11.5-14.0) % Plt Count (150-450) x10^3/uL MPV (7.5-11.0) fL Gran % (36.0-66.0) % Immature Gran % (Auto) (0.00-0.4) % Reticulocyte % (Auto) (0.6-2.6) % Nucleat RBC Rel Count (0.00-0.1) % Eos # (Auto) (0-0.5) x10^3/uL Immature Gran # (Auto) (0.00-0.03) x10^3u/L Absolute Lymphs (auto) (1.0-4.6) x10^3/uL Absolute Monos (auto) (0.0-1.3) x10^3/uL Absolute Nucleated RBC (0.00-0.01) x10^3u/L Lymphocytes % (24.0-44.0) % Monocytes % (0.0-12.0) % Eosinophils % (0.00-5.0) % Basophils % (0.0-0.4) % Absolute Granulocytes (1.4-6.9) x10^3/uL Basophils # (0-0.4) x10^3/uL Retic Hgb Content (28-38) pg Sodium (137-145) mmol/L Potassium (3.5-5.1) mmol/L Chloride (98-107) mmol/L Carbon Dioxide (22-30) mmol/L Anion Gap (5-15) MEQ/L BUN (7-17) mg/dL Creatinine (0.52-1.04) mg/dL Estimated GFR ML/MIN Glucose (74-106) mg/dL Calcium (8.4-10.2) mg/dL Iron 30 L (37-170) ug/dL TIBC 211 L (265-462) ug/dL Iron Saturation 14 L (20-39) % Ferritin (11.1-264) ng/mL Total Bilirubin (0.2-1.3) mg/dL AST (14-36) U/L ALT (0-35) U/L Alkaline Phosphatase (38-126) U/L Troponin I < 0.012 (0.000-0.034) ng/mL Serum Total Protein (6.3-8.2) g/dL Albumin (3.5-5.0) g/dL Vitamin B12 (239-931) pg/mL Folic Acid (2.76 - >20) ng/mL Urine Color Yellow (Yellow) Urine Appearance Clear (Clear) Urine pH 5.5 (4.6-8.0) Ur Specific [place] 1.010 (1.005-1.030) Urine Protein Negative (Negative) Urine Glucose (UA) Negative (Negative) mg/dL Urine Ketones Negative (Negative) Urine Blood Negative (Negative) Urine Nitrite Negative (Negative) Urine Bilirubin Negative (Negative) Urine Urobilinogen 0.2 (0.2) mg/dL Ur Leukocyte Esterase Trace A (Negative) U Hyaline Cast (Auto) NONE SEEN (0-2) /LPF Urine Microscopic RBC 0-2 (0-5) /HPF Urine Microscopic WBC 0-2 (0-5) /HPF Ur Epithelial Cells None Seen (None Seen) /HPF Urine Bacteria None Seen (None Seen) /HPF Urine Culture Reflexed NO (NO) Ur Random Creatinine MG/DL Urine Sodium (30-90) mmol/L Urine Opiates Level (NEGATIVE) Ur Methadone (NEGATIVE) Urine Barbiturates (NEGATIVE) Ur Phencyclidine (PCP) (NEGATIVE) Urine Amphetamine (NEGATIVE) U Benzodiazepine Level (NEGATIVE) Urine Cocaine (NEGATIVE) Urine Marijuana (THC) (NEGATIVE) 05/09/23 05/10/23 05/10/23 Range/Units 18:37 04:20 04:20 WBC 5.2 (4.0-10.5) x10^3/uL RBC 2.88 L (4.1-5.4) x10^6/uL Hgb 8.2 L (12.0-16.0) g/dL Hct 26.5 L (35-47) % MCV 92.0 (78-100) fL MCH 28.5 (26-32) pg MCHC 30.9 L (32-36) g/dL RDW 13.3 (11.5-14.0) % Plt Count 254 (150-450) x10^3/uL MPV 10.0 (7.5-11.0) fL Gran % 61.9 (36.0-66.0) % Immature Gran % (Auto) 0.2 (0.00-0.4) % Reticulocyte % (Auto) (0.6-2.6) % Nucleat RBC Rel Count 0.0 (0.00-0.1) % Eos # (Auto) 0.08 (0-0.5) x10^3/uL Immature Gran # (Auto) 0.01 (0.00-0.03) x10^3u/L Absolute Lymphs (auto) 1.53 (1.0-4.6) x10^3/uL Absolute Monos (auto) 0.32 (0.0-1.3) x10^3/uL Absolute Nucleated RBC 0.00 (0.00-0.01) x10^3u/L Lymphocytes % 29.7 (24.0-44.0) % Monocytes % 6.2 (0.0-12.0) % Eosinophils % 1.6 (0.00-5.0) % Basophils % 0.4 (0.0-0.4) % Absolute Granulocytes 3.20 (1.4-6.9) x10^3/uL Basophils # 0.02 (0-0.4) x10^3/uL Retic Hgb Content (28-38) pg Sodium 139 (137-145) mmol/L Potassium 3.6 (3.5-5.1) mmol/L Chloride 111 H (98-107) mmol/L Carbon Dioxide 22 (22-30) mmol/L Anion Gap 9.2 (5-15) MEQ/L BUN 29 H (7-17) mg/dL Creatinine 1.95 H (0.52-1.04) mg/dL Estimated GFR 29.5 ML/MIN Glucose 114 H (74-106) mg/dL Calcium 8.3 L (8.4-10.2) mg/dL Iron (37-170) ug/dL TIBC (265-462) ug/dL Iron Saturation (20-39) % Ferritin (11.1-264) ng/mL Total Bilirubin 0.30 (0.2-1.3) mg/dL AST 17 (14-36) U/L ALT 13 (0-35) U/L Alkaline Phosphatase 87 (38-126) U/L Troponin I (0.000-0.034) ng/mL Serum Total Protein 5.8 L (6.3-8.2) g/dL Albumin 3.1 L (3.5-5.0) g/dL Vitamin B12 (239-931) pg/mL Folic Acid (2.76 - >20) ng/mL Urine Color (Yellow) Urine Appearance (Clear) Urine pH (4.6-8.0) Ur Specific [place] (1.005-1.030) Urine Protein (Negative) Urine Glucose (UA) (Negative) mg/dL Urine Ketones (Negative) Urine Blood (Negative) Urine Nitrite (Negative) Urine Bilirubin (Negative) Urine Urobilinogen (0.2) mg/dL Ur Leukocyte Esterase (Negative) U Hyaline Cast (Auto) (0-2) /LPF Urine Microscopic RBC (0-5) /HPF Urine Microscopic WBC (0-5) /HPF Ur Epithelial Cells (None Seen) /HPF Urine Bacteria (None Seen) /HPF Urine Culture Reflexed (NO) Ur Random Creatinine 57.7 MG/DL Urine Sodium 70 (30-90) mmol/L Urine Opiates Level POSITIVE A (NEGATIVE) Ur Methadone NEGATIVE (NEGATIVE) Urine Barbiturates NEGATIVE (NEGATIVE) Ur Phencyclidine (PCP) NEGATIVE (NEGATIVE) Urine Amphetamine POSITIVE A (NEGATIVE) U Benzodiazepine Level NEGATIVE (NEGATIVE) Urine Cocaine NEGATIVE (NEGATIVE) Urine Marijuana (THC) NEGATIVE (NEGATIVE) - Radiology Exams Ordered Rad Exams-Entire Visit: Radiology Procedures Category Date Time Status CERVICAL SPINE WO CONTRAST [CT] Stat Exams 05/09/23 10:08 Completed CHEST 1 VIEW (PORTABLE) Stat Exams 05/09/23 10:03 Completed ECHO W/2D AND DOPPLER [US] Routine Exams 05/09/23 12:39 Taken HEAD WITHOUT CONTRAST [CT] Stat Exams 05/09/23 10:08 Completed KIDNEY [US] Routine Exams 05/09/23 12:41 Completed - Procedures and Test Procedures and Tests throughout Hospitalization: Therapy Orders & Screens 05/09/23 12:37 PT Eval & Treat (MD Order) ONCE Reason for Eval:: weakness/syncope Diagnosis: acute renal injury, syncope, dehydration EKG REPEAT IN AM Comment: Diagnosis: acute renal injury, syncope, dehydration OT Eval and Treat (MD Order) ONCE Comment: Physician Instructions: Reason For Exam: Diagnosis: acute renal injury, syncope, dehydration 05/09/23 14:27 Respiratory Therapy Assessment DAILY Comment: Diagnosis: acute renal injury, syncope, dehydration 05/09/23 15:39 Respiratory MDI UD Comment: Diagnosis: acute renal injury, syncope, dehydration Discharge Exam General Appearance: no apparent distress Neurologic Exam: alert, oriented x 3, cooperative Eye Exam: PERRL Ears, Nose, Throat Exam: normal ENT inspection Neck Exam: normal inspection Respiratory Exam: normal breath sounds, lungs clear Cardiovascular Exam: regular rate/rhythm, normal heart sounds Gastrointestinal/Abdomen Exam: soft, normal bowel sounds Pelvic Exam: deferred Rectal Exam: deferred Back Exam: normal inspection Extremity Exam: normal inspection Skin Exam: normal color Final Diagnosis/Problem List - Final Discharge Diagnosis/Problem (1) JUAN (acute kidney injury) Current Visit: Yes Status: Acute Code(s): N17.9 - ACUTE KIDNEY FAILURE, UNSPECIFIED (2) Anemia Current Visit: Yes Status: Acute Code(s): D64.9 - ANEMIA, UNSPECIFIED (3) Left pulmonary infiltrate on CXR Current Visit: Yes Status: Acute Code(s): R91.8 - OTHER NONSPECIFIC ABNORMAL FINDING OF LUNG FIELD (4) Episode of syncope Current Visit: Yes Status: Acute Code(s): R55 - SYNCOPE AND COLLAPSE (5) Hypotension Current Visit: Yes Status: Acute Code(s): I95.9 - HYPOTENSION, UNSPECIFIED (6) COPD (chronic obstructive pulmonary disease) Current Visit: Yes Status: Acute - Discharge Disposition: Home, Self-Care Condition: Fair Prescriptions: Continue Omeprazole 40 mg PO DAILY Famotidine 40 mg PO DAILY Simvastatin 10 mg [Zocor 10MG] 10 mg PO HS Albuterol Sulfate [Albuterol Sulfate Hfa] 2 puffs IH Q4HPRN PRN PRN Reason: Shortness Of Breath/Wheezing Calcium/D3/Mag Oxide/C/K2/Min [Boneup 3 Per Day Capsule] 1 each PO DAILY Alendronate Sodium 10 mg PO WEEKLY Fluticasone/Umeclidin/Vilanter [Trelegy Ellipta 200-62.5-25] 1 puff IH DAILY Quetiapine Fumarate 100 mg [Seroquel 100 MG] 100 mg PO HS Quetiapine Fumarate [Seroquel] 400 mg PO HS Metoprolol Tartrate 50 mg [Lopressor 50 MG] 50 mg PO BID Vilazodone HCl 20 mg PO HS Discontinued Lisinopril/Hydrochlorothiazide [Lisinopril-Hctz 20-25 mg Tab] 1 tab PO DAILY Follow up with: GERONIMO MARTINEZ MD [Primary Care Provider] - 05/17/23 3:30 pm
[2023-05-10] MEDS ORDERED: Protonix 40MG Tablet PO SCH (10:00)
[2023-05-10] MEDS ORDERED: Lopressor 50 MG PO SCH (10:00)
[2023-05-10] MEDS ORDERED: Calcium 500MG W/Vit D Tablet PO SCH (10:00)
[2023-05-10] MEDS ORDERED: D3 PO SCH (10:00)
[2023-05-10] MEDS ORDERED: K2 PO SCH (10:00)
[2023-05-10] MEDS ORDERED: NON-FORMULARY ITEM (Fluticasone/Umeclidin/Vilanter [Trelegy Ellipta 200-62.5-25] 1 EACH Bl IH SCH (10:00)
[2023-05-10] MEDS ORDERED: [UNRECOGNIZED DRUG - OTHER] PO SCH (10:00)
[2023-05-10] MEDS ORDERED: CALCIUM PO SCH (10:00)
[2023-05-10] MEDS ORDERED: NON-FORMULARY ITEM (Famotidine [Famotidine] 40 MG Tablet) PO SCH (10:00)
[2023-05-10] MEDS ORDERED: MAG OXIDE PO SCH (10:00)
[2023-05-10] MEDS ORDERED: ENOXAPARIN SODIUM SQ SCH (10:00)
[2023-05-10] MEDS ORDERED: PATIENT OWN MEDICATION IH SCH (10:00)
[2023-05-10] MEDS ORDERED: NON-FORMULARY ITEM (Omeprazole [Omeprazole] 20 MG Capsule.Dr) PO SCH (10:00)
[2023-05-10] MEDS ORDERED: Rocephin 1000 MG INJ** 1,000 MG in Sodium Chloride 100ML MINI-BAG PLUS 100 ML IV SCH ×4 (10:00)
[2023-05-10] MEDS ORDERED: Pepcid 20 MG PO SCH (10:00)
[2023-05-10] MEDS ORDERED: INJECTAFER 750 MG IV ONE (10:16)
--- NOTE | 2023-05-10 11:39 | PCM.DS ---
Discharge Summary Date of Admission: 05/09/23 12:30 Admitting Physician: ALISON BENSON MD Primary Care Provider: GERONIMO MARTINEZ Allergies Allergies paroxetine [From Paxil] Adverse Reaction (Verified 05/09/23 09:50) tramadol Adverse Reaction (Verified 05/09/23 09:50) Vomiting Hospital Summary - Vitals & Intake/Output Vital Signs: Vital Signs Temperature 97.8 F 05/10/23 07:56 Pulse Rate 94 H 05/10/23 09:28 Respiratory Rate 16 05/10/23 08:35 Blood Pressure 104/68 05/10/23 09:28 O2 Sat by Pulse Oximetry 95 05/10/23 09:28 Intake & Output: Intake & Output 05/07/23 05/08/23 05/09/23 05/10/23 11:59 11:59 11:59 11:59 Intake Total 1335 Output Total 1800 Balance -465 Weight 93.894 kg 96.2 kg - Lab Result Diagrams: 05/10/23 04:20 05/10/23 04:20 Lab Results-Last 24 Hrs: Lab Results-Last 24 Hours 05/09/23 05/09/23 05/09/23 Range/Units 13:55 14:15 14:50 WBC (4.0-10.5) x10^3/uL RBC (4.1-5.4) x10^6/uL Hgb (12.0-16.0) g/dL Hct (35-47) % MCV (78-100) fL MCH (26-32) pg MCHC (32-36) g/dL RDW (11.5-14.0) % Plt Count (150-450) x10^3/uL MPV (7.5-11.0) fL Gran % (36.0-66.0) % Immature Gran % (Auto) (0.00-0.4) % Reticulocyte % (Auto) 1.0 (0.6-2.6) % Nucleat RBC Rel Count (0.00-0.1) % Eos # (Auto) (0-0.5) x10^3/uL Immature Gran # (Auto) (0.00-0.03) x10^3u/L Absolute Lymphs (auto) (1.0-4.6) x10^3/uL Absolute Monos (auto) (0.0-1.3) x10^3/uL Absolute Nucleated RBC (0.00-0.01) x10^3u/L Lymphocytes % (24.0-44.0) % Monocytes % (0.0-12.0) % Eosinophils % (0.00-5.0) % Basophils % (0.0-0.4) % Absolute Granulocytes (1.4-6.9) x10^3/uL Basophils # (0-0.4) x10^3/uL Retic Hgb Content 30.5 (28-38) pg Sodium (137-145) mmol/L Potassium (3.5-5.1) mmol/L Chloride (98-107) mmol/L Carbon Dioxide (22-30) mmol/L Anion Gap (5-15) MEQ/L BUN (7-17) mg/dL Creatinine (0.52-1.04) mg/dL Estimated GFR ML/MIN Glucose (74-106) mg/dL Calcium (8.4-10.2) mg/dL Iron (37-170) ug/dL TIBC (265-462) ug/dL Iron Saturation (20-39) % Ferritin 106 (11.1-264) ng/mL Total Bilirubin (0.2-1.3) mg/dL AST (14-36) U/L ALT (0-35) U/L Alkaline Phosphatase (38-126) U/L Troponin I < 0.012 (0.000-0.034) ng/mL Serum Total Protein (6.3-8.2) g/dL Albumin (3.5-5.0) g/dL Vitamin B12 474 (239-931) pg/mL Folic Acid 10.7 (2.76 - >20) ng/mL Urine Color (Yellow) Urine Appearance (Clear) Urine pH (4.6-8.0) Ur Specific Veteran (1.005-1.030) Urine Protein (Negative) Urine Glucose (UA) (Negative) mg/dL Urine Ketones (Negative) Urine Blood (Negative) Urine Nitrite (Negative) Urine Bilirubin (Negative) Urine Urobilinogen (0.2) mg/dL Ur Leukocyte Esterase (Negative) U Hyaline Cast (Auto) (0-2) /LPF Urine Microscopic RBC (0-5) /HPF Urine Microscopic WBC (0-5) /HPF Ur Epithelial Cells (None Seen) /HPF Urine Bacteria (None Seen) /HPF Urine Culture Reflexed (NO) Ur Random Creatinine MG/DL Urine Sodium (30-90) mmol/L Urine Opiates Level (NEGATIVE) Ur Methadone (NEGATIVE) Urine Barbiturates (NEGATIVE) Ur Phencyclidine (PCP) (NEGATIVE) Urine Amphetamine (NEGATIVE) U Benzodiazepine Level (NEGATIVE) Urine Cocaine (NEGATIVE) Urine Marijuana (THC) (NEGATIVE) 05/09/23 05/09/23 05/09/23 Range/Units 14:50 18:33 18:37 WBC (4.0-10.5) x10^3/uL RBC (4.1-5.4) x10^6/uL Hgb (12.0-16.0) g/dL Hct (35-47) % MCV (78-100) fL MCH (26-32) pg MCHC (32-36) g/dL RDW (11.5-14.0) % Plt Count (150-450) x10^3/uL MPV (7.5-11.0) fL Gran % (36.0-66.0) % Immature Gran % (Auto) (0.00-0.4) % Reticulocyte % (Auto) (0.6-2.6) % Nucleat RBC Rel Count (0.00-0.1) % Eos # (Auto) (0-0.5) x10^3/uL Immature Gran # (Auto) (0.00-0.03) x10^3u/L Absolute Lymphs (auto) (1.0-4.6) x10^3/uL Absolute Monos (auto) (0.0-1.3) x10^3/uL Absolute Nucleated RBC (0.00-0.01) x10^3u/L Lymphocytes % (24.0-44.0) % Monocytes % (0.0-12.0) % Eosinophils % (0.00-5.0) % Basophils % (0.0-0.4) % Absolute Granulocytes (1.4-6.9) x10^3/uL Basophils # (0-0.4) x10^3/uL Retic Hgb Content (28-38) pg Sodium (137-145) mmol/L Potassium (3.5-5.1) mmol/L Chloride (98-107) mmol/L Carbon Dioxide (22-30) mmol/L Anion Gap (5-15) MEQ/L BUN (7-17) mg/dL Creatinine (0.52-1.04) mg/dL Estimated GFR ML/MIN Glucose (74-106) mg/dL Calcium (8.4-10.2) mg/dL Iron 30 L (37-170) ug/dL TIBC 211 L (265-462) ug/dL Iron Saturation 14 L (20-39) % Ferritin (11.1-264) ng/mL Total Bilirubin (0.2-1.3) mg/dL AST (14-36) U/L ALT (0-35) U/L Alkaline Phosphatase (38-126) U/L Troponin I < 0.012 (0.000-0.034) ng/mL Serum Total Protein (6.3-8.2) g/dL Albumin (3.5-5.0) g/dL Vitamin B12 (239-931) pg/mL Folic Acid (2.76 - >20) ng/mL Urine Color Yellow (Yellow) Urine Appearance Clear (Clear) Urine pH 5.5 (4.6-8.0) Ur Specific Veteran 1.010 (1.005-1.030) Urine Protein Negative (Negative) Urine Glucose (UA) Negative (Negative) mg/dL Urine Ketones Negative (Negative) Urine Blood Negative (Negative) Urine Nitrite Negative (Negative) Urine Bilirubin Negative (Negative) Urine Urobilinogen 0.2 (0.2) mg/dL Ur Leukocyte Esterase Trace A (Negative) U Hyaline Cast (Auto) NONE SEEN (0-2) /LPF Urine Microscopic RBC 0-2 (0-5) /HPF Urine Microscopic WBC 0-2 (0-5) /HPF Ur Epithelial Cells None Seen (None Seen) /HPF Urine Bacteria None Seen (None Seen) /HPF Urine Culture Reflexed NO (NO) Ur Random Creatinine MG/DL Urine Sodium (30-90) mmol/L Urine Opiates Level (NEGATIVE) Ur Methadone (NEGATIVE) Urine Barbiturates (NEGATIVE) Ur Phencyclidine (PCP) (NEGATIVE) Urine Amphetamine (NEGATIVE) U Benzodiazepine Level (NEGATIVE) Urine Cocaine (NEGATIVE) Urine Marijuana (THC) (NEGATIVE) 05/09/23 05/10/23 05/10/23 Range/Units 18:37 04:20 04:20 WBC 5.2 (4.0-10.5) x10^3/uL RBC 2.88 L (4.1-5.4) x10^6/uL Hgb 8.2 L (12.0-16.0) g/dL Hct 26.5 L (35-47) % MCV 92.0 (78-100) fL MCH 28.5 (26-32) pg MCHC 30.9 L (32-36) g/dL RDW 13.3 (11.5-14.0) % Plt Count 254 (150-450) x10^3/uL MPV 10.0 (7.5-11.0) fL Gran % 61.9 (36.0-66.0) % Immature Gran % (Auto) 0.2 (0.00-0.4) % Reticulocyte % (Auto) (0.6-2.6) % Nucleat RBC Rel Count 0.0 (0.00-0.1) % Eos # (Auto) 0.08 (0-0.5) x10^3/uL Immature Gran # (Auto) 0.01 (0.00-0.03) x10^3u/L Absolute Lymphs (auto) 1.53 (1.0-4.6) x10^3/uL Absolute Monos (auto) 0.32 (0.0-1.3) x10^3/uL Absolute Nucleated RBC 0.00 (0.00-0.01) x10^3u/L Lymphocytes % 29.7 (24.0-44.0) % Monocytes % 6.2 (0.0-12.0) % Eosinophils % 1.6 (0.00-5.0) % Basophils % 0.4 (0.0-0.4) % Absolute Granulocytes 3.20 (1.4-6.9) x10^3/uL Basophils # 0.02 (0-0.4) x10^3/uL Retic Hgb Content (28-38) pg Sodium 139 (137-145) mmol/L Potassium 3.6 (3.5-5.1) mmol/L Chloride 111 H (98-107) mmol/L Carbon Dioxide 22 (22-30) mmol/L Anion Gap 9.2 (5-15) MEQ/L BUN 29 H (7-17) mg/dL Creatinine 1.95 H (0.52-1.04) mg/dL Estimated GFR 29.5 ML/MIN Glucose 114 H (74-106) mg/dL Calcium 8.3 L (8.4-10.2) mg/dL Iron (37-170) ug/dL TIBC (265-462) ug/dL Iron Saturation (20-39) % Ferritin (11.1-264) ng/mL Total Bilirubin 0.30 (0.2-1.3) mg/dL AST 17 (14-36) U/L ALT 13 (0-35) U/L Alkaline Phosphatase 87 (38-126) U/L Troponin I (0.000-0.034) ng/mL Serum Total Protein 5.8 L (6.3-8.2) g/dL Albumin 3.1 L (3.5-5.0) g/dL Vitamin B12 (239-931) pg/mL Folic Acid (2.76 - >20) ng/mL Urine Color (Yellow) Urine Appearance (Clear) Urine pH (4.6-8.0) Ur Specific Veteran (1.005-1.030) Urine Protein (Negative) Urine Glucose (UA) (Negative) mg/dL Urine Ketones (Negative) Urine Blood (Negative) Urine Nitrite (Negative) Urine Bilirubin (Negative) Urine Urobilinogen (0.2) mg/dL Ur Leukocyte Esterase (Negative) U Hyaline Cast (Auto) (0-2) /LPF Urine Microscopic RBC (0-5) /HPF Urine Microscopic WBC (0-5) /HPF Ur Epithelial Cells (None Seen) /HPF Urine Bacteria (None Seen) /HPF Urine Culture Reflexed (NO) Ur Random Creatinine 57.7 MG/DL Urine Sodium 70 (30-90) mmol/L Urine Opiates Level POSITIVE A (NEGATIVE) Ur Methadone NEGATIVE (NEGATIVE) Urine Barbiturates NEGATIVE (NEGATIVE) Ur Phencyclidine (PCP) NEGATIVE (NEGATIVE) Urine Amphetamine POSITIVE A (NEGATIVE) U Benzodiazepine Level NEGATIVE (NEGATIVE) Urine Cocaine NEGATIVE (NEGATIVE) Urine Marijuana (THC) NEGATIVE (NEGATIVE) - Radiology Exams Ordered Rad Exams-Entire Visit: Radiology Procedures Category Date Time Status CERVICAL SPINE WO CONTRAST [CT] Stat Exams 05/09/23 10:08 Completed CHEST 1 VIEW (PORTABLE) Stat Exams 05/09/23 10:03 Completed ECHO W/2D AND DOPPLER [US] Routine Exams 05/09/23 12:39 Taken HEAD WITHOUT CONTRAST [CT] Stat Exams 05/09/23 10:08 Completed KIDNEY [US] Routine Exams 05/09/23 12:41 Completed - Procedures and Test Procedures and Tests throughout Hospitalization: Therapy Orders & Screens 05/09/23 12:37 PT Eval & Treat (MD Order) ONCE Reason for Eval:: weakness/syncope Diagnosis: acute renal injury, syncope, dehydration EKG REPEAT IN AM Comment: Diagnosis: acute renal injury, syncope, dehydration OT Eval and Treat (MD Order) ONCE Comment: Physician Instructions: Reason For Exam: Diagnosis: acute renal injury, syncope, dehydration 05/09/23 14:27 Respiratory Therapy Assessment DAILY Comment: Diagnosis: acute renal injury, syncope, dehydration 05/09/23 15:39 Respiratory MDI UD Comment: Diagnosis: acute renal injury, syncope, dehydration Final Diagnosis/Problem List - Final Discharge Diagnosis/Problem (1) JUAN (acute kidney injury) Current Visit: Yes Status: Acute Code(s): N17.9 - ACUTE KIDNEY FAILURE, UNSPECIFIED (2) Anemia Current Visit: Yes Status: Acute Code(s): D64.9 - ANEMIA, UNSPECIFIED (3) Left pulmonary infiltrate on CXR Current Visit: Yes Status: Acute Code(s): R91.8 - OTHER NONSPECIFIC ABNORMAL FINDING OF LUNG FIELD (4) Episode of syncope Current Visit: Yes Status: Acute Code(s): R55 - SYNCOPE AND COLLAPSE (5) Hypotension Current Visit: Yes Status: Acute Code(s): I95.9 - HYPOTENSION, UNSPECIFIED (6) COPD (chronic obstructive pulmonary disease) Current Visit: Yes Status: Acute - Discharge Disposition: Home, Self-Care Condition: Fair Prescriptions: Continue Omeprazole 40 mg PO DAILY Famotidine 40 mg PO DAILY Simvastatin 10 mg [Zocor 10MG] 10 mg PO HS Albuterol Sulfate [Albuterol Sulfate Hfa] 2 puffs IH Q4HPRN PRN PRN Reason: Shortness Of Breath/Wheezing Calcium/D3/Mag Oxide/C/K2/Min [Boneup 3 Per Day Capsule] 1 each PO DAILY Alendronate Sodium 10 mg PO WEEKLY Fluticasone/Umeclidin/Vilanter [Trelegy Ellipta 200-62.5-25] 1 puff IH DAILY Metoprolol Tartrate 50 mg [Lopressor 50 MG] 50 mg PO BID Vilazodone HCl 20 mg PO HS Discontinued Lisinopril/Hydrochlorothiazide [Lisinopril-Hctz 20-25 mg Tab] 1 tab PO DAILY Quetiapine Fumarate 100 mg [Seroquel 100 MG] 100 mg PO HS Quetiapine Fumarate [Seroquel] 400 mg PO HS Outpatient Orders: CBC Time Frame: 1 Week, Facility: [facility]. Hosp, Location: LABORATORY CMP Facility: [facility], Location: LABORATORY Instructions: Dehydration, Adult (DC), Syncope (Fainting) (DC) Follow up with: ANTONY GREGG [CONSULTING PHYSICIAN] - 05/31/23 11:00 am ([place] Office) GERONIMO MARTINEZ MD [Primary Care Provider] - 05/15/23 11:00 am
--- NOTE | 2023-05-10 11:47 | CONS ---
CONSULT DATE: 05/10/2023 REASON FOR CONSULT: Acute kidney injury and chronic kidney disease. HISTORY: The patient is a 57-year-old lady who has history of multiple medical problems including hypertension who was seen us at [facility] about three years ago. She has been lost to follow up. At that time she had severe acute renal failure. She had a creatinine of 5.6. It was thought to be due to acute tubular necrosis (ATN) from serum septic shock and subsequently was improving. She has been lost to follow up since then. Her last creatinine on 05/01/2023 was 1.0. She apparently presented to the emergency room from the doctor's office with complaints of blood pressure being low and syncopal episode. She was found to have a systolic blood pressure of 77. She apparently takes lisinopril/hydrochlorothiazide at home along with other medications. Her urine drug screen was found to be positive for amphetamines. The patient denies any vomiting, diarrhea, fever. She was admitted for low blood pressure. On labs her creatinine was found to be 3.28, hemoglobin 10.0. Nephrology service was consulted. The patient had been receiving IV fluids. At this time she denies any vomiting, diarrhea, fever, chest pain, abdominal pain. No urine difficulties or any hematuria. Denies any NSAID use. REVIEW OF SYSTEMS: Complains of generalized weakness. No other complaints except listed above. PAST MEDICAL HISTORY: Hypertension, hyperlipidemia, chronic obstructive pulmonary disease, osteoarthritis, anxiety, depression. PAST SURGICAL HISTORY: Tubal ligation. Back ablation. MEDICATIONS: Home medications and medicines in the hospital were reviewed per the medication sheet. Home medicines included lisinopril/hydrochlorothiazide but has not been resumed here because her blood pressure has been low. ALLERGIES: PAROXETINE. TRAMADOL. SOCIAL HISTORY: She denies any smoking, denies alcohol. Urine drug screen positive illicit substance abuse but she denies substance use. FAMILY HISTORY: She denies any kidney disease in the family. PHYSICAL EXAMINATION: The patient is awake, alert, oriented x3 and in no acute distress. On admission temperature was 97.3F, pulse rate 118, respiratory rate 18, blood pressure 107/57. Saturating 98%. Today, her blood pressure is 101/60. HEENT: Head normocephalic. Eyes nonicteric, positive pallor. ENT mucosa moist. NECK: No JVD. Trachea midline. CHEST: Bilateral clear to auscultation. No rales. No respiratory distress. CVS: Appears regular. EXTREMITIES: No peripheral edema bilateral. ABDOMEN: Soft, nontender, positive bowel sounds. No palpable edema. NEUROLOGIC: Awake, alert, oriented x3. Following commands and answering all questions. PSYCHIATRIC: Appropriate mood and affect. SKIN: Warm and dry. LAB DATA AND TESTS: On admission hemoglobin 10.0, white blood cells 10.1, sodium 136, potassium 4.0, bicarb 20, BUN 48, creatinine 3.2. Head CT showed normal CT scan. Troponin less than 0.012. CT spine showed negative acute fracture. Chest x-ray revealed an acute infiltrate. EKG showed sinus tachycardia. Urine drug screen was positive for amphetamine. B12 and folic acid within normal limits. Iron saturation 15%. Hemoglobin 8.2, white blood cells 5.2, PLT count 254,000. UA leukocyte esterase trace, nitrate negative. Today, the creatinine is 1.9, sodium 139, hemoglobin 8.2. ASSESSMENT AND PLAN: A 57--year-old lady with medical problems: 1) Acute kidney injury on chronic kidney disease. Acute kidney injury likely secondary to dehydration, acute tubular necrosis and low blood pressure. I agree with holding lisinopril/hydrochlorothiazide. She is status post fluids. Blood pressure and renal function is improving. She needs outpatient follow up. She seems stable to discharge at this time. I recommend increasing oral hydration, discontinue IV fluids, avoid ENDER, ARB's in this acute setting with diuretics for right now. Avoid NSAID's. I counseled the patient on need for outpatient follow up. I will see her in the office next week for chronic kidney disease due to hypertension, atherosclerosis and arteriosclerosis. I will monitor renal function as an outpatient. 2) Hypertension. Blood pressure has been low. Avoid ENDER, ARB's and diuretics at this time. Alternative agents if needed. I will monitor blood pressure. 3) Anemia due to iron deficiency. Will monitor her hemoglobin. 4) Hyperlipidemia. Will continue statin use. 5) Chronic obstructive pulmonary disease. Management per primary team. 6) Substance abuse. The patient is counseled. I recommend follow up with primary provider. Thank you for this consultation. Please do not hesitate to contact me for any questions. I recommend follow up within one to two weeks as outpatient.
[2023-05-10 11:50] VITALS: BP 118/77; PULSE 67; TEMP 98.3; O2SAT 96
[2023-05-10] MEDS ORDERED: INJECTAFER 750 MG 750 MG in Sodium Chloride 0.9% 250 ML 250 ML IV SCH (12:00)
[2023-05-11] MEDS ORDERED: ROCEPHIN 1 GM / 100 ML NaCl 1 GM/100 ML IVPB IV SCH (10:00)
== END 2023-05-10 12:28 | disposition home or self-care (01) ==
LOC: ED 09:45 → MED SURG 12:30
PROVIDERS: ADMIT Internal Medicine; ATTEND Internal Medicine
DX: N17.9 Acute kidney failure, unspecified (principal); R55 Syncope and collapse; D64.9 Anemia, unspecified; R91.8 Other nonspecific abnormal finding of lung field; I95.9 Hypotension, unspecified; J44.9 Chronic obstructive pulmonary disease, unspecified; I10 Essential (primary) hypertension; E78.5 Hyperlipidemia, unspecified; E86.0 Dehydration; W19.XXXA Unspecified fall, initial encounter; F15.90 Other stimulant use, unspecified, uncomplicated; Z79.899 Other long term (current) drug therapy; Z20.828 Contact with and (suspected) exposure to other viral communicable diseases
CPT/HCPCS: 36000; 36415; 70450; 71045; 72125; 76770; 80053; 80307; 81001; 82570; 82607; 82728; 82746; 83540; 83550; 84300; 84484; 85025; 85045; 85046; 93005; 93041; 93268; 93306; 94640; 94760; 96360; 99285; J0696; J1439; J1650; A9270-GY; G0378

== ENCOUNTER 2023-06-05 12:44 | Day surgery (SDC) | payer OTHER ==
[2023-06-05] MEDS ORDERED: XYLOCAINE-MPF 1% 5ML SDV IJ ONE (12:45)
[2023-06-05] MEDS ORDERED: BUPIVACAINE 0.5% VIAL IJ ONE (12:45)
[2023-06-05] MEDS ORDERED: Decadron 4 MG INJ IV ONE (12:45)
[2023-06-05] MEDS ORDERED: DIPRIVAN 200 MG/20 ML IV ONE ×2 (15:41→15:49)
[2023-06-05] MEDS ORDERED: Versed 2 MG/2 ML Injection ONE (15:42)
[2023-06-05] MEDS ORDERED: Lactated Ringers 1,000 ML IV ONE (15:58)
--- NOTE | 2023-06-05 16:31 | XRAY ---
Indication: Right C3-C5 RFA. Intraoperative fluoroscopy provided for 52 seconds. 3 digital spot image submitted for interpretation demonstrates posterior needle tips projecting over the expected right C3-C5 nerve roots. Correlate with intraoperative findings/report.
--- NOTE | 2023-06-05 16:40 | XRAY ---
52 seconds of fluoroscopy was used in surgery for a right C3-C5 RFA.
== END 2023-06-05 16:22 | disposition home or self-care (01) ==
LOC: SDC-PAIN 12:44
PROVIDERS: ATTEND Psychiatry & Neurology Pain Medicine
DX: M47.812 Spondylosis without myelopathy or radiculopathy, cervical region (principal)
CPT/HCPCS: 64633; 64634; 72040; 77002; J1100; J2250; J2704

== ENCOUNTER 2023-06-10 13:08 | Emergency (ER) | payer OTHER ==
--- NOTE | 2023-06-10 13:33 | ERPHSYRPT ---
- History of Present Illness Time Seen by Provider: 06/10/23 13:25 Source: patient Exam Limitations: no limitations Patient Subjective Stated Complaint: PT states "I was bringing the garbage in last night and I tripped and fell in the driveway and hurt my right knee." Triage Nursing Assessment: PT presented alert and oriented X 3, skin pwd. Pt ambulates with a limp. Pt right knee has no swelling or bruising noted, tender to touch. Physician History: Patient is a 57-year-old white female who was taking out her garbage last night in the dark when she fell into a hole in her driveway. Her injuries were confined to the right knee she had no loss of consciousness she is able to bear weight and walk but she has continued pain. She is also noted some swelling of the joint. Method of Injury: fell Occurred: yesterday Quality: constant, throbbing Severity of Pain-Max: moderate Severity of Pain-Current: mild Lower Extremities Pain: knee: right (Right knee is warm to the touch slightly swollen and a tiny bit erythematous) Modifying Factors: Improves With: movement Allergies/Adverse Reactions: paroxetine [From Paxil] Adverse Reaction (Verified 05/09/23 09:50) tramadol Adverse Reaction (Verified 05/09/23 09:50) Vomiting Home Medications: Omeprazole 40 mg PO DAILY 01/08/20 [History] Albuterol Sulfate [Albuterol Sulfate Hfa] 2 puffs IH Q4HPRN PRN 09/28/22 [History] Alendronate Sodium 10 mg PO WEEKLY 09/28/22 [History] Calcium/D3/Mag Oxide/C/K2/Min [Boneup 3 Per Day Capsule] 1 each PO DAILY 09/28/22 [History] Famotidine 40 mg PO DAILY 09/28/22 [History] Fluticasone/Umeclidin/Vilanter [Trelegy Ellipta 200-62.5-25] 1 puff IH DAILY 09/28/22 [History] Simvastatin 10 mg [Zocor 10MG] 10 mg PO HS 09/28/22 [History] Metoprolol Tartrate 50 mg [Lopressor 50 MG] 50 mg PO BID 05/09/23 [History] Vilazodone HCl 20 mg PO HS 05/09/23 [History] Hx Tetanus, Diphtheria Vaccination/Date Given: Yes Hx Influenza Vaccination/Date Given: Yes Hx Pneumococcal Vaccination/Date Given: No Immunizations Up to Date: Yes Travel Risk - International Travel Have you traveled outside of the country in past 3 weeks: No - Coronavirus Screening Are you exhibiting any of the following symptoms?: No Close contact with a COVID-19 positive Pt in past 14-21 Days: No - Vaccine Status Have you recieved a Covid-19 vaccination: Yes [employer] Manager: Unknown - Vaccination Dates Dates if Unknown: unknown - Review of Systems Constitutional: No Fever, No Chills Eyes: No Symptoms Ears, Nose, & Throat: No Symptoms Respiratory: No Cough, No Dyspnea Cardiac: No Chest Pain, No Edema, No Syncope Abdominal/Gastrointestinal: No Abdominal Pain, No Nausea, No Vomiting, No Diarrhea Genitourinary Symptoms: No Dysuria Musculoskeletal: Joint Redness, Joint Pain, Joint Swelling, No Back Pain, No Neck Pain Skin: No Rash Neurological: No Dizziness, No Focal Weakness, No Sensory Changes Psychological: No Symptoms Endocrine: No Symptoms All Other Systems: Reviewed and Negative - Past Medical History Pertinent Past Medical History: Yes Neurological History: Other ENT History: No Pertinent History Cardiac History: High Cholesterol, Hypertension Respiratory History: COPD Endocrine Medical History: No Pertinent History Musculoskeletal History: Fractures, Osteoarthritis GI Medical History: GERD History: No Pertinent History Psycho-Social History: Anxiety, Depression Female Reproductive Disorders: No Pertinent History Other Medical History: RADIATING PAIN INTO THE RIGHT WRIST. - Past Surgical History Past Surgical History: Yes Neuro Surgical History: No Pertinent History Cardiac: No Pertinent History Respiratory: No Pertinent History Gastrointestinal: No Pertinent History Genitourinary: No Pertinent History Musculoskeletal: Other Female Surgical History: Tubal Ligation Other Surgical History: HEEL SPUR, back ablasion - Social History Smoking Status: Never smoker Exposure to second hand smoke: Yes Drug Use: none Patient Lives Alone: No - Nursing Vital Signs Nursing Vital Signs: Initial Vital Signs Temperature 97.3 F 06/10/23 13:12 Pulse Rate 94 H 06/10/23 13:12 Respiratory Rate 18 06/10/23 13:12 Blood Pressure 142/101 06/10/23 13:12 O2 Sat by Pulse Oximetry 97 06/10/23 13:12 Pain Scale Pain Intensity 8 - Physical Exam General Appearance: mild distress, alert Eyes, Ears, Nose, Throat Exam: moist mucous membranes Neck Exam: non-tender, supple Cardiovascular/Respiratory Exam: chest non-tender, normal breath sounds, regular rate/rhythm, no respiratory distress Gastrointestinal/Abdominal Exam: non-tender, guarding Back Exam: normal inspection, No vertebral tenderness Hips Exam: bilateral: non-tender, normal inspection, normal range of motion Legs Exam: bilateral leg: non-tender, normal inspection, normal range of motion Knees Exam: right knee: bone tenderness, pain, soft tissue tenderness, swelling Ankle Exam: bilateral ankle: non-tender, normal inspection, normal range of motion Foot Exam: bilateral foot: non-tender, normal inspection, normal range of motion Neuro/Tendon Exam: normal sensation, normal motor functions Mental Status Exam: alert, oriented x 3, cooperative Skin Exam: normal color, warm, dry SpO2: 97 Procedures - Splinting Location of Splint: Right, Knee Type of Splint: Other (Immobilizer) Splint Applied By: ED Nurse Pre-Proc Neuro Vasc Exam: normal Post-Proc Neuro Vasc Exam: neurovascular intact, unchanged from pre-exam - Course Nursing assessment & vital signs reviewed: Yes - Radiology Exams Right Knee X-ray Interpretation: Reviewed by me (No fracture or dislocation some mild early degenerative changes) Ordered Tests: Active Orders 24 hr Category Date Time Status KNEE (3 VIEWS) Stat Exams 06/10/23 13:19 Completed - Progress Progress: unchanged Medical Desision Making - Diagnostic Testing Diagnostic test were ordered, analyzed, and reviewed by me: Yes Radiological Interpretation: Reviewed by me - Risk of complications Minimal Risk: Minimal risk of morbidity - Departure Departure Disposition: Home Clinical Impression: Right knee sprain Condition: Stable Critical Care Time: No Referrals: GERONIMO MARTINEZ MD [Primary Care Provider] - Follow up/PCP as directed Instructions: Knee Sprain (DC), Knee Pain (DC) Prescriptions: Prednisone 10 mg [Deltasone 10 mg] 10 mg PO TID #12 tablet
--- NOTE | 2023-06-10 13:49 | XRAY ---
Indication: Pain following fall. Comparison: None 3 portable views right knee demonstrates osteopenia, mild medial joint space narrowing, small nonspecific effusion, and tiny medial condyle bone island. No other bony, articular, or soft tissue abnormalities.
[2023-06-10 14:15] VITALS: BP 118/79; PULSE 78; RESP 20; TEMP 97.2; O2SAT 98
== END 2023-06-10 14:28 | disposition home or self-care (01) ==
LOC: ED 13:08
DX: S83.91XA Sprain of unspecified site of right knee, initial encounter (principal); W01.0XXA Fall on same level from slipping, tripping and stumbling without subsequent striking against object, initial encounter; Y93.H9 Activity, other involving exterior property and land maintenance, building and construction; Y92.007 Garden or yard of unspecified non-institutional (private) residence as the place of occurrence of the external cause; E78.5 Hyperlipidemia, unspecified; I10 Essential (primary) hypertension; Z79.899 Other long term (current) drug therapy
CPT/HCPCS: 73562; 99283; L1830

== ENCOUNTER 2023-09-27 07:11 | Day surgery (SDC) | payer BC, OTHER ==
[2023-09-27] MEDS ORDERED: MARCAINE 0.5%-EPI 1:200,000 VL IJ ONE (07:34)
[2023-09-27] MEDS ORDERED: MEFOXIN 2 GM PREMIX** 2 GM/50 ML ML IV ONE (07:40)
[2023-09-27] MEDS: Lactated Ringers 1,000 ML IV SCH (07:44)
[2023-09-27] MEDS ORDERED: CEFAZOLIN 2 GM-D5W BAG** 2 GM/50 ML ML IV ONE (07:49)
[2023-09-27] MEDS: CEFAZOLIN 2 GM-D5W BAG** 2 GM/50 ML ML IV SCH (07:55)
[2023-09-27 07:56] VITALS: RESP 18
[2023-09-27 08:02] LABS: Barbiturate,Urine NEGATIVE (NEGATIVE)
[2023-09-27 08:06] LABS: Benzodiazepine,Urine NEGATIVE (NEGATIVE); Cocaine,Urine NEGATIVE (NEGATIVE); THC,Urine POSITIVE (NEGATIVE)
[2023-09-27 08:10] LABS: Methadone,Urine NEGATIVE (NEGATIVE); Opiate,Urine POSITIVE (NEGATIVE); PCP,Urine NEGATIVE (NEGATIVE)
[2023-09-27 08:14] LABS: Hemoglobin 10.9 g/dL (11.2-15.7); Mean Cell Volume 89.5 fL (79.4-94.8); Mean Corpuscular Hemoglobin 28.7 pg (25.6-32.2); Mean Corpuscular Hgb Concent. 32.1 g/dL (32.2-35.5); Mean Platelet Volume 10.2 fL (9.4-12.3); Platelet Count 236 x10^3/uL (182-369); Red Cell Distribution Width 13.4 % (11.7-14.4)
--- NOTE | 2023-09-27 08:35 | XRAY ---
Indication: Chronic lung disease. Preop exam. Comparison: May 09, 2023 Portable apical lordotic chest is now clear. Heart and mediastinal structures within normal limits. Bony thorax intact again with osteopenia, degenerative changes, scoliosis, and old right 4 rib fracture. Impression: Nonacute chest with chronic bony findings.
[2023-09-27 08:41] LABS: ALBUMIN 3.8 g/dL (3.5-5.0); ANION GAP 6.5 MEQ/L (5-15); BILIRUBIN,TOTAL 0.5 mg/dL (0.2-1.3); Calcium 9.4 mg/dL (8.4-10.2); Creatinine 1 1.14 mg/dL (0.52-1.04); EST GLOMERULAR FILTRATION RATE 56.2 ML/MIN; Potassium 3.6 mmol/L (3.5-5.1); Total Protein 6.5 g/dL (6.3-8.2)
[2023-09-27] MEDS ORDERED: Decadron 4 MG INJ ONE (09:01)
[2023-09-27] MEDS ORDERED: Zofran 4 MG/2 ML VIAL ONE (09:01)
[2023-09-27] MEDS ORDERED: SUBLIMAZE 100 MCG/2 ML ONE ×3 (09:01→10:57)
[2023-09-27] MEDS ORDERED: DIPRIVAN 200 MG/20 ML IV ONE ×2 (09:01→09:16)
[2023-09-27] MEDS ORDERED: Xylocaine-Mpf 2% 5 Ml Vial ONE ×2 (09:01→09:16)
[2023-09-27] MEDS ORDERED: Ephedrine Sulfate 50 MG/ML ONE (09:31)
[2023-09-27] MEDS ORDERED: PITRESSIN 20 UNITS ONE (09:36)
[2023-09-27] MEDS ORDERED: TORAdol 30 mg Injection ONE (10:13)
[2023-09-27 11:37] VITALS: BP 147/83; PULSE 75; TEMP 97.6; O2SAT 92
--- NOTE | 2023-09-28 09:32 | OP ---
SURGERY DATE/TIME: 09/27/2023 5455 [id number] PREOPERATIVE DIAGNOSES: 1) Torn right medial and lateral menisci. 2) Chondromalacia patella. POSTOPERATIVE DIAGNOSES: 1) Torn right medial and lateral menisci. 2) Chondromalacia patella. PROCEDURE: 1) Arthroscopy of the right knee with partial medial and lateral meniscectomies. 2) Chondroplasty of patella. SURGEON: Aron Davila DO ANESTHESIA: General. DESCRIPTION OF PROCEDURE AND FINDINGS: The patient was identified and informed consent was obtained. The patient was taken to the operative suite and placed in supine position on the operating table where the general anesthetic was administered. Once an appropriate level of anesthesia had been obtained, the tourniquet was placed high on the right thigh. The right lower extremity was placed into the knee wing, prepped and draped in the usual sterile fashion. A standard time-out was taken. The leg was exsanguinated and tourniquet elevated to 350 mm of Mercury. A standard superior medial portal was created with an 11 blade. Trocar and cannula were then placed into the joint. The joint was distended with the arthroscopic pump. An inferolateral portal was also created with an 11 blade and the arthroscope was then placed in through a cannula. An 18-gauge spinal needle identified the level for the inferomedial portal which was also created with a #11 blade. The knee was then inspected in a systematic fashion beginning in the suprapatellar pouch where there were no loose bodies or synovial hypertrophy. The undersurface of the patella had some mild grade II to early grade III chondromalacia and a chondroplasty was performed with a motorized shaver. Trochlear groove was noted to be intact. Gutters were inspected and there no loose bodies or synovial hypertrophy. The scope was placed in the medial compartment where a complex tear involving the middle and posterior horns of the medial meniscus was encountered, resected with the handheld biting instrument and shaved to a smooth transition with the shaver. The scope was placed in the intercondylar notch region where the anterior cruciate ligament was noted to be intact. The scope was then placed into the lateral compartment where a complex tear involving the anterior, middle, and posterior horns of the lateral meniscus were encountered. There was noted to be a flap tear of the lateral meniscus. This was resected with the handheld biting instrument and shaved to a smooth transition with the shaver. The patient had some very mild chondromalacia changes noted in both the medial and lateral compartments of the femoral condyles and tibial plateaus. At this point the knee was copiously irrigated and re-inspected. No further pathology was identified. The instrumentation was removed and the portal sites were then closed with interrupted 4-0 nylon suture. The knee was infiltrated with 30 mL of 0.25% Marcaine with epinephrine. Adaptics, 4 x 4's and a standard postoperative arthroscopy dressing applied. The patient transferred to the cart and taken to the recovery room in satisfactory condition having tolerated the procedure well.
== END 2023-09-27 11:55 | disposition home or self-care (01) ==
LOC: SDC 07:11
PROVIDERS: ATTEND Orthopaedic Surgery
DX: S83.281A Other tear of lateral meniscus, current injury, right knee, initial encounter (principal); S83.241A Other tear of medial meniscus, current injury, right knee, initial encounter; M22.41 Chondromalacia patellae, right knee
CPT/HCPCS: 36415; 71045; 80053; 80307; 85027; 93005; J0690; J0694; J1100; J1885; J2405; J2704; J3010